=== PATIENT | female | born 1945 | race Caucasian/White ===

== ENCOUNTER → 2019-09-13 12:26 | Outpatient (BNVA) | payer MEDICARE, MEDICAID, SELFPAY | PROVIDERS: Family Provider Nurse Practitioner; PCP Nurse Practitioner; Referring Provider Nurse Practitioner; Visit Provider Anesthesiology Pain Medicine | DX: M54.9 Dorsalgia, unspecified (principal); M51.9 Unspecified thoracic, thoracolumbar and lumbosacral intervertebral disc disorder; F17.210 Nicotine dependence, cigarettes, uncomplicated; Z79.891 Long term (current) use of opiate analgesic | CPT/HCPCS: 99214 ==

== ENCOUNTER → 2020-01-24 08:58 | Outpatient (BNVA) | payer MEDICARE, MEDICAID, SELFPAY | PROVIDERS: Family Provider Nurse Practitioner; PCP Nurse Practitioner; Visit Provider Anesthesiology | DX: M51.9 Unspecified thoracic, thoracolumbar and lumbosacral intervertebral disc disorder (principal); M54.9 Dorsalgia, unspecified; F17.210 Nicotine dependence, cigarettes, uncomplicated; Z71.6 Tobacco abuse counseling; Z79.891 Long term (current) use of opiate analgesic | CPT/HCPCS: 99214 ==

== ENCOUNTER → 2020-07-23 13:39 | Outpatient (BNVA) | payer MEDICARE, MEDICAID, SELFPAY | PROVIDERS: Family Provider Nurse Practitioner; PCP Nurse Practitioner; Referring Provider Nurse Practitioner; Visit Provider Anesthesiology Pain Medicine | DX: M47.814 Spondylosis without myelopathy or radiculopathy, thoracic region (principal); M51.36 Other intervertebral disc degeneration, lumbar region; M47.816 Spondylosis without myelopathy or radiculopathy, lumbar region; M47.819 Spondylosis without myelopathy or radiculopathy, site unspecified; M54.9 Dorsalgia, unspecified; F17.210 Nicotine dependence, cigarettes, uncomplicated; M85.88 Other specified disorders of bone density and structure, other site; S32.010A Wedge compression fracture of first lumbar vertebra, initial encounter for closed fracture; S32.020A Wedge compression fracture of second lumbar vertebra, initial encounter for closed fracture; S32.030A Wedge compression fracture of third lumbar vertebra, initial encounter for closed fracture; X58.XXXA Exposure to other specified factors, initial encounter; I70.0 Atherosclerosis of aorta | CPT/HCPCS: 72072; 72114; 99214 ==

== ENCOUNTER 2020-07-23 15:40 | Outpatient (CLI) | payer MEDICARE, MEDICAID, SELFPAY ==
--- NOTE | 2020-07-23 15:47 | XR_ITS ---
WS: [id number] LUMBAR SPINE: 5 VIEWS TECHNIQUE: AP, obliques, lateral and L5-S1 spot. HISTORY: M47.816 - Spondylosis without myelopathy or radiculopathy, lumbar region COMPARISON: None available. Straightening of the normal lumbar lordosis. Diffuse osteopenia. 20% compression fractures at L1 and L3. 10% at L2. No retropulsion. Disc spaces are narrowed. Endplate osteophytes at all levels. At least mild to moderate bilateral for aminal narrowing. Most significant foraminal narrowing at L4-5 and L5-S1. SI joints are symmetric bilaterally. No soft tissue abnormalities. Moderate atherosclerosis aorta. Prior LEFT hip arthroplasty. XR/XR lumbar spine min 4V [id number] IMPRESSION: 1. Diffuse osteopenia. 2. Mild compression fractures at L1, L2 and L3. 3. Moderate atherosclerosis aorta.
--- NOTE | 2020-07-23 15:47 | XR_ITS ---
WS: [id number] THORACIC SPINE TECHNIQUE: AP and lateral views are performed. HISTORY: M47.819 - Spondylosis without myelopathy or radiculopathy, site unspecified COMPARISON: None available. Diffuse osteopenia. Mild straightening of the normal thoracic vertebrae. Mild S-shaped scoliosis of t he thoracic vertebrae. Pedicles are all identified. No fractures. XR/XR thoracic spine 3V* [id number] IMPRESSION: Osteopenia and mild S-shaped scoliosis thoracic spine. No fracture.
== END 2020-07-23 15:41 | disposition home or self-care (01) ==
PROVIDERS: PCP Nurse Practitioner; Visit Provider Anesthesiology Pain Medicine
DX: M47.816 Spondylosis without myelopathy or radiculopathy, lumbar region (principal); M47.814 Spondylosis without myelopathy or radiculopathy, thoracic region; M85.88 Other specified disorders of bone density and structure, other site; S32.010A Wedge compression fracture of first lumbar vertebra, initial encounter for closed fracture; S32.020A Wedge compression fracture of second lumbar vertebra, initial encounter for closed fracture; S32.030A Wedge compression fracture of third lumbar vertebra, initial encounter for closed fracture; X58.XXXA Exposure to other specified factors, initial encounter; I70.0 Atherosclerosis of aorta
CPT/HCPCS: 72072; 72114

== ENCOUNTER → 2020-08-06 09:09 | Outpatient (BNVA) | payer MEDICARE, MEDICAID, SELFPAY | PROVIDERS: PCP Nurse Practitioner; Visit Provider Anesthesiology Pain Medicine | DX: M79.18 Myalgia, other site (principal); M51.36 Other intervertebral disc degeneration, lumbar region; M47.814 Spondylosis without myelopathy or radiculopathy, thoracic region; M47.816 Spondylosis without myelopathy or radiculopathy, lumbar region; M54.9 Dorsalgia, unspecified; F17.210 Nicotine dependence, cigarettes, uncomplicated | CPT/HCPCS: 20553; 99215; J1030; J3490 ==

== ENCOUNTER → 2020-08-13 13:47 | Outpatient (BNVA) | payer MEDICARE, MEDICAID, SELFPAY | PROVIDERS: PCP Nurse Practitioner; Visit Provider Anesthesiology Pain Medicine | DX: M47.816 Spondylosis without myelopathy or radiculopathy, lumbar region (principal); M54.9 Dorsalgia, unspecified; F17.210 Nicotine dependence, cigarettes, uncomplicated | CPT/HCPCS: 64493; 64494; 64495; J1040; J3490 ==

== ENCOUNTER → 2020-09-03 12:27 | Outpatient (BNVA) | payer MEDICARE, MEDICAID, SELFPAY | PROVIDERS: PCP Nurse Practitioner; Visit Provider Anesthesiology Pain Medicine | DX: G89.29 Other chronic pain (principal); M47.814 Spondylosis without myelopathy or radiculopathy, thoracic region; M51.36 Other intervertebral disc degeneration, lumbar region; M47.816 Spondylosis without myelopathy or radiculopathy, lumbar region; M54.9 Dorsalgia, unspecified; M62.830 Muscle spasm of back; F17.210 Nicotine dependence, cigarettes, uncomplicated | CPT/HCPCS: 99214 ==

== ENCOUNTER → 2020-10-31 12:28 | Outpatient (BNVA) | payer MEDICARE, MEDICAID, SELFPAY | PROVIDERS: PCP Nurse Practitioner; Visit Provider Anesthesiology Pain Medicine | DX: M79.18 Myalgia, other site (principal); M54.9 Dorsalgia, unspecified; M47.814 Spondylosis without myelopathy or radiculopathy, thoracic region; M51.36 Other intervertebral disc degeneration, lumbar region; M47.816 Spondylosis without myelopathy or radiculopathy, lumbar region; F17.210 Nicotine dependence, cigarettes, uncomplicated | CPT/HCPCS: 20553; 99213; J1030; J3490 ==

== ENCOUNTER 2020-11-20 13:56 | Emergency (ER) | payer MEDICARE, MEDICAID, SELFPAY ==
[2020-11-20 14:00] VITALS: BP 132/58; PULSE 88; RESP 18; O2SAT 79; BMI 16.2
[2020-11-20 14:15] VITALS: BP 135/62; PULSE 82; RESP 18; O2SAT 100
--- NOTE | 2020-11-20 14:15 | XR_ITS ---
WS: [id number] Portable AP upright chest, 11/20/2020 Clinical Data: sob Comparison: Portable chest, 06/18/2019. Findings: There is a minimal patchy opacity in the right lower lobe with a small right effusion. The diaphragms are flattened. No nodules, masses or effusions are seen. The heart is normal. The pulmonar y vascularity is not increased. No pneumothorax is seen. The aortic arch and descending aorta show c alcification and tortuosity. XR/XR chest 1V portable [id number] Impression: 1. Minimal patchy right lower lobe opacity with small right effusion which coul d represent acute pneumonia. 2. Recommend repeat x-ray in one to 2 days. 3. Hyperinflation. 4. Atherosclerosis.
--- NOTE | 2020-11-20 14:17 | W.ED.SOB ---
HPI - SOB/Dyspnea General: Chief Complaint: Shortness of Breath/Dyspnea Stated Complaint: DIFF BREATHING Time Seen by Provider: 11/20/20 14:09 History of Present Illness: HPI Narrative: 75-year-old female comes in short of breath. This is going on for about 3 days. EMS states that her O2 sat was 83% on room air. She was put on 4 L which improved her O2 sat to 93%. She denies any fever or chills. No nausea or vomiting. No ear pain, runny nose or sore throat. No chest pain. She has had a white/clear productive cough. No pain or burning with urination. No diarrhea or constipation. No abdominal or flank pain. She did use an albuterol inhaler though she does not have a spacer. She used it approximately 2 hours ago. She did feel it helped somewhat. She does wear O2 per nasal cannula at nighttime on a as needed basis. She states she does have a history of COPD. She denies any previous DE or CVA. She denies any leg swelling. MD elicited complaint: shortness of breath and cough Pertinent past history: COPD Onset (ago): day(s) (x 3 days) Context: allergen exposure (She states her daughter put something in the washer or dryer that made her worse.) Timing: constant and progressively worsening Severity: moderate Exacerbating factors: exertion and coughing Relieving factors: nothing Known history of: COPD Associated symptoms: Reports cough; Deny abdominal pain, chest congestion, chest pain, diaphoresis, dizziness, extremity pain, fever(s), hemoptysis, lightheadedness, nausea, palpitations or vomiting Treatment prior to arrival: oxygen Review of Systems General: Reports: 10 or more systems reviewed and unremarkable except in HPI and below Const: Denies: fever(s), chills, body aches, fatigue, malaise or diaphoresis ENMT: Denies: throat pain, odynophagia, ear or mastoid pain, nasal discharge or nasal congestion Card: Reports: dyspnea on exertion; Denies: chest pain, palpitations, irregular heart rhythm, edema, lightheadedness or leg pain with exertion Resp: Reports: dyspnea and productive cough; Denies: wheezing, stridor, pain on inspiration, hemoptysis or chest congestion GI: Denies: abdominal pain, nausea, vomiting, hematemesis, dysphagia or diarrhea : Denies: flank pain, difficulty voiding or dysuria Musc: Denies: neck pain, back pain, extremity pain or extremity swelling Neuro: Denies: headache(s), numbness in extremities, weakness in extremities, difficulty walking, frequent falls, dizziness, vertigo, confusion or Slurred speech present Psych: Denies: anxiety or depression PFSH ED PFSH: Medical History Dorsalgia Long-term current use of opiate analgesic Lumbar disc disease Opioid contract exists Smoker Surgical History S/P appendectomy 1960 Status post hip hemiarthroplasty LEFT HIP - 05/12/19 Family History Mother Cancer Father Heart disease Brother Heart disease Social History Smoking and tobacco status: current every day smoker cigarettes Packs smoked per day: 0.5 Years cigarettes smoked: 20 Second hand smoke exposure: No Alcohol intake: never Caregiver/support person: Yes (LIVES WITH DAUGHTER) Lives independently: Yes 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 She appears to be in no acute distress at this time. She is wearing O2 per nasal cannula. Const: COMMON NORMALS: no acute distress, average body habitus, patient oriented x3, no limitations and alert GENERAL APPEARANCE: cooperative, comfortable, well kempt, well developed and frail appearing; not in distress, not lethargic and not ill appearing NUTRITIONAL APPEARANCE: thin ORIENTATION/CONSCIOUSNESS: Yes awake, Yes oriented to person, Yes oriented to place and Yes oriented to time; not lethargic HENMT: COMMON NORMALS: normocephalic and atraumatic; oral mucous membranes not moist (Dry oral mucosa) HEAD & SCALP: normal to inspection, normocephalic and atraumatic Eye: COMMON NORMALS: Equal, round and reactive pupils present, EOMs intact bilaterally, conjunctivae normal and no scleral icterus GENERAL EYE: appearance normal, both eyes and all related structures CONJUNCTIVA: Yes conjunctivae normal PUPIL: Yes Equal, round and reactive pupils present Neck/C-Spine: COMMON NORMALS: full ROM, no lymphadenopathy, supple, no meningeal signs, no JVD, Thyroid normal and No carotid bruits THYROID: Thyroid normal Chest: COMMONS NORMALS: normal inspection of the chest and normal palpation of entire chest wall Resp: COMMON NORMALS: normal respiratory effort, No retractions and No use of accessory muscles EFFORT & INSPECTION: Yes able to speak in complete sentences, Yes symmetric chest movement, No respiratory distress, No decreased respiratory effort, No labored, No grunting, No stridor, No Actively coughing, No retractions and No uses accessory muscles AUSCULTATION: no crackles, no rales, no rhonchi and no wheezes PERCUSSION: other (Moderately decreased breath sounds at the bases bilaterally) Cardio: COMMON NORMALS: no JVD, regular rate, regular rhythm, No gallops present (Cardio), No clicks present (Cardio), No murmurs present (Cardio), No rub (Cardio) and Peripheral pulses 2+ throughout RATE: regular rate RHYTHM: regular rhythm HEART SOUNDS: Murmur heart sound present PERIPHERAL PULSES: Peripheral pulses 2+ throughout GI: COMMON NORMALS: Normal to inspection, nondistended, normoactive bowel sounds present, Soft to palpation, non-tender, No hepatosplenomegaly present and no masses PALPATION: Yes Soft to palpation and Yes No hepatosplenomegaly present : COMMON NORMALS: Yes no CVA tenderness BLADDER/KIDNEY EXAM: Yes no CVA tenderness Back/Pelvis: COMMON NORMALS: no CVA tenderness Extremity: COMMON NORMALS: normal to inspection, full ROM, capillary refill normal, no joint enlargement and no calf tenderness GENERAL: Yes normal exam except as noted and Yes other findings (Mild bilateral pedal edema noted.) Neuro: COMMON NORMALS: patient oriented x3, CN's II-XII intact bilaterally, moves all extremities, no focal motor deficits and gait normal SENSORIUM/ORIENTATION: Yes alert, Yes oriented to person, Yes oriented to place, Yes oriented to time, Yes Orientation impaired, No lethargic, No somnolent, No obtunded and No stuporous MENINGEAL SIGNS: Yes no meningeal signs Psych: COMMON NORMALS: mental status grossly normal, Normal thought process present, cooperative, normal affect, speech normal and activity/motor behavior normal APPEARANCE: Yes grossly normal and Yes well kempt SPEECH: Yes normal speech THOUGHT PROCESS: Normal thought process present Course Reevaluation(s): Reevaluation #1: After breathing treatment patient was able to be on just 2 L per nasal cannula with an O2 saturation greater than 90%. Patient also felt she was breathing somewhat better. Vital Signs: Vital signs: Vital Signs Pulse Rate 88 11/20/20 18:21 Respiratory Rate 16 11/20/20 18:10 Blood Pressure 135/62 11/20/20 14:15 Pulse Oximetry 94 11/20/20 18:10 MDM - SOB/Dyspnea Lab Data: Labs: Lab Results 11/20/20 11/20/20 11/20/20 Range/Units 14:55 14:55 14:55 WBC Cancelled Corrected WBC Cancelled RBC Cancelled Hgb Cancelled Hct Cancelled MCV Cancelled MCH Cancelled MCHC Cancelled RDW Cancelled Plt Count Cancelled MPV Cancelled Gran % Cancelled Neut % (Auto) Cancelled Lymph % (Auto) Cancelled Ripley % (Auto) Cancelled Eos % (Auto) Cancelled Baso % (Auto) Cancelled Neut # (Auto) Cancelled Lymph # (Auto) Cancelled R[place]y # (Auto) Cancelled Eos # (Auto) Cancelled Baso # (Auto) Cancelled Absolute Gran (aut o) Cancelled Nucleated RBC % (a uto) Cancelled Nucleated RBCs # Cancelled Sodium 138 (136-145) mmol/L Potassium 3.3 L (3.5-5.1) mmol/L Chloride 94 L (98-107) mmol/L Carbon Dioxide 30 H (22-29) mmol/L Anion Gap 17.3 (5-19) BUN 17 (8-23) mg/dL Creatinine 0.6 (0.5-0.9) mg/dL GFR Calculation Not Reportable Glucose 116 H (65-115) mg/dL Calculated Osmolal ity 289 (285-295) mOsm/k g Lactate 1.0 (0.5-2.2) mmol/L Calcium 9.2 (8.5-10.5) mg/dL Magnesium 2.2 (1.7-2.3) mg/dL Total Bilirubin 0.5 (0.15-1.2) mg/dL AST 15 (0-32) U/L ALT 12 (0-33) U/L Alkaline Phosphata se 99 (35-105) IU/L NT-Pro-B Natriuret Pep 440 (0-450) pg/mL Total Protein 7.5 (6.6-8.7) g/dL Albumin 3.8 (3.5-5.2) g/dL Globulin 3.7 (1.3-4.6) g/dL Influenza Type A A g (Negative) Influenza Type B A g (Negative) SARS-CoV-2 Ag (Rap id) (Negative) 11/20/20 11/20/20 11/20/20 Range/Units 15:42 16:45 16:45 WBC 17.2 H Corrected WBC RBC 4.08 L Hgb 12.3 Hct 37.7 MCV 92.4 MCH 30.1 MCHC 32.6 RDW 13.4 Plt Count 351 MPV 9.8 Gran % Neut % (Auto) 84.0 Lymph % (Auto) 6.5 R[place]y % (Auto) 8.4 Eos % (Auto) 0.1 Baso % (Auto) 0.5 Neut # (Auto) 14.42 H Lymph # (Auto) 1.1 [place] # (Auto) 1.5 H Eos # (Auto) 0.0 Baso # (Auto) 0.1 Absolute Gran (aut o) Nucleated RBC % (a uto) 0 Nucleated RBCs # 0.0 Sodium (136-145) mmol/L Potassium (3.5-5.1) mmol/L Chloride (98-107) mmol/L Carbon Dioxide (22-29) mmol/L Anion Gap (5-19) BUN (8-23) mg/dL Creatinine (0.5-0.9) mg/dL GFR Calculation Glucose (65-115) mg/dL Calculated Osmolal ity (285-295) mOsm/k g Lactate (0.5-2.2) mmol/L Calcium (8.5-10.5) mg/dL Magnesium (1.7-2.3) mg/dL Total Bilirubin (0.15-1.2) mg/dL AST (0-32) U/L ALT (0-33) U/L Alkaline Phosphata se (35-105) IU/L NT-Pro-B Natriuret Pep (0-450) pg/mL Total Protein (6.6-8.7) g/dL Albumin (3.5-5.2) g/dL Globulin (1.3-4.6) g/dL Influenza Type A A g Negative (Negative) Influenza Type B A g Negative (Negative) SARS-CoV-2 Ag (Rap id) Negative (Negative) Discharge Plan Discharge Patient Disposition: Home Clinical Impression: Acute hypokalemia Community acquired pneumonia Qualifiers: Laterality: right Lung location: lower lobe of lung Qualified Code(s): J18.9 - Pneumonia, unspecified organism Condition: Stable Prescriptions: New levofloxacin 500 mg tablet 500 mg PO DAILY 6 Days Qty: 6 RF: 0 No Action naproxen 500 mg tablet 500 mg PO BID PRN (Reason: Pain) RF: 0 triamterene-hydrochlorothiazid 37.5-25 mg tablet 1 tab PO DAILY@15 RF: 0 cyclobenzaprine 5 mg tablet 5 mg PO TID PRN (Reason: muscle spasm) Qty: 90 RF: 1 amlodipine 10 mg tablet 10 mg PO DAILY@15 RF: 0 gabapentin 300 mg capsule 300 mg PO DAILY@15 RF: 0 pantoprazole 40 mg tablet,delayed release (DR/EC) 40 mg PO DAILY@15 RF: 0 acetaminophen [Tylenol Extra Strength] 500 mg tablet 1,500 mg PO PRN RF: 0 meclizine 12.5 mg Tablet 12.5 mg PO PRN RF: 0 ProAir HFA 90 mcg/actuation HFA aerosol inhaler 2 puff INHALATION Q4H PRN (Reason: Wheezing) RF: 0 Myrbetriq 25 mg tablet extended release 24 hr 25 mg PO DAILY@15 RF: 0 Discharge Orders: Discharge ED (Routine); Ordered 11/20/20 Ordered By: Akash Estrada Referrals: Mary Johnson NP [Primary Care Provider] - Discharge Diet: Advance as tolerated Discharge Activity: Increase activity as tolerated Patient Instructions: Opioid Safety Activity Restrictions/Additional Instructions: Please use your albuterol, 2 puffs every 4 hours. Please use [id number] Mucinex on a daily basis. Follow-up with your primary care provider. Please wear your O2 cannula at 2 L per nasal. 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
[2020-11-20 15:31] LABS: Alanine Aminotransferase 12 U/L (0-33); Albumin Level 3.8 g/dL (3.5-5.2); Alkaline Phosphatase 99 IU/L (35-105); Anion Gap 17.3 (5-19); Aspartate Amino Transferase 15 U/L (0-32); Blood Urea Nitrogen 17 mg/dL (8-23); Calcium 9.2 mg/dL (8.5-10.5); Carbon Dioxide 30 mmol/L (22-29); Chloride 94 mmol/L (98-107); Creatinine Clr Calc Pharmacy 43.9439; Globulin 3.7 g/dL (1.3-4.6); Glucose 116 mg/dL (65-115); Magnesium 2.2 mg/dL (1.7-2.3); NT Pro B Type Natriuretic Pept 440 pg/mL (0-450); Osmolality Calculated 289 mOsm/kg (285-295); Potassium 3.3 mmol/L (3.5-5.1); Sodium 138 mmol/L (136-145); Total Bilirubin 0.5 mg/dL (0.15-1.2); Total Protein 7.5 g/dL (6.6-8.7)
[2020-11-20 15:50] LABS: Basophils # 0.1 10^3/uL (0.0-0.1); Basophils % 0.5 %; Eosinophils % 0.1 %; Hematocrit 37.7 % (37.0-47.0); Hemoglobin 12.3 g/dL (11.5-15.3); Lymphocytes # 1.1 10^3/uL (0.8-4.8); Lymphocytes % 6.5 %; Mean Corpuscular HGB Conc 32.6 g/dL (30.0-36.0); Mean Corpuscular Hemoglobin 30.1 pg (28.0-34.0); Mean Corpuscular Volume 92.4 fL (81-99); Mean Platelet Volume 9.8 fL (7.4-10.4); Monocytes # 1.5 10^3/uL (0.2-0.9); Monocytes % 8.4 %; Neutrophils # 14.42 10^3/uL (1.8-7.7); Nucleated Red Blood Cells % 0 %; Platelet Count 351 10^3/cmm (130-400); Red Blood Count 4.08 10^6/uL (4.1-5.3); Red Cell Distribution Width 13.4 % (12.1-15.1); White Blood Count 17.2 10^3/uL (4.0-10.0)
[2020-11-20 17:32] LABS: Influenza A by IFA Negative (Negative); Influenza B by IFA Negative (Negative); SARS Covid-2 Antigen Negative (Negative)
[2020-11-20] MEDS: levofloxacin-dextrose 5 % 500 MG/100 ML PREMIX 100 MG IV (17:59)
[2020-11-20 18:10] VITALS: PULSE 88; RESP 16; O2SAT 94
[2020-11-20] MEDS: ipratropium-albuterol 3 mL Neb INHALATION (18:10)
[2020-11-20 18:21] VITALS: PULSE 88
[2020-11-20] MEDS: potassium chloride ER 20 mEq Tablet 40 MEQ PO (18:54)
[2020-11-20 19:36] VITALS: BP 117/50; PULSE 85; O2SAT 93
== END 2020-11-20 21:20 | disposition home or self-care (01) ==
PROVIDERS: Emergency Provider Emergency Medicine; PCP Nurse Practitioner
DX: J18.9 Pneumonia, unspecified organism (principal); E87.6 Hypokalemia; F17.210 Nicotine dependence, cigarettes, uncomplicated; I70.0 Atherosclerosis of aorta
CPT/HCPCS: 36415; 71045; 80053; 83605; 83735; 83880; 85025; 87426; 87804; 94640; 96365; 99284; J1956

== ENCOUNTER 2020-11-25 06:00 | Outpatient (RCR) | payer MEDICARE, MEDICAID, SELFPAY | END 2020-12-09 23:59 | disposition home or self-care (01) | LOC: MPT 06:00 | PROVIDERS: PCP Nurse Practitioner; Referring Provider Anesthesiology Pain Medicine; Visit Provider Anesthesiology Pain Medicine | DX: M54.5 Low back pain (principal); G89.29 Other chronic pain | CPT/HCPCS: 97110; 97140; 97162; G0283 ==

== ENCOUNTER 2020-12-10 06:00 | Outpatient (RCR) | payer MEDICARE, MEDICAID, SELFPAY | END 2021-01-08 23:59 | disposition home or self-care (01) | LOC: MPT 06:00 | PROVIDERS: PCP Nurse Practitioner; Referring Provider Anesthesiology Pain Medicine; Visit Provider Anesthesiology Pain Medicine | DX: M54.5 Low back pain (principal); G89.29 Other chronic pain | CPT/HCPCS: 97110; 97140; G0283 ==

== ENCOUNTER → 2020-12-18 09:45 | Outpatient (BNVA) | payer MEDICARE, MEDICAID, SELFPAY | PROVIDERS: PCP Nurse Practitioner; Visit Provider Anesthesiology Pain Medicine | DX: M79.18 Myalgia, other site (principal); M54.9 Dorsalgia, unspecified; M47.814 Spondylosis without myelopathy or radiculopathy, thoracic region; M51.36 Other intervertebral disc degeneration, lumbar region; M47.816 Spondylosis without myelopathy or radiculopathy, lumbar region; F17.210 Nicotine dependence, cigarettes, uncomplicated | CPT/HCPCS: 20553; 99213; J1030; J3490 ==

== ENCOUNTER → 2021-02-05 09:55 | Outpatient (BNVA) | payer MEDICARE, MEDICAID, SELFPAY | PROVIDERS: PCP Nurse Practitioner; Visit Provider Anesthesiology Pain Medicine | DX: M47.814 Spondylosis without myelopathy or radiculopathy, thoracic region (principal); M51.36 Other intervertebral disc degeneration, lumbar region; M47.816 Spondylosis without myelopathy or radiculopathy, lumbar region; M62.830 Muscle spasm of back; F17.210 Nicotine dependence, cigarettes, uncomplicated | CPT/HCPCS: 99213 ==

== ENCOUNTER → 2021-03-06 10:51 | Outpatient (BNVA) | payer MEDICARE, MEDICAID, SELFPAY | PROVIDERS: PCP Nurse Practitioner; Visit Provider Anesthesiology Pain Medicine | DX: M79.18 Myalgia, other site (principal); M47.814 Spondylosis without myelopathy or radiculopathy, thoracic region; M51.36 Other intervertebral disc degeneration, lumbar region; M47.816 Spondylosis without myelopathy or radiculopathy, lumbar region | CPT/HCPCS: 20553; 99213; 99214; J1030; J3490 ==

== ENCOUNTER → 2021-05-01 13:02 | Outpatient (BNVA) | payer MEDICARE, MEDICAID, SELFPAY | PROVIDERS: PCP Nurse Practitioner; Visit Provider Anesthesiology Pain Medicine | DX: G89.29 Other chronic pain (principal); M79.18 Myalgia, other site; M47.814 Spondylosis without myelopathy or radiculopathy, thoracic region; M51.36 Other intervertebral disc degeneration, lumbar region; M47.816 Spondylosis without myelopathy or radiculopathy, lumbar region; F17.200 Nicotine dependence, unspecified, uncomplicated | CPT/HCPCS: 20553; 99213; J1040; J3490 ==

== ENCOUNTER 2021-06-09 14:13 | Inpatient (IN) | payer MEDICARE, MEDICAID, SELFPAY ==
[2021-06-09 14:40] VITALS: BP 132/52; PULSE 82; RESP 18; TEMP 36.8; O2SAT 93; BMI 16.9
--- NOTE | 2021-06-09 14:59 | XRR_ITS ---
PROCEDURE INFORMATION: Exam: XR Chest Exam date and time: 06/09/2021 2:59 PM Age: 76 years old Clinical indication: Cough and dyspnea. TECHNIQUE: Imaging protocol: XR of the chest. Views: 1 view. COMPARISON: CR XR chest 1V portable [id number] 11/20/2020 2:25 PM FINDINGS: Lungs: There is smooth bulging of the right hilum that could reflect an ascending thoracic aortic aneurysm. A small nodule in the left upper lobe is similar to prior measuring 2.6 cm. A small nodule in the left lower lobe is unchanged measuring 2.9 mm. There is patchy opacity at the right base suspicious for developing infiltrate. Pleural spaces: No pleural effusion.. No pneumothorax. Heart/Mediastinum: Cardiac silhouette is approximately unchanged. No gross evidence of pneumomediastinum. Bones/joints: No gross fracture. XR/XR chest 1V portable [id number] IMPRESSION: 1. Patchy opacity at the right base suspicious for developing infiltrate. 2. Smooth bulging of the right hilum that could reflect an ascending thoracic aortic aneurysm. 3. Small nodules in the left appears similar to prior. 4. Consider CTA chest to further assess. Radiation Dose CTDIVOL = (mGy): DLP = (mGy-cm)
--- NOTE | 2021-06-09 15:01 | W.ED.GENADLT ---
HPI - General Adult General: Chief complaint: General Medical Stated complaint: SOB, BACK PAIN, 65% O2 Time Seen by Provider: 06/09/21 14:44 History of Present Illness: HPI narrative: 76-year-old female history of end-stage COPD she usually uses 2 L by nasal cannula however she takes off frequently to smoke. She is complaining of increasing shortness of breath arrival here is 94 L by nasal cannula maintaining a sat in the mid 90s. She has increasing swelling in her feet which she states is normal for her. She has chronic back pain which is unchanged she sees pain clinic for that. She denies any chest pain or fever sputum production is at her baseline. Onset (ago): minute(s) Relieving factors: rest and other (Oxygen) Exacerbating factors: movement and other (Exertion) Associated symptoms: Reports short of breath; Deny chest pain, confusion, cough, diaphoresis, decreased appetite, dyspnea, fevers/chills, headache(s), malaise, nausea, rash, palpitations, seizures, syncope, vomiting or weakness Treatments prior to arrival: none Review of Systems Const: Denies: malaise or diaphoresis ENMT: Denies: throat pain, ear or mastoid pain, nasal discharge or nasal congestion Card: Denies: chest pain, palpitations or syncope Resp: Denies: dyspnea GI: Denies: nausea or vomiting : Denies: flank pain, difficulty voiding, dysuria, urinary frequency or urinary urgency Skin/Breast: Denies: rash Neuro: Denies: headache(s) or confusion PFS ED PFSH: Medical History (Updated 06/16/21 @ 09:50 by Manjinder Reyes DO) Acute pulmonary embolism At low risk for fall Carotid arterial disease Dorsalgia Facet arthropathy, lumbar Hepatic lesion Hypertension Left foot drop Leg swelling Long-term current use of opiate analgesic Lumbar disc disease Lymphadenopathy Myalgia, other site Opioid contract exists Other bursitis of hip, left hip Pancreatic lesion PVD (peripheral vascular disease) Smoker Spasm of back muscles Unstable left ankle Surgical History S/P appendectomy 1960 Status post hip hemiarthroplasty LEFT HIP - 05/12/19 Family History Mother Cancer Father Heart disease Brother Heart disease Social History Second hand smoke exposure: No Alcohol intake: never Caregiver/support person: Yes (LIVES WITH DAUGHTER) Lives independently: Yes 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 History of recent travel: No Physical Exam Const: COMMON NORMALS: no acute distress GENERAL APPEARANCE: cooperative and comfortable ORIENTATION/CONSCIOUSNESS: Yes awake, Yes oriented to person, Yes oriented to place and Yes oriented to time HENMT: COMMON NORMALS: normocephalic, atraumatic and hearing grossly normal bilaterally HEAD & SCALP: normocephalic and atraumatic Neck/C-Spine: COMMON NORMALS: no JVD Resp: COMMON NORMALS: No use of accessory muscles AUSCULTATION: rhonchi and wheezes Cardio: COMMON NORMALS: no JVD, regular rate, regular rhythm and No murmurs present (Cardio) RATE: regular rate RHYTHM: regular rhythm GI: COMMON NORMALS: Soft to palpation and No hepatosplenomegaly present AUSCULTATION: Yes normoactive bowel sounds PALPATION: Yes Soft to palpation, No Tenderness to palpation present (GI), No Guarding due to palpation present (GI) and Yes No hepatosplenomegaly present Extremity: COMMON NORMALS: normal to inspection, capillary refill normal, no clubbing, cyanosis or edema, no calf tenderness and no pedal edema Neuro: SENSORIUM/ORIENTATION: Yes oriented to person, Yes oriented to place and Yes oriented to time Skin: COMMON NORMALS: no rashes or lesions noted GENERAL SKIN EXAM: no rashes or lesions noted Course Vital Signs: Vital signs: Vital Signs Temperature 97.7 F 06/12/21 11:17 Pulse Rate 95 06/12/21 16:12 Respiratory Rate 17 06/12/21 15:18 Blood Pressure 102/55 06/12/21 11:17 Pulse Oximetry 93 06/12/21 15:18 MDM - General Adult MDM Narrative: Medical decision making narrative: Labs imaging and EKG reviewed with the patient. Patient has pulmonary embolism pneumonia with masses in the liver and pancreas as well as lung nodules. She is cachectic. Significant risk for lung cancer. Discussed with hospitalist will admit anticoagulate will need further evaluation also need antibiotic coverage for pneumonia. Lab Data: Labs: Lab Results 06/09/21 06/09/2121 13:15 13:15 13:18 WBC 17.2 10^3/uL H 10 ^3/uL (4.0-10.0) RBC 4.31 10^6/uL 10^6 /uL (4.1-5.3) Hgb 12.7 g/dL g/dL (11.5-15.3) Hct 39.5 % % (37.0-47.0) MCV 91.6 fl fl (81-99) MCH 29.5 pg pg (28.0-34.0) MCHC 32.2 g/dL g/dL (30.0-36.0) RDW 14.0 % % (12.1-15.1) Plt Count 406 10^3/cmm H 10 ^3/cmm (130-400) MPV 10.5 fL H fL (7.4-10.4) Neut % (Auto) 86.4 % % Lymph % (Auto) 6.8 % % Brooks % (Auto) 6.0 % % Eos % (Auto) 0.1 % % Baso % (Auto) 0.4 % % Neut # (Auto) 14.89 10^3/uL H 1 0^3/uL (1.8-7.7) Lymph # (Auto) 1.2 10^3/uL 10^3/ uL (0.8-4.8) Brooks # (Auto) 1.0 10^3/uL H 10^ 3/uL (0.2-0.9) Eos # (Auto) 0.0 10^3/uL 10^3/ uL (0.0-0.8) Baso # (Auto) 0.1 10^3/uL 10^3/ uL (0.0-0.1) Nucleated RBC % (a uto) 0 % % Nucleated RBCs # 0.0 /100WBC /100W BC Specimen Type Sample Site ABG pH ABG pCO2 ABG pO2 ABG HCO3 ABG O2 Saturation ABG Base Excess Wily Test A-a O2 Gradient Hematocrit Hgb O2 Saturation Carboxyhemoglobin Methemoglobin Total Hemoglobin Ionized Calcium O2 Delivery Device O2 Liters/Min FiO2 Operations Forester ID Sodium 132 mmol/L L mmol /L (136-145) Potassium 3.6 mmol/L mmol/L (3.5-5.1) Chloride 94 mmol/L L mmol/ L (98-107) Carbon Dioxide 22 mmol/L mmol/L (22-29) Anion Gap 19.6 H (5-19) BUN 12 mg/dL mg/dL (8-23) Creatinine 0.5 mg/dL mg/dL (0.5-0.9) GFR Calculation Not Reportable Glucose 102 mg/dL mg/dL (65-115) Calculated Osmolal ity 274 mOsm/kg L mOs m/kg (285-295) Calcium 9.1 mg/dL mg/dL (8.5-10.5) Total Bilirubin 0.3 mg/dL mg/dL (0.15-1.2) AST 20 U/L U/L (0-32) ALT 10 U/L U/L (0-33) Alkaline Phosphata se 82 IU/L IU/L (35-105) Total Protein 7.0 g/dL g/dL (6.6-8.7) Albumin 4.1 g/dL g/dL (3.5-5.2) Globulin 2.9 g/dL g/dL (1.3-4.6) Procalcitonin 0.07 ng/mL ng/mL (0-0.5) Nasal/Oral COVID-1 9 PCR SARS-CoV-2 Ag (Rap id) 06/09/21 06/09/21 06/09/21 14:59 16:14 16:14 WBC RBC Hgb Hct MCV MCH MCHC RDW Plt Count MPV Neut % (Auto) Lymph % (Auto) Brooks % (Auto) Eos % (Auto) Baso % (Auto) Neut # (Auto) Lymph # (Auto) Brooks # (Auto) Eos # (Auto) Baso # (Auto) Nucleated RBC % (a uto) Nucleated RBCs # Specimen Type Arterial Sample Site Brachial, left ABG pH 7.42 (7.35-7.45) ABG pCO2 43.5 mmHg mmHg (35-45) ABG pO2 68.2 mmHg L mmHg (80.0-100.0) ABG HCO3 28.0 mmol/L H mmo l/L (22-26) ABG O2 Saturation 94.4 ABG Base Excess 3.0 mmol/L H mmol /L (-2.0-2.0) Wily Test Pos A-a O2 Gradient 17.5 mmHg H mmHg (5-10) Hematocrit 38.9 % % (37-47) Hgb O2 Saturation 90.4 % L % (95-100) Carboxyhemoglobin 3.4 %THgb %THgb (0.4-20.1) Methemoglobin 0.8 % % (0.4-1.5) Total Hemoglobin 12.7 g/dL g/dL (12-16) Ionized Calcium 1.2 mmol/L mmol/L (1.1-1.4) O2 Delivery Device Nc O2 Liters/Min 4.0 % % FiO2 36.0 % % Operations Forester ID [place] Sodium 135.0 mmol/L mmol /L (131-143) Potassium 3.3 mmol/L L mmol /L (3.5-5.0) Chloride Carbon Dioxide Anion Gap BUN Creatinine GFR Calculation Glucose 108.0 mg/dL mg/dL (70-115) Calculated Osmolal ity Calcium Total Bilirubin AST ALT Alkaline Phosphata se Total Protein Albumin Globulin Procalcitonin Nasal/Oral COVID-1 9 PCR Not detected SARS-CoV-2 Ag (Rap id) Negative (Negative) Discharge Plan Discharge Patient Disposition: Admitted As Inpatient Admit Provider: Erica Ahumada Clinical Impression: Pulmonary embolism, Pneumonia, Mass of pancreas, Liver mass, Lung nodule, Adult failure to thrive Condition: Stable Discharge Diet: Cardiac Discharge Activity: Increase activity as tolerated Coding Level of Care Code ED Electrician Assistant for Chg Fwd Exam Comprehensive
[2021-06-09 15:27] LABS: Basophils # 0.1 10^3/uL (0.0-0.1); Basophils % 0.4 %; Eosinophils % 0.1 %; Hematocrit 39.5 % (37.0-47.0); Hemoglobin 12.7 g/dL (11.5-15.3); Lymphocytes # 1.2 10^3/uL (0.8-4.8); Lymphocytes % 6.8 %; Mean Corpuscular HGB Conc 32.2 g/dL (30.0-36.0); Mean Corpuscular Hemoglobin 29.5 pg (28.0-34.0); Mean Corpuscular Volume 91.6 fl (81-99); Mean Platelet Volume 10.5 fL (7.4-10.4); Neutrophils # 14.89 10^3/uL (1.8-7.7); Neutrophils % 86.4 %; Nucleated Red Blood Cells % 0 %; Platelet Count 406 10^3/cmm (130-400); Red Blood Count 4.31 10^6/uL (4.1-5.3); White Blood Count 17.2 10^3/uL (4.0-10.0)
[2021-06-09 15:28] LABS: Alanine Aminotransferase 10 U/L (0-33); Albumin Level 4.1 g/dL (3.5-5.2); Alkaline Phosphatase 82 IU/L (35-105); Anion Gap 19.6 (5-19); Aspartate Amino Transferase 20 U/L (0-32); Blood Urea Nitrogen 12 mg/dL (8-23); Calcium 9.1 mg/dL (8.5-10.5); Carbon Dioxide 22 mmol/L (22-29); Chloride 94 mmol/L (98-107); Creatinine Clr Calc Pharmacy 44.9811; Globulin 2.9 g/dL (1.3-4.6); Glucose 102 mg/dL (65-115); Osmolality Calculated 274 mOsm/kg (285-295); Potassium 3.6 mmol/L (3.5-5.1); Sodium 132 mmol/L (136-145); Total Bilirubin 0.3 mg/dL (0.15-1.2)
[2021-06-09 15:36] LABS: ABG PCO2 43.5 mmHg (35-45); ABG PH Result 7.42 (7.35-7.45); Alveolar-Arterial Oxygen Gradi 17.5 mmHg (5-10); Arterial Blood Gas Hematocrit 38.9 % (37-47); Blood Gas Allen Test Pos; Blood Gas Operator Identificat MONRO; Blood Gas Sample Site Brachial, left; Blood Gas Sample Type Arterial; Carboxyhemoglobin 3.4 %THgb (0.4-20.1); HGB O2 Sat 90.4 % (95-100); Ionized Calcium Level - ABG 1.2 mmol/L (1.1-1.4); Methemoglobin 0.8 % (0.4-1.5); Oxygen Device NC; Oxygen Saturation ABG 94.4; PO2 ABG 68.2 mmHg (80.0-100.0); Potassium Level - ABG 3.3 mmol/L (3.5-5.0); Total Hemoglobin 12.7 g/dL (12-16)
--- NOTE | 2021-06-09 15:48 | CTR_ITS ---
PROCEDURE INFORMATION: Exam: CTA Chest With Contrast Exam date and time: 06/09/2021 3:48 PM Age: 76 years old Clinical indication: Shortness of breath. Chronic back pain with spasms. TECHNIQUE: Imaging protocol: Computed tomographic angiography of the chest with contrast. 3D rendering (Not supervised by radiologist): MIP and/or 3D reconstructed images were created by the technologist. Radiation optimization: All CT scans at this facility use at least one of these dose optimization techniques: automated exposure control; mA and/or kV adjustment per patient size (includes targeted exams where dose is matched to clinical indication); or iterative reconstruction. Contrast material: OMNI 350; Contrast volume: 75 ml; Contrast route: INTRAVENOUS (IV); COMPARISON: CR XR chest 1V portable [id number] 06/09/2021 3:06 PM RADIATION DOSE METRICS: Total DLP (mGy-cm): 728.19 FINDINGS: Pulmonary arteries: There is a segmental pulmonary embolus in the right lower lobe (series 5, images 76 to 80). Aorta: No thoracic aortic aneurysm. No thoracic aortic dissection is seen. Great vessels off aortic arch: There is calcified atheromatous plaque involving the proximal right subclavian artery with probable moderate to severe underlying stenosis. This is partially obscured by streak artifact. This would predispose to subclavian steal syndrome. There are coarse calcifications at the origin of the left common carotid artery with probable mild narrowing. This is suboptimally assessed. Other arteries: There are coarse calcifications at the origin of the celiac artery with probable underlying stenosis. This is suboptimally assessed. Lungs: Patchy ground-glass and airspace opacity at the right base suspicious for pneumonia (possibly aspiration pneumonia). There is debris in the right lower lobe bronchial tree. There is mild peribronchial wall thickening. There is scarring in the right middle lobe. There is advanced centrilobular emphysema. No pulmonary mass. There are scattered granulomata bilaterally. Pleural spaces: No pleural effusion.. No pneumothorax. Heart: No pericardial effusion. Heart RV/LV ratio: The RV to LV ratio is 1. Lymph nodes: A precarinal lymph node measures 1.2 x 1.3 cm. A right hilar lymph node measures 1.1 x 1.4 cm. Diaphragm: Small hiatal hernia. Liver: There are numerous enhancing lesions in the liver measuring up to 1.4 cm. There is extrahepatic biliary ductal dilatation. Mild left hydronephrosis. A subcentimeter right renal hypodensity is too small to accurately characterize and requires no follow-up. A hypodense lesion in the pancreatic tail measures 3 mm. Indeterminate left adrenal nodule measuring 1.3 cm. Bones/joints: No acute fracture is identified. CT/CT angio chest [id number] IMPRESSION: 1. Segmental pulmonary embolus in the right lower lobe. There is no evidence of right heart strain. 2. Patchy ground-glass and airspace opacity at the right base suspicious for pneumonia (possibly aspiration pneumonia). There is debris in the right lower lobe bronchial tree. 3. There is mild peribronchial wall thickening; query viral infection/bronchitis, chronic bronchitis and/or asthma. 4. No thoracic aortic aneurysm. No thoracic aortic dissection. 5. There is calcified atheromatous plaque involving the proximal right subclavian artery with probable moderate to severe underlying stenosis. This is partially obscured by streak artifact. This would predispose to subclavian steal syndrome. 6. There are coarse calcifications at the origin of the left common carotid artery with probable mild narrowing. This is suboptimally assessed. 7. There are coarse calcifications at the origin of the celiac artery with probable underlying stenosis. This is suboptimally assessed. 8. Mediastinal and right hilar lymphadenopathy. 9. Advanced centrilobular emphysema. 10. Numerous enhancing lesions in the liver. Small hypodense lesion in the pancreatic tail. Indeterminate left adrenal nodule. Recommend nonemergent MR abdomen hepatic protocol with and without contrast to better characterize. 11. There is extrahepatic biliary ductal dilatation. Consider ultrasound to further assess. 12. Mild left hydronephrosis. Radiation Dose CTDIVOL = (mGy): DLP = 728.19 (mGy-cm)
[2021-06-09] MEDS: iohexol 350 mg/mL 100 mL Btl IV (15:58)
[2021-06-09] MEDS: levofloxacin-dextrose 5 % 750 MG/150 ML PREMIX 100 MG IV (16:34)
[2021-06-09 16:40] VITALS: BP 150/59; PULSE 91; RESP 22; O2SAT 94
[2021-06-09 17:12] LABS: SARS Covid-2 Antigen Negative (Negative)
[2021-06-09] MEDS: enoxaparin 60 mg/0.6 mL Syringe 50 MG SUBCUT (17:34)
[2021-06-09 18:34] VITALS: BP 129/52; PULSE 74; RESP 20; O2SAT 93
--- NOTE | 2021-06-09 20:18 | P.HP_ITS ---
Providers/Chief Complaint Primary Care Provider: Mary Johnson NP Chief Complaint: SOB, BACK PAIN, 65% O2 History of Present Illness Deepali Farah is a 76 year old female presented to the hospital for worsening shortness of breath. Patient stating that her symptoms of shortness of breath started about 3 to 4 months ago, symptoms gradually worsened, she did not notice any fever or productive cough, she has been noticing weight loss, loss of appetite lack of energy. Denying night sweats and fever. She has been smoking 4 to 5 cigarettes a day for last 30 years. No previous history of cancer. Lives with her daughter who is 60 years old. Today she presented to the hospital for worsening of her symptoms. She is denying nausea, vomiting, diarrhea or chest pain. She gets easily short of breath after walking a few steps, she also endorsing orthopnea, PND and dyspnea on exertion. No her shortness of breath has gotten worse to the point she is noticing conversational dyspnea. Diagnosis in the ER revealed pulmonary embolism, she was requiring 5 L of oxygen, at baseline she uses 2 L of oxygen at night, she was diagnosed with pulmonary embolism on CTA, MPRESSION: 1. Segmental pulmonary embolus in the right lower lobe. There is no evidence of right heart strain. 2. Patchy ground-glass and airspace opacity at the right base suspicious for pneumonia (possibly aspiration pneumonia). There is debris in the right lower lobe bronchial tree. 3. There is mild peribronchial wall thickening; query viral infection/bronchitis, chronic bronchitis and/or asthma. 4. No thoracic aortic aneurysm. No thoracic aortic dissection. 5. There is calcified atheromatous plaque involving the proximal right subclavian artery with probable moderate to severe underlying stenosis. This is partially obscured by streak artifact. This would predispose to subclavian steal syndrome. 6. There are coarse calcifications at the origin of the left common carotid artery with probable mild narrowing. This is suboptimally assessed. 7. There are coarse calcifications at the origin of the celiac artery with probable underlying stenosis. This is suboptimally assessed. 8. Mediastinal and right hilar lymphadenopathy. 9. Advanced centrilobular emphysema. 10. Numerous enhancing lesions in the liver. Small hypodense lesion in the pancreatic tail. Indeterminate left adrenal nodule. Recommend nonemergent MR abdomen hepatic protocol with and without contrast to better characterize. 11. There is extrahepatic biliary ductal dilatation. Consider ultrasound to further assess. 12. Mild left hydronephrosis. Findings were discussed with the patient and her daughter after her permission, A precarinal lymph node measures 1.2 x 1.3 cm. A right hilar lymph node measures 1.1 x 1.4 cm. Patient is not sure whether she would opt for histopathological diagnosis, chemoradiotherapy, considering multiple organ involvement, her age and muscle mass loss, she would like to think about it overnight and update us in the morning She is vaccinated for COVID-19, Pfizer both doses administered Review of Systems Const: Reports: chills, body aches, change in appetite, change in weight, fatigue and malaise; Denies: fever(s) or night sweats Eyes: Denies: change in vision ENMT: Denies: throat pain Card: Reports: edema, swelling of feet/ankles, dyspnea on exertion and orthopnea; Denies: chest pain Resp: Reports: dyspnea and non-productive cough GI: Denies: abdominal pain : Denies: flank pain Musc: Denies: neck pain Skin/Breast: Denies: rash Neuro: Denies: weakness in extremities or lack of coordination Psych: Denies: anxiety Endo: Denies: polyuria Baldemar/Lymph: Denies: easy bruising All/Imm: Denies: urticaria Medications/Allergies Home Medications Medication Instructions Recorded Confirmed Last Taken Type acetaminophen 500 mg tablet 1,500 mg PO Q4H PRN tab 07/06/19 06/09/21 06/09/21 08:00 History amlodipine 10 mg tablet 10 mg PO DAILY@07/06/19 06/09/21 06/08/21 History gabapentin 300 mg capsule 300 mg PO DAILY@07/06/19 06/09/21 06/08/21 History pantoprazole 40 mg tablet,delayed 40 mg PO DAILY@07/06/19 06/09/21 06/08/21 History release naproxen 500 mg tablet 500 mg PO BID PRN 01/24/20 06/09/21 Unknown History triamterene 37.5 1 tab PO DAILY@01/24/20 06/09/21 06/08/21 History mg-hydrochlorothiazide 25 mg tablet albuterol sulfate [ProAir HFA] 2 puff INHALATION Q4H PRN 11/20/20 06/09/21 Unknown History meclizine 12.5 mg PO PRN 11/20/20 06/09/21 Unknown History mirabegron [Myrbetriq] 25 mg PO DAILY@15 11/20/20 06/09/21 06/08/21 History tizanidine 4 mg tablet 4 mg PO BID PRN #60 tab 04/11/21 06/09/21 Unknown Rx methocarbamol 750 mg tablet 750 mg PO BID #60 tab 05/05/21 06/09/21 Unknown Rx Allergies Allergy/AdvReac Type Severity Reaction Status Date / Time No Known Allergies Allergy Verified 06/09/21 16:20 PFSH Acute PFSH: Medical History (Updated 06/09/21 @ 21:03 by Alexandre Orantes MD) At low risk for fall Dorsalgia Hypertension Left foot drop Long-term current use of opiate analgesic Lumbar disc disease Myalgia, other site Opioid contract exists Other bursitis of hip, left hip PVD (peripheral vascular disease) Smoker Unstable left ankle Surgical History S/P appendectomy 1960 Status post hip hemiarthroplasty LEFT HIP - 05/12/19 Family History Mother Cancer Father Heart disease Brother Heart disease Social History Second hand smoke exposure: No Alcohol intake: never Caregiver/support person: Yes (LIVES WITH DAUGHTER) Lives independently: Yes 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 History of recent travel: No Vitals/I&O/Wt Last Vital Signs Temp 98.3 F 06/09/21 14:40 Pulse 74 06/09/21 18:34 Resp 20 H 06/09/21 18:34 BP 129/52 06/09/21 18:34 Pulse Ox 93 06/09/21 18:34 Weight last 48 hrs Weight 47.627 kg Physical Exam Narrative: EXAM NARRATIVE: elderly female Appears more than stated age Dehydrated Malnourished Emaciated EOMI, PERRLA Awake alert oriented x3 GCS 15 Bilateral breath sounds with mild rhonchi otherwise no active wheezing Mild conversational dyspnea Currently doing well on 4 L nasal cannula No supraclavicular lymphadenopathy Bilateral lower extremity edema with pedal edema Abdomen soft Middleton sign negative Lethargic and fatigued Data : 06/09/21 13:15 06/09/21 13:15 A&P Assessment and plan (1) Acute pulmonary embolism: Status: Acute (2) Leg swelling: Status: Acute (3) Hepatic lesion: Status: Acute (4) Lymphadenopathy: Status: Acute (5) Pancreatic lesion: Status: Acute (6) Carotid arterial disease: Status: Acute (7) Dilation of biliary tract: Status: Acute (8) Spasm of back muscles: Status: Acute (9) Dorsalgia: Status: Chronic (10) Smoker: Status: Chronic (11) Emaciated: Status: Acute Additional A&P Information Acute on chronic hypoxic respiratory failure Precarinal lymphadenopathy with hypodense lesion in liver and pancreatic tail Currently requiring 4 L, at baseline she is 2 L at home Concern for metastatic cancer Patient is not sure whether she will opt for histopathological diagnosis or chemoradiotherapy She has been smoking 4 to 5 cigarettes for last 30 years Emaciated, muscle mass loss Poor functional status Will request echo in the morning, Start her on Zosyn for possible necrotizing pneumonia, add steroids, DuoNeb regimen Start her on Lovenox therapeutic regimen for acute pulmonary embolism Requested lower extremity venous Doppler Start low-dose Lasix She has mild left hydronephrosis however making urine creatinine is normal indeterminate left adrenal nodule 1.3 cm Poor prognosis Regular diet Therapeutic Lovenox Daughter updated Full code Attestations Medical Necessity Statement*: More than 2 midnights anticipated Time Spent in Patient Care: Greater than 35 minutes Coding Level of Care Code Acute Failure Analysis Technician for [facility] Fwd Diagnoses Acute pulmonary embolism I26.99 Leg swelling M79.89 Hepatic lesion K76.9 Lymphadenopathy R59.1 Pancreatic lesion K86.9 Carotid arterial disease I77.9 Dilation of biliary tract K83.8 Spasm of back muscles M62.830 Dorsalgia M54.9 Smoker F17.200 Emaciated R64
--- NOTE | 2021-06-09 20:25 | CTR_ITS ---
PROCEDURE INFORMATION: Exam: CT Abdomen And Pelvis Without Contrast Exam date and time: 06/09/2021 8:25 PM Age: 76 years old Clinical indication: Other: Back pain; Prior surgery; Surgery type: Left hip; Additional info: New cancerous lesions TECHNIQUE: Imaging protocol: Computed tomography of the abdomen and pelvis without contrast. Radiation optimization: All CT scans at this facility use at least one of these dose optimization techniques: automated exposure control; mA and/or kV adjustment per patient size (includes targeted exams where dose is matched to clinical indication); or iterative reconstruction. COMPARISON: CR Hip 2-3v LEFT wwo Pelv* [id number] 05/12/2019 4:52 PM RADIATION DOSE METRICS: Total DLP (mGy-cm): 720.17 FINDINGS: Lungs: Patchy ground-glass changes inferior right lower lobe. Emphysematous lung changes. Liver: Normal. No mass. Gallbladder and bile ducts: Normal. No calcified stones. No ductal dilation. Pancreas: Normal. No ductal dilation. Spleen: Calcified granulomas within the spleen. Negative for splenomegaly or focal splenic mass. Adrenal glands: Normal. No mass. Kidneys and ureters: Normal. No hydronephrosis. Stomach and bowel: Unremarkable. No obstruction. No mucosal thickening. Appendix: No evidence of appendicitis. Intraperitoneal space: Unremarkable. No free air. No significant fluid collection. Vasculature: Diffuse large volume atherosclerosis. Negative for abdominal aortic aneurysm. Lymph nodes: Unremarkable. No enlarged lymph nodes. Urinary bladder: Unremarkable as visualized. Reproductive: Unremarkable as visualized. Bones/joints: Unremarkable alignment of left hip arthroplasty. Negative for periprosthetic fracture. No focal suspicious bone lesions. Unremarkable lumbar spine alignment. Mild superior endplate concavity of L3 without acute fracture lucency identified. Soft tissues: Unremarkable. CT/CT abdomen pelvis wo con [id number] IMPRESSION: 1. Negative for acute abnormality in the abdomen or pelvis. 2. Negative for abdominopelvic malignant findings. Radiation Dose CTDIVOL = (mGy): DLP = 720.17 (mGy-cm)
[2021-06-09 21:30] VITALS: BP 143/59; PULSE 91; RESP 25; O2SAT 93
[2021-06-09 21:43] LABS: Procalcitonin 0.07 ng/mL (0-0.5)
[2021-06-09 22:43] VITALS: BP 126/56; O2SAT 97
[2021-06-10] VITALS (13 sets, daily range): BP systolic 109–153; BP diastolic 56–77; PULSE 73–95; RESP 16–24; TEMP 36.6–37.4; O2SAT 90–98; BMI 16.9
--- NOTE | 2021-06-10 01:24 | USCV_ITS ---
Deepali Farah Age: 76 Gender: F : 1945 Exam Date: 06/10/2021 14:02 Ordering Phys: Alexandre Orantes MD Technologist: JW [place] [facility] [place] PE, COVID BP: 120 / 74 HR: 75 Rhythm: Sinus Technical Quality: Adequate MEASUREMENTS (Male / Female) Normal Values 2D ECHO LV Diastolic Diameter PLAX 4.3 cm 4.2 - 5.9 / 3.9 - 5.3 cm LV Systolic Diameter PLAX 2.9 cm IVS Diastolic Thickness 1.4 cm 0.6 - 1.0 / 0.6 - 0.9 cm IVS Systolic Thickness 2.0 cm LVPW Diastolic Thickness 1.2 cm 0.6 - 1.0 / 0.6 - 0.9 cm LVPW Systolic Thickness 1.3 cm LVOT Diameter 2.0 cm LV Ejection Fraction 2D Teich 61.5 % LV Ejection Fraction MOD 2C 81.8 % LV Ejection Fraction 2C AL 83.5 % LA Diameter 2.5 cm LA Width 3.4 cm LA Height 3.0 cm RA Width 2.5 cm RA Height 3.1 cm Aorta at Sinotubular Diameter 1.9 cm M-MODE Aortic Annulus Diameter 2.4 cm LA Ao Ratio MM 1.0 MV E Point Septal Separation 0.3 cm DOPPLER AV Peak Velocity 144.0 cm/s LVOT Peak Velocity 90.0 cm/s AV Area Cont Eq vti 2.4 cm squared AV Area Cont Eq pk 2.0 cm squared MV Peak Velocity 115.0 cm/s MV Area PHT 3.0 cm squared Mitral E to A Ratio 0.7 MV E' Velocity 65.0 cm/s TR Peak Velocity 292.2 cm/s TR Peak Gradient 34.2 mmHg TR Mean Velocity 256.5 cm/s TR Mean Gradient 28.0 mmHg TR Velocity Time Integral 105.8 cm TV Peak E Velocity 42.0 cm/s Right Atrial Pressure 3.0 mmHg Pulmonary Artery Systolic Pressu 37.2 mmHg PV Peak Velocity 119.0 cm/s RV Acceleration Time 0.1 s RV Ejection Time 0.3 s RV AcT/ET 0.2 FINDINGS Left Ventricle Normal left ventricular size and systolic function, EF 81 %. No regional wall motion abnormalities. Mild left ventricular hypertrophy. Grade I/IV diastolic dysfunction (abnormal relaxation filling pattern), normal to mildly elevated filling pressures. Right Ventricle The right ventricle is normal in size and function. Right Atrium The right atrium is normal in size. Left Atrium The left atrium is normal in size. Mitral Valve Mild mitral annular calcification. Thickened mitral valve. Mild mitral valve regurgitation. Aortic Valve No gross abnormalities noted Tricuspid Valve Mild tricuspid valve regurgitation. Pulmonic Valve No gross abnormalities noted Pericardium Echo-free space posteriorly, suggesting pleural effusion.trivial pericardial effusion. Aorta Normal ascending aorta dimension. CONCLUSIONS Normal left ventricular size and systolic function, EF 81 %. No regional wall motion abnormalities. Mild left ventricular hypertrophy. Grade I/IV diastolic dysfunction (abnormal relaxation filling pattern), normal to mildly elevated filling pressures. Mild mitral annular calcification. Thickened mitral valve. Mild mitral valve regurgitation. Mild tricuspid valve regurgitation. Estimated pulmonary artery peak systolic pressure 37 mmHg Possible moderate left-sided pleural effusion Trivial pericardial effusion No previous study is available for comparison. Dr Kelsea Guevara MD [facility] (Electronically Signed) Final Date: 11 June 2021 17:03 S
[2021-06-10] MEDS: dexamethasone 10 mg/mL INJ 6 MG IVP (02:24)
[2021-06-10] MEDS: piperacillin-tazobactam 3.375 GM in sodium chloride 0.9% (plus) 50 ML IV ×2 (02:26→08:39)
[2021-06-10] MEDS: dexamethasone 4 mg Tablet PO (02:26)
[2021-06-10] MEDS: FUROsemide 20 mg Tablet PO (02:26)
[2021-06-10] MEDS: enoxaparin 60 mg/0.6 mL Syringe 50 MG SUBCUT ×2 (06:36→18:16)
[2021-06-10 06:54] LABS: Basophils # 0.1 10^3/uL (0.0-0.1); Basophils % 0.3 %; Hematocrit 41.4 % (37.0-47.0); Hemoglobin 13.4 g/dL (11.5-15.3); Lymphocytes # 0.4 10^3/uL (0.8-4.8); Lymphocytes % 1.7 %; Mean Corpuscular HGB Conc 32.4 g/dL (30.0-36.0); Mean Corpuscular Hemoglobin 29.5 pg (28.0-34.0); Mean Corpuscular Volume 91.2 fl (81-99); Monocytes # 0.2 10^3/uL (0.2-0.9); Monocytes % 0.7 %; Neutrophils # 22.18 10^3/uL (1.8-7.7); Neutrophils % 96.8 %; Nucleated Red Blood Cells % 0 %; Platelet Count 402 10^3/cmm (130-400); Red Blood Count 4.54 10^6/uL (4.1-5.3); Red Cell Distribution Width 13.9 % (12.1-15.1); White Blood Count 22.9 10^3/uL (4.0-10.0)
[2021-06-10 07:21] LABS: Alanine Aminotransferase 12 U/L (0-33); Albumin Level 4.1 g/dL (3.5-5.2); Alkaline Phosphatase 96 IU/L (35-105); Anion Gap 22.3 (5-19); Aspartate Amino Transferase 23 U/L (0-32); Blood Urea Nitrogen 7 mg/dL (8-23); C Reactive Protein 131.9 mg/L (0.0-4.9); Calcium 8.8 mg/dL (8.5-10.5); Carbon Dioxide 23 mmol/L (22-29); Chloride 95 mmol/L (98-107); Creatinine Clr Calc Pharmacy 44.9811; Globulin 2.5 g/dL (1.3-4.6); Glucose 90 mg/dL (65-115); Magnesium 1.8 mg/dL (1.7-2.3); Osmolality Calculated 282 mOsm/kg (285-295); Potassium 3.3 mmol/L (3.5-5.1); Sodium 137 mmol/L (136-145); Total Bilirubin 0.5 mg/dL (0.15-1.2); Total Protein 6.6 g/dL (6.6-8.7)
[2021-06-10] MEDS: ipratropium-albuterol 3 mL Neb INHALATION (07:45)
[2021-06-10] MEDS: lisinopril 10 mg Tablet 5 MG PO (08:38)
[2021-06-10] MEDS: methocarbamol 750 mg Tablet PO ×2 (08:39→18:16)
[2021-06-10] MEDS: sennosides-docusate Tablet 1 TAB PO (08:39)
[2021-06-10] MEDS: HYDROmorphone 1 mg/mL INJ 1 mL 0.4 MG IVP (10:39)
--- NOTE | 2021-06-10 12:16 | CT_ITS ---
WS: [id number] CT ABDOMEN PELVIS TECHNIQUE: Contrast-enhanced CT of the abdomen and pelvis with coronal and sagittal reformatted image s. Delayed images through the liver obtained. CLINICAL INFORMATION: w contrast study needed COMPARISON: Recent CT studies June 09, 2021 DLP: 816.[address] scans at [facility] use at least one of these dose optimization techniques: automated e xposure control; mA and/or kV adjustment per patient size (includes targeted exams where dose is matc hed to clinical indication); or iterative reconstruction. FINDINGS: Previously described lesions in the liver on the recent CTA are not seen today. This was likely due t o the early arterial phase imaging with patchy heterogeneous enhancement. Diffuse fatty infiltration of the liver seen today with mild intrahepatic biliary ductal dilatation. No suspicious hepatic lesio ns. Normal portal vein and splenic vein. Dilatation of the common bile duct measuring 9 mm the pancre atic head. No pancreatic ductal dilatation. No visualized mass in the pancreas. Patchy infiltrates in the right middle lobe and right lower lobe unchanged. Pleural fluid has improve d with only trace right pleural fluid. Adrenal glands are normal. Normal renal parenchymal enhancemen t. No hydronephrosis. Splenic granulomas. Normal GE junction. Fluid distended gallbladder. No gallbla dder wall thickening. Left GREG degrades images in the pelvis which limits evaluation. Rectosigmoid constipation with mild r ectal distention. No evidence of high-grade small or large bowel obstruction. A few air-fluid levels in normal caliber small bowel. Mild chronic compression superior endplate L1 and L3. CT/CT abdomen pelvis w con* [id number] IMPRESSION: 1. Previously described hepatic lesions not seen today likely due to early art erial phase on the prior CTA. No suspicious hepatic lesions. 2. Mild diffuse fatty infiltration of the liver with mild intrahepatic biliary ductal dilatation slightly more prominent in the left hepatic lobe. Common monica e duct measures 9 mm at the head of the pancreas. No visualized obstructing brian culi. 3. Fluid distended gallbladder without gallbladder wall thickening or perichol ecystic fluid. No visualized cholelithiasis. This can be followed up with ultra sound. 4. Improved infiltrates in the lung bases. 5. Left GREG degrades images in the pelvis. 6. Rectosigmoid constipation. 7. No other acute findings.
[2021-06-10] MEDS: iohexol 300 mg/mL 100 mL Btl IV (13:24)
[2021-06-10 14:26] LABS: Coronavirus Test Green County Not Detected
--- NOTE | 2021-06-10 15:08 | P.PN_ITS ---
Subjective Subjective: Interval history: Patient is complaining of back spasm, requiring 1.5 L at baseline Did discuss findings with Dr. Marin and Dr. Arnold, Dr. Arnold recommended repeating CT abdomen pelvis with contrast for liver lesions, repeat imaging did not show scattered lesions which were seen on previous CT scan, Dr. Baez recommended outpatient follow-up for possible bronchoscopy and histopathological diagnosis, Patient is agreeable for histopathological diagnosis and decide further after the results Afebrile, cultures negative, Vitals/I&O/Wt Last Vital Signs Temp 98.3 F 06/10/21 12:29 Pulse 73 06/10/21 12:29 Resp 18 06/10/21 12:29 BP 113/56 06/10/21 12:29 Pulse Ox 90 06/10/21 12:29 06/10/21 06/10/21 06/10/21 06:59 14:59 22:59 Intake Total 200 / 200 50 / 50 Output Total 700 / 700 350 / 350 Balance -500 / -500 -300 / -300 Weight last 48 hrs Weight 47.627 kg Weight 47.627 kg Physical Exam Narrative: EXAM NARRATIVE: Patient sitting comfortably saturating well 1.5 L Did try to complain of back spasm during my interview EOMI, PERRLA Hemosiderin malnourished dehydrated S1, S2 Abdomen soft Nicotine stained nails noted Thin extremities Pedal edema positive Data : 06/10/21 05:59 06/10/21 05:59 Micro: Microbiology 06/09/21 21:23 MRSA Culture - Final Nose 06/10/21 03:34 Gram Stain - Final Sputum - Expectorated Sputum A&P Assessment and plan (1) Emaciated: Status: Acute (2) Dilation of biliary tract: Status: Acute (3) Carotid arterial disease: Status: Acute (4) Pancreatic lesion: Status: Acute (5) Lymphadenopathy: Status: Acute (6) Hepatic lesion: Status: Acute (7) Leg swelling: Status: Acute (8) Acute pulmonary embolism: Status: Acute (9) Spasm of back muscles: Status: Acute Additional A&P Information Acute hypoxic respiratory failure Concern for pneumonia, precarinal lymphadenopathy, extensive smoking history Currently doing well on 1.5 L nasal cannula Acute pulmonary embolism De-escalate antibiotics to Levaquin Continue steroids Outpatient histopathological work-up, did speak with business project manager Dr. Marin who recommended outpatient monitoring and evaluation Did speak with radiologist regarding CT abdomen pelvis findings, he recommended contrast study, repeat study did not show same hepatic lesion that were evident on previous imaging which was done without contrast, CBD dilation however her liver enzymes are normal she is afebrile she is not icteric, Diet Full code Covid PCR result is pending Attestations Medical Necessity Statement*: Plan to discharge her tomorrow after Covid results Time Spent in Patient Care: 16 - 35 minutes Coding Level of Care Code Acute Fire Management Specialist for [facility] Fwd Diagnoses Emaciated R64 Dilation of biliary tract K83.8 Carotid arterial disease I77.9 Pancreatic lesion K86.9 Lymphadenopathy R59.1 Hepatic lesion K76.9 Leg swelling M79.89 Acute pulmonary embolism I26.99 Spasm of back muscles M62.830
[2021-06-10] MEDS: amlodipine 10 mg Tablet PO (15:10)
[2021-06-10] MEDS: gabapentin 300 mg Capsule PO (15:10)
[2021-06-10] MEDS: pantoprazole DR 40 mg Tablet PO (15:10)
[2021-06-11] VITALS (14 sets, daily range): BP systolic 99–128; BP diastolic 55–76; PULSE 61–95; RESP 14–18; TEMP 36.4–37.1; O2SAT 92–98
[2021-06-11] MEDS: HYDROmorphone 1 mg/mL INJ 1 mL 0.4 MG IVP ×4 (01:03→18:40)
[2021-06-11] MEDS: enoxaparin 60 mg/0.6 mL Syringe 50 MG SUBCUT ×2 (05:42→17:59)
[2021-06-11] MEDS: levoFLOXacin 750 mg Tablet PO (05:42)
[2021-06-11 06:33] LABS: Basophils % 0.1 %; Hemoglobin 12.7 g/dL (11.5-15.3); Lymphocytes # 0.6 10^3/uL (0.8-4.8); Lymphocytes % 4.1 %; Mean Corpuscular HGB Conc 33.4 g/dL (30.0-36.0); Mean Corpuscular Volume 89.6 fl (81-99); Mean Platelet Volume 10.4 fL (7.4-10.4); Monocytes # 0.4 10^3/uL (0.2-0.9); Monocytes % 2.9 %; Neutrophils # 13.42 10^3/uL (1.8-7.7); Neutrophils % 92.4 %; Nucleated Red Blood Cells % 0 %; Platelet Count 381 10^3/cmm (130-400); Red Blood Count 4.24 10^6/uL (4.1-5.3); Red Cell Distribution Width 13.8 % (12.1-15.1); White Blood Count 14.5 10^3/uL (4.0-10.0)
[2021-06-11 07:06] LABS: Blood Urea Nitrogen 18 mg/dL (8-23); Calcium 8.9 mg/dL (8.5-10.5); Carbon Dioxide 29 mmol/L (22-29); Chloride 97 mmol/L (98-107); Creatinine Clr Calc Pharmacy 44.9811; Glucose 143 mg/dL (65-115); Osmolality Calculated 288 mOsm/kg (285-295); Sodium 137 mmol/L (136-145)
[2021-06-11] MEDS: methocarbamol 750 mg Tablet PO ×2 (08:49→17:57)
[2021-06-11] MEDS: lisinopril 10 mg Tablet 5 MG PO (08:49)
--- NOTE | 2021-06-11 10:06 | PC.CHAP ---
Pastoral Care Encounter/Spiritual Assessment Type of Contact [] Declined dock builder visit [] Patient/Family/Request visit [] Outpatient visit [] Follow-up visit [] Physician referral [] Code/Alert [x] Routine visit [] Staff referral [] Actively dying [] Patient sleeping [] Family support [] [] Out of room [] Palliative care [] [x Receiving care in room [] Pre-surgical visit [] Trauma [] Long length of stay [] ICU visit [] Other: Relational/Emotional Strength [] Patient feels connected with others/family/visitors/staff [] Distress [] Loneliness/isolation [] Abandonment Spirituality of Patient [] Person of Evelyn [] Attends Orthodoxy of their Evelyn [] Believes in Prayer [] Reads Bible or Synagogue materials [] There are Spiritual issues to be addressed Cctv Technician Interventions [] Prayer [] Active listening [] Non-anxious presence [] Spiritual/emotional support [] Crisis/trauma care [] Spiritual counseling [] Bereavement support [] Provided bereavement packet [] Provided Bible/devotional materials [] Provided toy/stuffed animal, coloring book to patient or family member [] Provided Communion [] Anointing/Story [] Salvation [] Completed spiritual assessment [] Other: Impact on Illness or Injury [] Angry [] Fearful [] Anxious [] Often cries [] Exhaustion [] Unable to work [] Unable to attend shinto [] Unable to walk/stand [] Unable to read [] Unable to drive [] Unable to eat/drink [] Unable to sleep [] Unable to be with family [] Patient intubated [] Other: Summary Time spent with patient
[2021-06-11] MEDS: ipratropium-albuterol 3 mL Neb INHALATION (12:02)
--- NOTE | 2021-06-11 13:54 | CT_ITS ---
WS: [id number] CT LUMBAR SPINE TECHNIQUE: Noncontrast CT of the lumbar spine with coronal and sagittal reformatted images. CLINICAL INFORMATION: back pain, mus spasms COMPARISON: None. DLP: 775.[address] scans at [facility] use at least one of these dose optimization techniques: automated e xposure control; mA and/or kV adjustment per patient size (includes targeted exams where dose is matc hed to clinical indication); or iterative reconstruction. FINDINGS: Right lower lobe atelectasis partially visualized. Mild lumbar curve. No acute compression. No high-g rade central canal stenosis. L1-L2: Mild annular bulging. Moderate facet arthropathy. Spinal canal and foramen are patent. L2-L3: Minimal annular bulging. Moderate facet arthropathy. Spinal canal and foramen are patent. L3-L4: Mild annular bulging with slight effacement of ventral thecal sac. Impingement on the right ruff barticular recess and traversing L4 nerve root. Mild central canal stenosis. Foramen are patent. Mild facet arthropathy. L4-L5: Annular bulging with slight effacement of ventral thecal sac. Mild central canal stenosis. Sli ght impingement traversing L5 nerve roots bilaterally. Moderate facet arthropathy with ligamentum fla vum hypertrophy. Mild right foraminal narrowing. L5-S1: Mild annular bulging with a shallow right pericentral protrusion. Slight contact of the right S1 nerve root. Foramen are patent. Moderate facet arthropathy. Visualized pelvic bony structures: Normal. Paravertebral soft tissues: Normal. CT/CT lumbar spine wo con* [id number] IMPRESSION: 1. Mild lumbar curve. No acute compression. Slight anterolisthesis L4 on L5. 2. Mild central canal stenosis L2-3, L3-L4 and L4-L5 due to mild disc bulging with facet arthropathy and ligamentum flavum hypertrophy. 3. Shallow right pericentral protrusion L3-4 impinges the right subarticular r ecess and traversing right L4 nerve root 4. Mild impingement traversing L5 nerve roots bilaterally at L4-5. 5. Disc bulge L5-S1 slightly contacts the right S1 nerve root. 6. Moderate facet arthropathy L4-5.
--- NOTE | 2021-06-11 14:58 | PM.PN ---
Subjective Subjective: Interval history: Patient was seen and examined this morning she is complaining of paraspinal muscle spasm and discomfort, she states she is not ready to go home, she did not want to go to any fpc, her gait was unsteady when she worked with physical therapist Vitals/I&O/Wt Last Vital Signs Temp 98.7 F 06/11/21 11:57 Pulse 84 06/11/21 12:14 Resp 16 06/11/21 12:14 BP 128/55 06/11/21 11:57 Pulse Ox 92 06/11/21 12:14 06/10/21 06/11/21 06/11/21 22:59 06:59 14:59 Intake Total 360 / 410 180 / 590 120 / 120 Output Total 100 / 450 150 / 600 Balance 260 / -40 30 / -10 120 / 120 Weight last 48 hrs Weight 47.627 kg Physical Exam Narrative: EXAM NARRATIVE: Patient was not in distress because of paraspinal muscle spasm No active strokelike symptoms Emaciated Muscle mass loss Dehydrated S1, S2 Saturating well on oxygen mask 1.5 L Abdomen soft no signs of peritonitis Lower extremity no signs of swelling In distress Nonfocal neuro exam EOMI: PERRLA Data : 06/11/21 05:40 06/11/21 05:40 Micro: Microbiology 06/10/21 03:34 Gram Stain - Final Sputum - Expectorated Sputum Sputum Culture - Preliminary 06/09/21 21:23 MRSA Culture - Final Nose A&P Assessment and plan (1) Emaciated: Status: Acute (2) Dilation of biliary tract: Status: Acute (3) Carotid arterial disease: Status: Acute (4) Pancreatic lesion: Status: Acute (5) Lymphadenopathy: Status: Acute (6) Hepatic lesion: Status: Acute (7) Leg swelling: Status: Acute (8) Acute pulmonary embolism: Status: Acute (9) Spasm of back muscles: Status: Acute (10) Facet arthropathy, lumbar: Status: Acute Additional A&P Information Acute hypoxia Acute pulmonary embolism Currently requiring 1 L oxygen mask Plan to discharge her on Eliquis Repeat CT abdomen pelvis did not show significant hepatic lesions, earlier hepatic lesions were less reliable because of lack of contrast in the imaging, I have spoken with supervisor conditioning yard who is planning for outpatient evaluation of the patient to see if she would benefit from a biopsy Today she is experiencing lumbar paraspinal muscle spasm she does have lumbar degenerative changes Her gait was unsteady as well, check B12 lumbar CT scan Continue regular diet Continue therapeutic anticoagulating agent Plan to discharge her tomorrow home with home health services Covid PCR is negative For community-acquired pneumonia currently on Levaquin Attestations Medical Necessity Statement*: Discharge tomorrow Time Spent in Patient Care: less than 15 minutes Coding Level of Care Code Acute Supervisor [employer] for g Fwd Diagnoses Emaciated R64 Dilation of biliary tract K83.8 Carotid arterial disease I77.9 Pancreatic lesion K86.9 Lymphadenopathy R59.1 Hepatic lesion K76.9 Leg swelling M79.89 Acute pulmonary embolism I26.99 Spasm of back muscles M62.830 Facet arthropathy, lumbar M47.816
--- NOTE | 2021-06-11 15:01 | USCV_ITS ---
Deepali Farah Age: 76 Gender: F : 1945 Exam Date: 06/11/2021 15:43 Ordering Phys: Alexandre Orantes MD Technologist: KIMBERLI [place] [facility] [place]: ACUTE PULMONARY EMBOLUS. BILATERAL FEET EDEMA. NO HX DVT. HISTORY: ACUTE PULMONARY EMBOLUS. BILATERAL FEET EDEMA. NO HX DVT. CONCLUSIONS No evidence of right lower extremity DVT. No evidence of left lower extremity DVT. Donn Arnold MD (Electronically Signed) Final Date: 12 June 2021 12:10 S
[2021-06-11] MEDS: pantoprazole DR 40 mg Tablet PO (15:13)
[2021-06-11] MEDS: amlodipine 10 mg Tablet PO (15:13)
[2021-06-11 15:49] LABS: Vitamin B12 306 pg/mL (232-1245)
[2021-06-11] MEDS: cyclobenzaprine 10 mg Tablet PO (16:53)
[2021-06-11] MEDS: gabapentin 300 mg Capsule PO (16:53)
[2021-06-12] VITALS (12 sets, daily range): BP systolic 97–103; BP diastolic 48–68; PULSE 69–115; RESP 16–22; TEMP 36.5–36.7; O2SAT 85–95
[2021-06-12] MEDS: HYDROmorphone 1 mg/mL INJ 1 mL 0.4 MG IVP ×3 (01:38→11:00)
[2021-06-12] MEDS: enoxaparin 60 mg/0.6 mL Syringe 50 MG SUBCUT (06:05)
[2021-06-12] MEDS: levoFLOXacin 750 mg Tablet PO (06:05)
[2021-06-12 06:21] LABS: Basophils % 0.1 %; Hematocrit 41.5 % (37.0-47.0); Hemoglobin 13.1 g/dL (11.5-15.3); Lymphocytes # 0.6 10^3/uL (0.8-4.8); Lymphocytes % 4.3 %; Mean Corpuscular HGB Conc 31.6 g/dL (30.0-36.0); Mean Corpuscular Hemoglobin 29.4 pg (28.0-34.0); Mean Corpuscular Volume 93.3 fl (81-99); Mean Platelet Volume 10.1 fL (7.4-10.4); Monocytes # 0.4 10^3/uL (0.2-0.9); Monocytes % 3.1 %; Neutrophils % 91.9 %; Nucleated Red Blood Cells % 0 %; Platelet Count 336 10^3/cmm (130-400); Red Blood Count 4.45 10^6/uL (4.1-5.3); Red Cell Distribution Width 14.1 % (12.1-15.1); White Blood Count 13.7 10^3/uL (4.0-10.0)
[2021-06-12 06:50] LABS: Procalcitonin 0.34 ng/mL (0-0.5)
[2021-06-12] MEDS: sennosides-docusate Tablet 1 TAB PO (07:54)
[2021-06-12] MEDS: methocarbamol 750 mg Tablet PO (07:55)
[2021-06-12] MEDS: lidocaine 5% Patch 1 PATCH TOPICAL (07:55)
[2021-06-12] MEDS: lisinopril 10 mg Tablet 5 MG PO (07:55)
[2021-06-12] MEDS: gabapentin 300 mg Capsule PO (07:55)
--- NOTE | 2021-06-12 08:45 | MR_ITS ---
WS: [id number] MRI LUMBAR SPINE NONCONTRAST TECHNIQUE: Sagittal T1, T2 and STIR imaging. Axial T1 and T2 imaging. CLINICAL INFORMATION: Nerve impingement l4 COMPARISON: CT June 11, 2021 FINDINGS: Mild lumbar curve. No acute compression. No high-grade central canal stenosis. L1-L2: Mild annular bulging. Spinal canal and foramen are patent. L2-L3: Mild disc bulging with slight impingement on the subarticular recess bilaterally. Impingement on the traversing bilateral L3 nerve roots. Foramen are patent. Mild facet arthropathy. L3-L4: Mild central canal stenosis. Mild annular bulging and osteophytic ridging. Mild central canal stenosis. Impingement traversing right L4 nerve root in the subarticular recess. L4-L5: Mild annular bulging with mild central canal stenosis. Impingement traversing L5 nerve roots b ilaterally in the subarticular recess. Mild to moderate right foraminal narrowing. Slight contact of the far exiting right L4 nerve root. Left foramen is patent. Moderate facet arthropathy. L5-S1: Mild annular bulging with slight contact of the traversing S1 nerve roots bilaterally. Spinal canal is patent. Mild to moderate facet arthropathy. Foramen are patent. Visualized pelvic bony structures: Normal. Paravertebral soft tissues: Normal. MR/MR lumbar spine wo con* [id number] IMPRESSION: 1. Mild lumbar curve. No acute compression. No high-grade central canal stenos is. 2. Mild central canal stenosis L2-L3 L3-L4 and L4-L5. 3. Disc bulging L2-3 with impingement on the subarticular recess and traversin g L3 nerve roots bilaterally. 4. Disc bulging L3-4 with impingement traversing right L4 nerve root in the ruff barticular recess. 5. Mild annular bulging L4-5 slightly impinges traversing L5 nerve roots bilat erally. 6. Mild to moderate right L4-5 foraminal narrowing with slight contact of the exiting right L4 nerve root laterally. 7. Mild to moderate facet arthropathy L3-L4 and L4-L5.
[2021-06-12] MEDS: ipratropium-albuterol 3 mL Neb INHALATION ×2 (10:28→15:18)
--- NOTE | 2021-06-12 13:41 | P.DS_ITS ---
Discharge Providers Date of Admission: 06/10/21 00:50 Date of Discharge: June 12, 2021 Attending Provider at Admission: Erica Ahumada MD Attending Provider at Discharge: Alexandre Orantes MD Primary Care Provider: Mary Johnson NP Diagnoses at Discharge Discharge Diagnosis (1) Emaciated: Status: Acute (2) Dilation of biliary tract: Status: Acute (3) Carotid arterial disease: Status: Acute (4) Pancreatic lesion: Status: Acute (5) Lymphadenopathy: Status: Acute (6) Hepatic lesion: Status: Acute (7) Leg swelling: Status: Acute (8) Acute pulmonary embolism: Status: Acute (9) Spasm of back muscles: Status: Acute (10) Facet arthropathy, lumbar: Status: Acute Reason for Visit Reason for Visit: SOB, BACK PAIN, 65% O2 Hospital Course Hospital Course History of Present Illness Deepali Farah is a 76 year old female presented to the hospital for worsening shortness of breath. Patient stating that her symptoms of shortness of breath started about 3 to 4 months ago, symptoms gradually worsened, she did not notice any fever or productive cough, she has been noticing weight loss, loss of appetite lack of energy. Denying night sweats and fever. She has been smoking 4 to 5 cigarettes a day for last 30 years. No previous history of cancer. Lives with her daughter who is 60 years old. Today she presented to the hospital for worsening of her symptoms. She is denying nausea, vomiting, diarrhea or chest pain. She gets easily short of breath after walking a few steps, she also endorsing orthopnea, PND and dyspnea on exertion. No her shortness of breath has gotten worse to the point she is noticing conversational dyspnea. Diagnosis in the ER revealed pulmonary embolism, she was requiring 5 L of oxygen, at baseline she uses 2 L of oxygen at night, she was diagnosed with pulmonary embolism on CTA, MPRESSION: 1. Segmental pulmonary embolus in the right lower lobe. There is no evidence of right heart strain. 2. Patchy ground-glass and airspace opacity at the right base suspicious for pneumonia (possibly aspiration pneumonia). There is debris in the right lower lobe bronchial tree. 3. There is mild peribronchial wall thickening; query viral infection/bronchitis, chronic bronchitis and/or asthma. 4. No thoracic aortic aneurysm. No thoracic aortic dissection. 5. There is calcified atheromatous plaque involving the proximal right subclavian artery with probable moderate to severe underlying stenosis. This is partially obscured by streak artifact. This would predispose to subclavian steal syndrome. 6. There are coarse calcifications at the origin of the left common carotid artery with probable mild narrowing. This is suboptimally assessed. 7. There are coarse calcifications at the origin of the celiac artery with probable underlying stenosis. This is suboptimally assessed. 8. Mediastinal and right hilar lymphadenopathy. 9. Advanced centrilobular emphysema. 10. Numerous enhancing lesions in the liver. Small hypodense lesion in the pancreatic tail. Indeterminate left adrenal nodule. Recommend nonemergent MR abdomen hepatic protocol with and without contrast to better characterize. 11. There is extrahepatic biliary ductal dilatation. Consider ultrasound to further assess. 12. Mild left hydronephrosis. Findings were discussed with the patient and her daughter after her permission, A precarinal lymph node measures 1.2 x 1.3 cm. A right hilar lymph node measures 1.1 x 1.4 cm. Patient is not sure whether she would opt for histopathological diagnosis, chemoradiotherapy, considering multiple organ involvement, her age and muscle mass loss, she would like to think about it overnight and update us in the morning Hospital course Patient was admitted for evaluation of hypoxic respiratory failure, she was diagnosed with acute pulmonary embolism, precarinal lymphadenopathy, CT abdomen pelvis did show hypodense lesion on the day of admission, this imaging was done without contrast however after discussing my concerns and findings with the radiologist he recommended repeating imaging with contrast, no such hepatic lesions were identified on repeat imaging, I also discussed this case with tassel snipper Dr. Marin who recommended outpatient evaluation for possible biopsy. Patient was complaining of paraspinal muscle spasm and back pain for which lumbar spine and MRI was requested which did not show spinal cord compression however does show significant disc bulging and radiculopathy. I discussed these findings with Dr. oClon who recommended analgesics, opioids and outpatient evaluation. Patient did work with physical therapist, her activities were limited secondary to back pain however she does not want to go to nursing h ome, she will be discharged home with home health services with follow-up appointments with Dr. Colon and Dr. Marin. At this point we are not sure whether lymphadenopathy is related to underlying malignancy or infectious process. Physical Exam Narrative: EXAM NARRATIVE: Patient was not in distress because of paraspinal muscle spasm today No active strokelike symptoms Emaciated Muscle mass loss Dehydrated S1, S2 Saturating well on oxygen mask 1.5 L Abdomen soft no signs of peritonitis Lower extremity no signs of swelling In distress Nonfocal neuro Does not have typical cauda equina syndrome Discharge Data Data Completed and Pending: Completed Studies During Hospitalization Category Date Time Status CT abdomen pelvis w con* [id number] Stat Cat Scan 06/10/21 12:[address] abdomen pelvis wo con [id number] Rout ine Cat Scan 06/09/21 20:[address] angio chest [id number] Stat Cat Scan 06/09/21 15:[address] lumbar spine w o con* [id number] Stat Cat Scan 06/11/21 13:54 Completed XR chest 1V kevin ble [id number] Stat Exams 06/09/21 14:59 Completed MR lumbar spine w o con* [id number] Stat MRI 06/12/21 08:45 [place] [id number] Routin e Ultrasound 06/11/21 15:01 Completed CV. echo complete * [id number] Routine Ultrasound 06/10/21 01:24 Completed Labs from last 24 hours 06/12/21 06/12/21 06/11/21 05:41 05:41 05:40 WBC 13.7 H RBC 4.45 Hgb 13.1 Hct 41.5 MCV 93.3 MCH 29.4 MCHC 31.6 D RDW 14.1 Plt Count 336 MPV 10.1 Neut % (Auto) 91.9 Lymph % (Auto) 4.3 Spencer % (Auto) 3.1 Eos % (Auto) 0.0 Baso % (Auto) 0.1 Neut # (Auto) 12.60 H Lymph # (Auto) 0.6 L Spencer # (Auto) 0.4 Eos # (Auto) 0.0 Baso # (Auto) 0.0 Nucleated RBC % (a uto) 0 Nucleated RBCs # 0.0 Vitamin B12 306 Procalcitonin 0.34 Vitals: Last Vital Signs Temp 97.7 F 06/12/21 11:17 Pulse 69 06/12/21 11:17 Resp 17 06/12/21 11:17 BP 102/55 06/12/21 11:17 Pulse Ox 93 06/12/21 11:17 Discharge Plan Discharge Patient Disposition: Home Condition: Stable Prescriptions: New cyclobenzaprine 10 mg Tablet 10 mg PO TID PRN (Reason: Muscle Spasms) Qty: 90 RF: 1 Stool Softener-Laxative 8.6-50 mg Tablet 1 tab PO DAILY Qty: 60 RF: 1 amlodipine 10 mg Tablet 10 mg PO DAILY@15 Qty: 30 RF: 3 lisinopril 10 mg Tablet 5 mg PO DAILY Qty: 30 RF: 3 levofloxacin 750 mg Tablet 750 mg PO DAILY@0600 Qty: 10 RF: 0 oxycodone 5 mg capsule 5 mg PO DAILY PRN (Reason: pain) Qty: 20 RF: 0 Eliquis 5 mg tablet 5 mg PO BID Qty: 90 RF: 3 Continued amlodipine 10 mg tablet 10 mg PO DAILY@15 RF: 0 gabapentin 300 mg capsule 300 mg PO DAILY@15 RF: 0 pantoprazole 40 mg tablet,delayed release (DR/EC) 40 mg PO DAILY@15 RF: 0 tizanidine 4 mg tablet 4 mg PO BID PRN (Reason: muscle spasticity) Qty: 60 RF: 0 methocarbamol 750 mg tablet 750 mg PO BID Qty: 60 RF: 2 albuterol sulfate [ProAir HFA] 90 mcg/actuation HFA aerosol inhaler 2 puff INHALATION Q4H PRN (Reason: Wheezing) RF: 0 Myrbetriq 25 mg tablet extended release 24 hr 25 mg PO DAILY@15 RF: 0 Discontinued naproxen 500 mg tablet 500 mg PO BID PRN (Reason: Pain) RF: 0 triamterene-hydrochlorothiazid 37.5-25 mg tablet 1 tab PO DAILY@15 RF: 0 acetaminophen [Tylenol Extra Strength] 500 mg tablet 1,500 mg PO Q4H PRN (Reason: Pain) RF: 0 meclizine 12.5 mg Tablet 12.5 mg PO PRN RF: 0 Discharge Orders: Discharge Order (Routine); Ordered 06/12/21 Ordered By: Alexandre Orantes Referrals: [facility] [place] [facility] ([facility]) [Outside] (You have been accepted with [facility], they will be contacting you about a time to admit you to their services. If you have any questions or concerns please call them at [phone].) Joe Colon DO [Physician] - 06/24/21 2:15 pm DatarSammy MD [Physician] - 06/26/21 1:15 pm (Precarinal Lymphadenopathy) Discharge Diet: Cardiac Discharge Activity: Increase activity as tolerated Patient Instructions: Lisinopril (By mouth), Oxycodone/Acetaminophen (By mouth), Cyclobenzaprine (By mouth), Amlodipine (By mouth), Levofloxacin (By mouth), Apixaban (By mouth), Pulmonary Embolism (DC), Lymphadenopathy (GEN), Opioid Safety Discharge Attestations Time Spent in Discharge Care*: less than 30 min Quality Metrics Clinical Quality Measures During this hospital stay, did patient experience: None Coding Level of Care Code Acute Chg FW DC note Diagnoses Emaciated R64 Dilation of biliary tract K83.8 Carotid arterial disease I77.9 Pancreatic lesion K86.9 Lymphadenopathy R59.1 Hepatic lesion K76.9 Leg swelling M79.89 Acute pulmonary embolism I26.99 Spasm of back muscles M62.830 Facet arthropathy, lumbar M47.816
== END 2021-06-12 16:13 | disposition home health service (06) | DRG 175 ==
LOC: ER 14:44 → MEDSURG 06-10 00:50
PROVIDERS: Admitting Provider Student in an Organized Health Care Education/Training Program; Emergency Provider Family Medicine; PCP Nurse Practitioner; Visit Provider Internal Medicine
DX: I26.93 Single subsegmental thrombotic pulmonary embolism without acute cor pulmonale (principal); J18.9 Pneumonia, unspecified organism; J96.21 Acute and chronic respiratory failure with hypoxia; Z68.1 Body mass index [BMI] 19.9 or less, adult; Z99.81 Dependence on supplemental oxygen; F17.210 Nicotine dependence, cigarettes, uncomplicated; G89.29 Other chronic pain; Z86.711 Personal history of pulmonary embolism; I10 Essential (primary) hypertension; Z96.642 Presence of left artificial hip joint; K86.9 Disease of pancreas, unspecified; R91.8 Other nonspecific abnormal finding of lung field; R62.7 Adult failure to thrive; J43.2 Centrilobular emphysema; R59.0 Localized enlarged lymph nodes; M62.830 Muscle spasm of back; Z79.51 Long term (current) use of inhaled steroids; M12.88 Other specific arthropathies, not elsewhere classified, other specified site
CPT/HCPCS: 36415; 36600; 71045; 71275; 72131; 72148; 74176; 74177; 80048; 80051; 80053; 82330; 82607; 82805; 83735; 84145; 85025; 86140; 87070; 87205; 87426; 87635; 87641; 93306; 93970; 94640; 94664; 96365; 96372; 97161; 97530; 99285; J1100; J1170; J1650; J1956; J2543; J2920; J8540; Q9967

== ENCOUNTER → 2021-06-24 14:24 | Outpatient (BNVA) | payer MEDICARE, MEDICAID, SELFPAY | PROVIDERS: PCP Nurse Practitioner; Visit Provider Orthopaedic Surgery | DX: M54.9 Dorsalgia, unspecified (principal) | CPT/HCPCS: 72110 ==

== ENCOUNTER 2021-06-27 05:41 | Observation (INO) | payer MEDICARE, MEDICAID, SELFPAY ==
[2021-06-27] VITALS (18 sets, daily range): BP systolic 66–134; BP diastolic 38–57; PULSE 78–96; RESP 15–23; TEMP 36.6; O2SAT 9–100; BMI 16.9; BMI 17.6
[2021-06-27 05:46] LABS: Glucose Point of Care 232 mg/dL (70-110)
--- NOTE | 2021-06-27 05:48 | XRR_ITS ---
PROCEDURE INFORMATION: Exam: XR Chest Exam date and time: 06/27/2021 5:48 AM Age: 76 years old Clinical indication: Shortness of breath; Patient HX: SOB for years, HX of copd; Additional info: Abd pain TECHNIQUE: Imaging protocol: XR of the chest. Views: 1 view. COMPARISON: CR XR chest 1V portable [id number] 06/09/2021 3:06 PM FINDINGS: Lungs: Bilateral emphysema. Prior pulmonary granulomatous disease. Minimal bibasilar airspace disease for which atelectasis is favored. Pleural spaces: No pleural effusion or pneumothorax. Heart/Mediastinum: The cardiac silhouette is not enlarged. The mediastinal contours are normal. Vasculature: The aorta is atherosclerotic. Bones/joints: No acute osseous abnormality. XR/XR chest 1V portable [id number] IMPRESSION: 1. Emphysema. 2. Favor bibasilar atelectasis.
--- NOTE | 2021-06-27 05:49 | ECG_ITS ---
[facility] Test Date: 2021-06-27 Pat Name: Deepali Farah Department: Room: Gender: Female Night Monitor: : 1945 Requested By: Oscar Donahue Order Number: [id number] Isadora MD: Ele Castro M.D. Measurements Intervals [place] Rate: 90 P: 83 [place]: 138 QRS: 73 QRSD: 90 T: 89 QT: 360 QTc: 441 Interpretive Statements SINUS RHYTHM POSSIBLE LEFT ATRIAL ENLARGEMENT [-0.1mV P-WAVE IN V1/V2] LOW QRS VOLTAGE IN EXTREMITY LEADS [QRS DEFLECTION < 0.5 mV IN LIMB LEADS] MODERATE ST DEPRESSION [0.05+ mV ST DEPRESSION] Compared to ECG 06/18/2019 19:20:25 Low QRS voltage now present ST (T wave) deviation still present Electronically Signed On 06-28-2021 7:36:11 SMOKE JUMPER SUPERVISOR by Ele Castro M.D. [id number]
[2021-06-27] MEDS: sodium chloride 0.9% 1,000 ML 999 ML IV ×3 (06:00→07:31)
[2021-06-27 06:04] LABS: Basophils % 0.5 %; Eosinophils # 0.1 10^3/uL (0.0-0.8); Eosinophils % 2.4 %; Hematocrit 42.3 % (37.0-47.0); Hemoglobin 13.2 g/dL (11.5-15.3); Lymphocytes # 1.8 10^3/uL (0.8-4.8); Lymphocytes % 30.6 %; Mean Corpuscular HGB Conc 31.2 g/dL (30.0-36.0); Mean Corpuscular Hemoglobin 28.9 pg (28.0-34.0); Mean Corpuscular Volume 92.8 fl (81-99); Mean Platelet Volume 10.9 fL (7.4-10.4); Monocytes # 0.4 10^3/uL (0.2-0.9); Monocytes % 6.8 %; Neutrophils # 3.45 10^3/uL (1.8-7.7); Nucleated Red Blood Cells % 0 %; Platelet Count 361 10^3/cmm (130-400); Red Blood Count 4.56 10^6/uL (4.1-5.3); Red Cell Distribution Width 14.4 % (12.1-15.1); White Blood Count 5.9 10^3/uL (4.0-10.0)
[2021-06-27 06:23] LABS: INR 1.05 (0.8-1.2)
[2021-06-27 06:30] LABS: Add Urine Microscopic? NO; Charge for UA Resulting for Rev
[2021-06-27 06:33] LABS: Alanine Aminotransferase 15 U/L (0-33); Albumin Level 3.7 g/dL (3.5-5.2); Aspartate Amino Transferase 20 U/L (0-32); Chloride 99 mmol/L (98-107); Globulin 2.6 g/dL (1.3-4.6)
[2021-06-27 06:37] LABS: Lactic Sepsis W/Reflex 1.7 mmol/L (0.5-2.2)
--- NOTE | 2021-06-27 06:43 | W.ED.ABDPA2 ---
HPI - Abdominal Pain General: Chief Complaint: Abdominal Pain Stated Complaint: dizzy ab pain Time Seen by Provider: 06/27/21 05:48 History of Present Illness: HPI narrative: 76-year-old female presents to the emergency room with complaint of abdominal discomfort.patient was found on the floor next to her bedside commode by the daughter this morning and was hypotensive. She is having abdominal pain and could not get herself up and EMS was called. Patient was hospitalized earlier this month and was found to have pulmonary emboli there is a questions of hepatic lesions but on repeat scan there was none. She was found to be cachectic had dilation of her biliary tract and had been losing weight. She comes in today really with continuing similar problems most which is abdominal pain. She has been nauseous not had any vomiting or diarrhea no hematochezia or melena denies any dysuria urgency or frequency. Patient was given push dose epi x 3 by EMS in route. MD elicited complaint: abdominal pain Onset (ago): hour(s) Pain Consistency: constant Location: Epigastric and LUQ Severity: mild Quality: cramping Radiation: none Migration to: no migration Exacerbating factors: nothing Relieving factors: nothing Associated Symptoms: Reports anorexia, bloating, GI cramping and nausea; Denies belching, change in bowel habits, change in stool character, chills, coffee ground emesis, constipation, diarrhea, dyspepsia, dysuria, excessive flatus, fever(s), heartburn, hematochezia, hematuria, hematemesis, fecal incontinence, loose stools, melena, poor appetite and syncope Review of Systems Const: Denies: fever(s) or chills ENMT: Denies: throat pain, ear or mastoid pain, nasal discharge or nasal congestion Card: Denies: syncope Resp: Denies: dyspnea, productive cough or non-productive cough GI: Reports: nausea, bloating and GI cramping; Denies: hematemesis, coffee ground emesis, heartburn, diarrhea, constipation, belching, excessive flatus, fecal incontinence, change in bowel habits, change in stool character, hematochezia or melena : Denies: dysuria or hematuria Skin/Breast: Denies: rash or pruritus PFSH ED PFSH: Medical History (Updated 06/30/21 @ 16:53 by Manjinder L Horstman, DO) Acute pulmonary embolism At low risk for fall Carotid arterial disease Dorsalgia Facet arthropathy, lumbar Hepatic lesion Hypertension Left foot drop Leg swelling Long-term current use of opiate analgesic Lumbar disc disease Lymphadenopathy Myalgia, other site Opioid contract exists Other bursitis of hip, left hip Pancreatic lesion PVD (peripheral vascular disease) Smoker Spasm of back muscles Unstable left ankle Surgical History S/P appendectomy 1960 Status post hip hemiarthroplasty LEFT HIP - 05/12/19 Family History Mother Cancer Father Heart disease Brother Heart disease Social History Second hand smoke exposure: No Alcohol intake: never Caregiver/support person: Yes (LIVES WITH DAUGHTER) Lives independently: Yes 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 History of recent travel: No Physical Exam Const: COMMON NORMALS: no acute distress GENERAL APPEARANCE: cooperative and comfortable ORIENTATION/CONSCIOUSNESS: Yes awake, Yes oriented to person, Yes oriented to place and Yes oriented to time HENMT: COMMON NORMALS: normocephalic, atraumatic and hearing grossly normal bilaterally HEAD & SCALP: normocephalic and atraumatic Neck/C-Spine: COMMON NORMALS: no JVD Resp: COMMON NORMALS: normal respiratory effort, No retractions, No use of accessory muscles and clear to auscultation bilaterally AUSCULTATION: clear to auscultation bilaterally Cardio: COMMON NORMALS: no JVD, regular rate, regular rhythm and No murmurs present (Cardio) RATE: regular rate RHYTHM: regular rhythm GI: COMMON NORMALS: Soft to palpation and No hepatosplenomegaly present AUSCULTATION: Yes normoactive bowel sounds PALPATION: Yes Soft to palpation, No Tenderness to palpation present (GI), No Guarding due to palpation present (GI) and Yes No hepatosplenomegaly present Extremity: COMMON NORMALS: normal to inspection, capillary refill normal, no clubbing, cyanosis or edema, no calf tenderness and no pedal edema Neuro: SENSORIUM/ORIENTATION: Yes oriented to person, Yes oriented to place and Yes oriented to time Skin: COMMON NORMALS: no rashes or lesions noted GENERAL SKIN EXAM: no rashes or lesions noted Course Vital Signs: Vital signs: Vital Signs Temperature 97.4 F L 07/01/21 03:27 Pulse Rate 86 07/01/21 03:27 Respiratory Rate 17 07/01/21 03:51 Blood Pressure 153/76 07/01/21 03:27 Pulse Oximetry 93 07/01/21 03:27 MDM - Abdominal Pain MDM Narrative: Medical decision making narrative: Colitis with hypercapnia and. Patient is poorly responsive. She is not able to manage her own ADLs at this point she is also significantly hypertensive on arrival. Discussed with Dr. Bird will admit orders written Lab Data: Labs: Lab Results 06/27/21 06/27/21 06/27/21 04:45 04:45 04:45 WBC 5.9 10^3/uL 10^3/ uL (4.0-10.0) RBC 4.56 10^6/uL 10^6 /uL (4.1-5.3) Hgb 13.2 g/dL g/dL (11.5-15.3) Hct 42.3 % % (37.0-47.0) MCV 92.8 fl fl (81-99) MCH 28.9 pg pg (28.0-34.0) MCHC 31.2 g/dL g/dL (30.0-36.0) RDW 14.4 % % (12.1-15.1) Plt Count 361 10^3/cmm 10^3 /cmm (130-400) MPV 10.9 fL H fL (7.4-10.4) Neut % (Auto) 59.0 % % Lymph % (Auto) 30.6 % % [place] % (Auto) 6.8 % % Eos % (Auto) 2.4 % % Baso % (Auto) 0.5 % % Neut # (Auto) 3.45 10^3/uL 10^3 /uL (1.8-7.7) Lymph # (Auto) 1.8 10^3/uL 10^3/ uL (0.8-4.8) [place] # (Auto) 0.4 10^3/uL 10^3/ uL (0.2-0.9) Eos # (Auto) 0.1 10^3/uL 10^3/ uL (0.0-0.8) Baso # (Auto) 0.0 10^3/uL 10^3/ uL (0.0-0.1) Nucleated RBC % (a uto) 0 % % Nucleated RBCs # 0.0 /100WBC /100W BC PT 14.00 SECONDS SEC ONDS (12.1-14.9) INR 1.05 (0.8-1.2) Specimen Type Sample Site ABG pH ABG pCO2 ABG pO2 ABG HCO3 ABG O2 Saturation ABG Base Excess Wily Test A-a O2 Gradient Hematocrit Hgb O2 Saturation Carboxyhemoglobin Methemoglobin Total Hemoglobin Ionized Calcium O2 Delivery Device O2 Liters/Min FiO2 Business Technology Architect ID Sodium 136 mmol/L mmol/L (136-145) Potassium 4.3 mmol/L mmol/L (3.5-5.1) Chloride 99 mmol/L mmol/L (98-107) Carbon Dioxide 20 mmol/L L mmol/ L (22-29) Anion Gap 21.3 H (5-19) BUN 9 mg/dL mg/dL (8-23) Creatinine 0.7 mg/dL mg/dL (0.5-0.9) GFR Calculation Not Reportable Glucose 126 mg/dL H mg/dL (65-115) POC Glucose Calculated Osmolal ity 282 mOsm/kg L mOs m/kg (285-295) Lactic Acid Calcium 9.1 mg/dL mg/dL (8.5-10.5) Total Bilirubin 0.2 mg/dL mg/dL (0.15-1.2) AST 20 U/L U/L (0-32) ALT 15 U/L U/L (0-33) Alkaline Phosphata se 128 IU/L H IU/L (35-105) Creatine Kinase Total Protein 6.2 g/dL L g/dL (6.6-8.7) Albumin 3.7 g/dL g/dL (3.5-5.2) Globulin 2.6 g/dL g/dL (1.3-4.6) Lipase 40 U/L U/L (13-60) Urine Color Urine Appearance Urine pH Ur Specific Gravit y Urine Protein Urine Glucose (UA) Urine Ketones Urine Blood Urine Nitrate Urine Bilirubin Urine Urobilinogen Ur Leukocyte Ivana ase 06/27/21 06/27/21 06/27/21 04:45 05:44 06:13 WBC RBC Hgb Hct MCV MCH MCHC RDW Plt Count MPV Neut % (Auto) Lymph % (Auto) [place] % (Auto) Eos % (Auto) Baso % (Auto) Neut # (Auto) Lymph # (Auto) [place] # (Auto) Eos # (Auto) Baso # (Auto) Nucleated RBC % (a uto) Nucleated RBCs # PT INR Specimen Type Sample Site ABG pH ABG pCO2 ABG pO2 ABG HCO3 ABG O2 Saturation ABG Base Excess Wily Test A-a O2 Gradient Hematocrit Hgb O2 Saturation Carboxyhemoglobin Methemoglobin Total Hemoglobin Ionized Calcium O2 Delivery Device O2 Liters/Min FiO2 Business Technology Architect ID Sodium Potassium Chloride Carbon Dioxide Anion Gap BUN Creatinine GFR Calculation Glucose POC Glucose 232 mg/dL H mg/dL (70-110) Calculated Osmolal ity Lactic Acid 1.7 mmol/L mmol/L (0.5-2.2) Calcium Total Bilirubin AST ALT Alkaline Phosphata se Creatine Kinase 96 U/L U/L (26-192) Total Protein Albumin Globulin Lipase Urine Color Urine Appearance Urine pH Ur Specific Gravit y Urine Protein Urine Glucose (UA) Urine Ketones Urine Blood Urine Nitrate Urine Bilirubin Urine Urobilinogen Ur Leukocyte Ivana ase 06/27/21 06/27/21 06:13 08:31 WBC RBC Hgb Hct MCV MCH MCHC RDW Plt Count MPV Neut % (Auto) Lymph % (Auto) [place] % (Auto) Eos % (Auto) Baso % (Auto) Neut # (Auto) Lymph # (Auto) [place] # (Auto) Eos # (Auto) Baso # (Auto) Nucleated RBC % (a uto) Nucleated RBCs # PT INR Specimen Type Arterial Sample Site Brachial, left ABG pH 7.29 L (7.35-7.45) ABG pCO2 46.3 mmHg H mmHg (35-45) ABG pO2 77.0 mmHg L mmHg (80.0-100.0) ABG HCO3 22.1 mmol/L mmol/ L (22-26) ABG O2 Saturation 94.2 ABG Base Excess -4.5 mmol/L L mmo l/L (-2.0-2.0) Wily Test Pos A-a O2 Gradient 8.6 mmHg mmHg (5-10) Hematocrit 34.5 % L % (37-47) Hgb O2 Saturation 92.6 % L % (95-100) Carboxyhemoglobin 0.7 %THgb %THgb (0.4-20.1) Methemoglobin 1.0 % % (0.4-1.5) Total Hemoglobin 11.3 g/dL L g/dL (12-16) Ionized Calcium 1.1 mmol/L mmol/L (1.1-1.4) O2 Delivery Device Nc O2 Liters/Min 2.0 % % FiO2 28.0 % % Business Technology Architect ID Cak Sodium 138.0 mmol/L mmol /L (131-143) Potassium 3.5 mmol/L mmol/L (3.5-5.0) Chloride Carbon Dioxide Anion Gap BUN Creatinine GFR Calculation Glucose 124.0 mg/dL H mg/ dL (70-115) POC Glucose Calculated Osmolal ity Lactic Acid Calcium Total Bilirubin AST ALT Alkaline Phosphata se Creatine Kinase Total Protein Albumin Globulin Lipase Urine Color Straw (Yellow) Urine Appearance Clear (CLEAR) Urine pH 7 (5-7) Ur Specific Gravit y 1.005 (1.005-1.030) Urine Protein Neg (Negative) Urine Glucose (UA) Norm (Normal) Urine Ketones Negative (Negative) Urine Blood Neg (Negative) Urine Nitrate Negative (Negative) Urine Bilirubin Neg (Negative) Urine Urobilinogen Norm mg/dL mg/dL (Negative) Ur Leukocyte Ivana ase Negative (Negative) Discharge Plan Discharge Patient Disposition: Admitted As Inpatient Admit Provider: Abdiel Olivo Clinical Impression: Colitis, Acute and chronic respiratory failure with hypercapnia, Pulmonary embolism, COPD (chronic obstructive pulmonary disease), Adult failure to thrive Condition: Stable Coding Level of Care Code ED Inspector Optical Instrument for Chg Fwd Exam Comprehensive
[2021-06-27 06:48] LABS: Bilirubin Urine Neg (Negative); Blood Urine Neg (Negative); Glucose Urine UA Norm (Normal); Ketones Urine Negative (Negative); Leukocyte Esterase Urine Negative (Negative); Nitrate Urine Negative (Negative); Protein Urine Neg (Negative); Specific Gravity, Urine 1.005 (1.005-1.030); Urine Appearance Clear (CLEAR); Urine Color Straw (Yellow); Urobilinogen Urine Norm (Negative); pH Urine 7 (5-7)
[2021-06-27 07:02] LABS: Alkaline Phosphatase 128 IU/L (35-105); Anion Gap 21.3 (5-19); Blood Urea Nitrogen 9 mg/dL (8-23); Calcium 9.1 mg/dL (8.5-10.5); Carbon Dioxide 20 mmol/L (22-29); Creatinine Clr Calc Pharmacy 44.9811; Glucose 126 mg/dL (65-115); Lipase 40 U/L (13-60); Osmolality Calculated 282 mOsm/kg (285-295); Potassium 4.3 mmol/L (3.5-5.1); Sodium 136 mmol/L (136-145); Total Bilirubin 0.2 mg/dL (0.15-1.2); Total Protein 6.2 g/dL (6.6-8.7)
--- NOTE | 2021-06-27 07:17 | PC.NURSE ---
Received report assumed care. No changes noted from report. Pt cleaned from large BM. Informed Dr Reyes of low BP and Map of 56
[2021-06-27 07:47] LABS: Creatine Phosphokinase 96 U/L (26-192)
--- NOTE | 2021-06-27 08:11 | PC.NURSE ---
Blood pressure improved with Fluids
[2021-06-27 08:42] LABS: ABG PCO2 46.3 mmHg (35-45); ABG PH Result 7.29 (7.35-7.45); Alveolar-Arterial Oxygen Gradi 8.6 mmHg (5-10); Arterial Blood Gas Hematocrit 34.5 % (37-47); Base Excess ABG -4.5 mmol/L (-2.0-2.0); Blood Gas Allen Test Pos; Blood Gas Operator Identificat CAK; Blood Gas Sample Site Brachial, left; Blood Gas Sample Type Arterial; Carboxyhemoglobin 0.7 %THgb (0.4-20.1); HCO3 ABG 22.1 mmol/L (22-26); HGB O2 Sat 92.6 % (95-100); Ionized Calcium Level - ABG 1.1 mmol/L (1.1-1.4); Oxygen Device NC; Oxygen Saturation ABG 94.2; Potassium Level - ABG 3.5 mmol/L (3.5-5.0); Total Hemoglobin 11.3 g/dL (12-16)
--- NOTE | 2021-06-27 08:52 | CT_ITS ---
WS: [id number] CT ABDOMEN AND PELVIS WITH CONTRAST HISTORY: abd pain, diarrhea. TECHNIQUE: Imaging performed of the abdomen and pelvis with IV contrast. Single phase imaging of the abdomen. Coronal and sagittal reformats are submitted. All CT scans at [facility] use at [address] one of these dose optimization techniques: automated exposure control; mA and/or kV adjustment per patient size (includes targeted exams where dose is matched to clinical indication); or iterative re construction. IV CONTRAST: Omnipaque 300; 75 mL IV. Oral contrast: No DLP: 770.55 mGy.cm COMPARISON: 06/10/2021 Lower thorax: Very small LEFT pleural effusion and dependent changes at the LEFT base from atelectasi s. Heart is normal size with a small pericardial effusion. This effusion has increased since the prio r examination. Small hiatal hernia. Liver/biliary system: Liver is normal size. Periportal edema. There is edema and decreased attenuatio n surrounding the portal vein throughout the liver. More typical pattern for edema and not bile duct dilatation. Bile duct measures 5 mm at the pancreatic head. Gallbladder: Normal. No gallstones or wall thickening. No pericholecystic fluid. Pancreas: Normal size pancreas. There is a single calcification of the pancreatic head. No duct dilat ation. Spleen: Normal size with granulomata. Adrenal glands: LEFT adrenal gland is mildly hyperplastic. No mass within either adrenal gland. Right kidney: Normal size RIGHT kidney. There is an extrarenal pelvis. No hydronephrosis. Nonobstruct ing calcification in the mid kidney. Left kidney: Normal size kidney. Small extrarenal pelvis with no hydronephrosis. Nonobstructing calci fication in the upper kidney. Aorta: Extensive calcification within the aorta. Calcifications continue into the celiac axis and the SMA. Suspect high-grade stenosis at the celiac axis and component of stenosis also at the SMA. Lymphadenopathy: None. Free fluid: Small amount of free fluid. No free air is identified. GI tract: There is been a significant change in appearance of the GI tract since the prior study. Mod erate distention of the stomach with fluid. Small bowel loops are mildly distended with wall thickeni ng throughout. There is fluid distention and dilatation of the RIGHT colon. Mucosal thickening involv ing the distal colon. There is marked wall thickening of the distal colon for small amount of adjacen t free fluid. There is significant edema and stranding around the descending and sigmoid colon. Abdominal wall: Mild diffuse soft tissue anasarca. Pelvis: Small bowel and colon loops with in the pelvis are normal. Fluid distention and wall thickeni ng. Bones: Prior LEFT hip arthroplasty. CT/CT abdomen pelvis w con* [id number] IMPRESSION: 1. Since the prior examination there has been a significant change in appearan ce of the GI tract. There is now fluid distention involving a large portion of the GI tract from the stomach to the rectum. There is significant circumferenti al wall thickening with adjacent free fluid involving the descending colon. No free air is identified. Findings are highly suspicious for infectious etiology. Patient also has significant atherosclerosis within the SMA and celiac axis. I schemic disease should also be considered. 2. Diffuse soft tissue anasarca. 3. New small pericardial effusion. 4. Progression of the periportal edema.
[2021-06-27] MEDS: iohexol 300 mg/mL 100 mL Btl IV (09:20)
--- NOTE | 2021-06-27 10:29 | P.HP_ITS ---
Providers/Chief Complaint Primary Care Provider: Mary Johnson NP Chief Complaint: dizzy ab pain History of Present Illness Deepali Farah is a 76 year old female who presents to the emergency department with history of fall. Apparently early this morning upon going to the bathroom she was having belly pain, her daughter had helped her get to the toilet and then heard her mother call for help. She was found on her knees by the toilet and they had trouble getting her up. Mother was dizzy, and very tired. They called an ambulance, and she was transported to the hospital. She had a recent hospital stay June 09 through June 12 with acute pulmonary embolism. At that time she was found to be deconditioned, and there was consideration for nursing facility placement but patient ended up requesting to go home. Home health was started at this time. Currently in the emergency department she reports she has some abdominal discomfort. She denies any nausea. Daughter reports she is not seeing any blood in her stool. She has had back pain for quite some time, which continues. No recent fever. She denies being any more short of breath than at baseline. She typically uses 2 L of oxygen. She has not had any chest discomfort or fever. Daughter, and patient both relate that she may have some type of malignancy secondary to enlarged lymph nodes found on CT of chest. Review of Systems General: Reports: 10 or more systems reviewed and unremarkable except in HPI and below Eyes: Denies: change in vision ENMT: Denies: throat pain Card: Denies: chest pain Resp: Reports: dyspnea GI: Reports: abdominal pain; Denies: hematochezia : Denies: flank pain Musc: Denies: neck pain Skin/Breast: Denies: rash Neuro: Denies: headache(s) Psych: Denies: anxiety Endo: Denies: polyuria [place]/Lymph: Denies: easy bruising All/Imm: Denies: urticaria Medications/Allergies Home Medications Medication Instructions Recorded Confirmed Last Taken Type amlodipine 10 mg tablet 10 mg PO DAILY@07/06/19 06/26/21 06/08/21 History gabapentin 300 mg capsule 300 mg PO DAILY@07/06/19 06/26/21 06/08/21 History pantoprazole 40 mg tablet,delayed 40 mg PO DAILY@07/06/19 06/26/21 06/08/21 History release albuterol sulfate [ProAir HFA] 2 puff INHALATION Q4H PRN 11/20/20 06/26/21 Unknown History amlodipine 10 mg PO DAILY@15 #30 tab 06/12/21 06/26/21 Unknown Rx apixaban [Eliquis] 5 mg PO BID #90 tab 06/12/21 06/26/21 Unknown Rx cyclobenzaprine 10 mg PO TID PRN #90 tab 06/12/21 06/26/21 Unknown Rx dexamethasone [Decadron] 2 mg PO DAILY #4 tab 06/12/21 Unknown Rx hydrocodone-acetaminophen 1 tab PO Q8H PRN #30 tab 06/12/21 06/26/21 Unknown Rx levofloxacin 750 mg PO DAILY@0600 #10 tab 06/12/21 Unknown Rx lisinopril 5 mg PO DAILY #30 tab 06/12/21 Unknown Rx methocarbamol 750 mg PO BID #60 tab 06/12/21 06/09/21 Unknown Rx oxycodone 5 mg PO DAILY PRN #20 cap 06/12/21 Unknown Rx sennosides-docusate sodium [Stool 1 tab PO DAILY #60 tab 06/12/21 06/26/21 Unknown Rx Softener-Laxative] fluticasone fur. 100 mcg-umeclid 1 inh INHALATION DAILY #60 ea 06/26/21 06/26/21 Unknown Rx 62.5 mcg-vilant 25 mcg inhalat.powder mirabegron 25 mg tablet,extended 25 mg PO DAILY 06/26/21 06/26/21 Unknown History release 24 hr triamterene 37.5 1 cap PO DAILY 06/26/21 06/26/21 Unknown History mg-hydrochlorothiazide 25 mg capsule Allergies Allergy/AdvReac Type Severity Reaction Status Date / Time No Known Allergies Allergy Verified 06/26/21 13:12 PFSH Acute PFSH: Medical History Acute pulmonary embolism At low risk for fall Carotid arterial disease Dorsalgia Facet arthropathy, lumbar Hepatic lesion Hypertension Left foot drop Leg swelling Long-term current use of opiate analgesic Lumbar disc disease Lymphadenopathy Myalgia, other site Opioid contract exists Other bursitis of hip, left hip Pancreatic lesion PVD (peripheral vascular disease) Smoker Spasm of back muscles Unstable left ankle Surgical History S/P appendectomy 1960 Status post hip hemiarthroplasty LEFT HIP - 05/12/19 Family History Mother Cancer Father Heart disease Brother Heart disease Social History Second hand smoke exposure: No Alcohol intake: never Caregiver/support person: Yes (LIVES WITH DAUGHTER) Lives independently: Yes Current occupational status: retired 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 She appears significantly weak. HEENT: Pupils equally round. Oropharynx clear. Neck is supple no lymphadenopathy or thyromegaly Cardiovascular borderline tachycardic, regular, no murmur Lungs diminished breath sounds bilaterally but no wheezes or crackles Abdomen is soft. Some slight tenderness is present more in the upper quadrants. No obvious organomegaly exam is deferred Extremities no cyanosis or clubbing. 2+ edema is noted, pitting, bilaterally. Skin no rash Neuro no focal deficits. Data : 06/27/21 04:45 06/27/21 04:45 Micro: Microbiology 06/27/21 06:13 Enteric Pathogens (PCR) - Final Stool - Stool Aspirate C.difficile Toxin B Gene (PCR) - Final Other data: ABG demonstrated pH 7.29, PCO2 46, PO2 of 77. This is on 2 L of oxygen INR is 1.05 Lactic acid 1.7, LFTs normal with exception of alk phos of 128 Albumin 3.7 Urinalysis negative Chest x-ray emphysema Abdomen pelvis CT demonstrates significant fluid distention in the large and small bowel, and some circumferential wall thickening with adjacent free fluid in the descending colon. No free air is noted. EKG sinus rhythm, normal axis, nonspecific ST-T wave changes noted V4 through 6. Left atrial enlargement suspected secondary to biphasic P wave in V1 A&P Assessment and plan (1) Colitis: Patient with area on CT scan, descending colon thought to be infectious in etiology. Most likely etiology is diverticulitis considering C. difficile is negative. Zosyn IV initiated Monitor for bowel movements Clear liquid diet currently Stool culture Status: Acute (2) Acute and chronic respiratory failure with hypercapnia: Pulmonary toilet Inhaled steroid BID Status: Acute (3) Pulmonary embolism: Continue Eliquis Status: Acute (4) Muscular deconditioning: Significantly deconditioned, high risk for repeated falls. Does have some rehabilitation potential. We will have discharge planning see regarding jail facility placement Status: Acute Additional A&P Information Chronic back pain. Pain medication as needed. Neurontin 100 mg 3 times daily Concern for malignancy secondary to mediastinal adenopathy. Has had follow-up with pulmonary x1 Currently full code, although considering allow natural Eliquis will suffice for DVT prophylaxis Attestations Medical Necessity Statement*: Will need greater than 2 midnight stay for tr eatment of colitis. 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
[2021-06-27] MEDS: HYDROcodone-acetaminophen 5-325 mg Tablet 1 TAB PO (10:37)
[2021-06-27] MEDS: sodium chloride 0.9% 1,000 ML 30 ML IV (11:00)
--- NOTE | 2021-06-27 11:30 | PC.PHAR ---
pt unable to verify meds-pts states she has home health-medications entered are on pts home health list from [facility] and what the pharmacy has filled recently-rx written for decadron 2mg daily-[facility] pharmacy filled wrong they filled 4mg daily for 2 d/s on 06/12/21-notes are made in the pharmacy comments
--- NOTE | 2021-06-27 14:22 | PC.NURSE ---
Cleaned after large BM. Clean sheets, gown and diaper. Repositioned for comfort
[2021-06-27] MEDS: ipratropium-albuterol 3 mL Neb INHALATION ×2 (14:35→20:30)
--- NOTE | 2021-06-27 15:42 | PC.NURSE ---
Cleaned pt after soiling the bed, linens. Place clean linens, gown and diaper. Repositioned for comfort. Gave drinks of cold water.
[2021-06-27] MEDS: piperacillin-tazobactam 3.375 GM in sodium chloride 0.9% (plus) 50 ML IV (18:32)
[2021-06-27] MEDS: pantoprazole DR 40 mg Tablet PO (18:33)
[2021-06-27] MEDS: gabapentin 100 mg Capsule PO ×2 (18:34→20:41)
[2021-06-27] MEDS: budesonide 0.5 mg/2 mL Neb INHALATION (20:30)
[2021-06-27] MEDS: predniSONE 20 mg Tablet 40 MG PO (20:41)
[2021-06-28] VITALS (14 sets, daily range): BP systolic 110–126; BP diastolic 50–72; PULSE 74–97; RESP 16–20; TEMP 36.6–37.3; O2SAT 92–96
[2021-06-28] MEDS: piperacillin-tazobactam 3.375 GM in sodium chloride 0.9% (plus) 50 ML IV ×3 (01:19→18:03)
[2021-06-28] MEDS: ipratropium-albuterol 3 mL Neb INHALATION ×5 (03:39→19:40)
[2021-06-28 05:44] LABS: Basophils # 0.1 10^3/uL (0.0-0.1); Basophils % 0.3 %; Hematocrit 30.7 % (37.0-47.0); Hemoglobin 10.1 g/dL (11.5-15.3); Lymphocytes # 0.4 10^3/uL (0.8-4.8); Mean Corpuscular HGB Conc 32.9 g/dL (30.0-36.0); Mean Corpuscular Hemoglobin 29.5 pg (28.0-34.0); Mean Corpuscular Volume 89.8 fl (81-99); Mean Platelet Volume 10.2 fL (7.4-10.4); Monocytes # 0.7 10^3/uL (0.2-0.9); Monocytes % 3.2 %; Neutrophils # 19.21 10^3/uL (1.8-7.7); Neutrophils % 93.8 %; Nucleated Red Blood Cells % 0 %; Platelet Count 263 10^3/cmm (130-400); Red Blood Count 3.42 10^6/uL (4.1-5.3); Red Cell Distribution Width 14.6 % (12.1-15.1); White Blood Count 20.5 10^3/uL (4.0-10.0)
[2021-06-28 05:57] LABS: Alanine Aminotransferase 14 U/L (0-33); Albumin Level 2.8 g/dL (3.5-5.2); Alkaline Phosphatase 76 IU/L (35-105); Anion Gap 16.6 (5-19); Aspartate Amino Transferase 21 U/L (0-32); Blood Urea Nitrogen 9 mg/dL (8-23); Calcium 7.9 mg/dL (8.5-10.5); Carbon Dioxide 19 mmol/L (22-29); Chloride 103 mmol/L (98-107); Globulin 2.2 g/dL (1.3-4.6); Glucose 130 mg/dL (65-115); Osmolality Calculated 280 mOsm/kg (285-295); Potassium 3.6 mmol/L (3.5-5.1); Sodium 135 mmol/L (136-145); Total Bilirubin 0.4 mg/dL (0.15-1.2)
[2021-06-28] MEDS: predniSONE 20 mg Tablet 40 MG PO (07:56)
[2021-06-28] MEDS: pantoprazole DR 40 mg Tablet PO ×2 (07:57→17:57)
[2021-06-28] MEDS: gabapentin 100 mg Capsule PO ×3 (07:57→20:21)
[2021-06-28] MEDS: apixaban 5 mg Tablet PO ×2 (07:57→17:57)
[2021-06-28] MEDS: budesonide 0.5 mg/2 mL Neb INHALATION ×2 (09:05→19:40)
--- NOTE | 2021-06-28 14:36 | P.PN_ITS ---
Subjective Subjective: Interval history: Patient seems very irritable and agitated, did not cooperate very much with the OT and PT. Advance diet to full liquid Requested lactic acid there is jump in her leukocytosis, prednisone were started as well yesterday Vitals/I&O/Wt Last Vital Signs Temp 98.1 F 06/28/21 12:00 Pulse 74 06/28/21 12:00 Resp 16 06/28/21 12:00 BP 115/70 06/28/21 12:00 Pulse Ox 94 06/28/21 12:00 06/27/21 06/28/21 06/28/21 22:59 06:59 14:59 Intake Total 530 / 1530 290 / 1820 770 / 770 Balance 530 / 1530 290 / 1820 770 / 770 Weight last 48 hrs Weight 49.442 kg Weight 47.627 kg Physical Exam Narrative: EXAM NARRATIVE: Malnourished cachectic Muscle mass loss Appears stated age Dehydrated Saturating well on nasal cannula Waxing and waning mentation Irritable mood Nonfocal neuro exam Data : 06/29/21 05:21 06/29/21 05:21 Micro: Microbiology 06/27/21 06:13 Enteric Pathogens (PCR) - Final Stool - Stool Aspirate C.difficile Toxin B Gene (PCR) - Final A&P Assessment and plan (1) COPD (chronic obstructive pulmonary disease): Status: Acute Qualifiers: COPD type: emphysema Emphysema type: centrilobular Qualified Code(s): J43.2 - Centrilobular emphysema (2) Lymphadenopathy: Status: Acute (3) Muscular deconditioning: Status: Acute (4) Acute and chronic respiratory failure with hypercapnia: Status: Acute (5) Colitis: Status: Acute (6) Pulmonary embolism: Status: Acute Qualifiers: Pulmonary embolism type: single subsegmental (without acute cor pulmonale) Qualified Code(s): I26.93 - Single subsegmental pulmonary embolism without acute cor pulmonale Additional A&P Information Colitis: C. difficile negative Severe atherosclerotic disease, concern for ischemic colitis versus infectious Continue Zosyn with IV fluids She was discharged on Eliquis for her pulmonary embolism on recent discharge, Pericardial effusion was present on echo in mild quantity on last admission Blood pressure stable Continue IV hydration check lactic acid On previous admission she had pancreatic mass with hepatic lesions however on repeat CT scan no such findings were noted there is concern for malignancy for which she was referred outpatient/pulmonology follow-up Severe deconditioning with muscle mass loss,, low albumin and BMI Can use albumin if her p.o. intake stays poor COPD exacerbation at the time of admission noted I will continue her inhaled steroids and discontinue systemic steroids there is jump in her leukocytosis we will monitor for now Full code, Once clinically stable will need group home placement DVT prophylaxis covered with Latoya Pérezations Medical Necessity Statement*: Continue medical management Time Spent in Patient Care: 16 - 35 minutes Coding Level of Care Code Acute Information Systems Director for [facility] Fwd Diagnoses COPD (chronic obstructive pulmonary disease) J43.2 COPD type: emphysema Emphysema type: centrilobular Lymphadenopathy R59.1 Muscular deconditioning R29.898 Acute and chronic respiratory failure with hypercapnia J96.22 Colitis K52.9 Pulmonary embolism I26.93 Pulmonary embolism type: single subsegmental (without acute cor pulmonale)
--- NOTE | 2021-06-28 14:46 | USR_ITS ---
PROCEDURE INFORMATION: Exam: US Duplex Scan of Inferior Vena Cava, Iliac Vasculature, or Bypass Grafts, Complete Exam date and time: 06/28/2021 2:46 PM Age: 76 years old Clinical indication: Condition or disease; Other: Pulmonary embolism; Additional info: Color doppler of portal vein to rule out portal vein thrombo TECHNIQUE: Imaging protocol: Real-time duplex ultrasound scan of the Aorta, IVC, iliac vasculature, or bypass grafts in the abdomen with color Doppler flow and spectral waveform analysis with image documentation. Complete exam. COMPARISON: CT angio chest [id number] 06/09/2021 3:59 PM FINDINGS: Hepatic veins: Right hepatic vein, left hepatic vein and main hepatic vein appear patent Inferior vena cava: Inferior vena cava appears patent. Portal venous: Right portal vein, left portal vein and main portal vein appear patent. US/[place] duplex IVC [id number] IMPRESSION: Visualized venous structures appear patent with normal blood flow
[2021-06-28] MEDS: albumin 12.5 GM/250 ML VIAL IV (15:35)
[2021-06-28] MEDS: sodium chloride 0.9% 1,000 ML 30 ML IV (18:25)
[2021-06-29] VITALS (12 sets, daily range): BP systolic 115–156; BP diastolic 61–85; PULSE 62–94; RESP 16–18; TEMP 36.6–37.3; O2SAT 91–98
[2021-06-29] MEDS: piperacillin-tazobactam 3.375 GM in sodium chloride 0.9% (plus) 50 ML IV ×3 (01:11→17:30)
[2021-06-29] MEDS: oxyCODONE 5 mg IR Tab/Cap PO (03:11)
[2021-06-29] MEDS: ipratropium-albuterol 3 mL Neb INHALATION ×3 (03:30→20:11)
[2021-06-29 05:52] LABS: Basophils % 0.3 %; Eosinophils % 0.1 %; Hemoglobin 9.3 g/dL (11.5-15.3); Lymphocytes # 1.3 10^3/uL (0.8-4.8); Lymphocytes % 8.6 %; Mean Corpuscular HGB Conc 33.2 g/dL (30.0-36.0); Mean Corpuscular Volume 90.3 fl (81-99); Mean Platelet Volume 10.2 fL (7.4-10.4); Monocytes # 1.1 10^3/uL (0.2-0.9); Neutrophils # 12.84 10^3/uL (1.8-7.7); Neutrophils % 83.6 %; Nucleated Red Blood Cells % 0 %; Platelet Count 236 10^3/cmm (130-400); Red Cell Distribution Width 14.4 % (12.1-15.1); White Blood Count 15.4 10^3/uL (4.0-10.0)
[2021-06-29 06:22] LABS: Anion Gap 14.4 (5-19); Blood Urea Nitrogen 5 mg/dL (8-23); Calcium 8.1 mg/dL (8.5-10.5); Carbon Dioxide 23 mmol/L (22-29); Chloride 102 mmol/L (98-107); Glucose 88 mg/dL (65-115); Osmolality Calculated 279 mOsm/kg (285-295); Potassium 3.4 mmol/L (3.5-5.1); Sodium 136 mmol/L (136-145)
[2021-06-29 06:26] LABS: Lactate (Lactic Acid level) 0.7 mmol/L (0.5-2.2)
[2021-06-29] MEDS: budesonide 0.5 mg/2 mL Neb INHALATION ×2 (08:39→20:11)
[2021-06-29] MEDS: magnesium hydroxide 30 mL UDC PO (09:04)
[2021-06-29] MEDS: polyethylene glycol 3350 Pkt 17 gm PO (09:04)
[2021-06-29] MEDS: sennosides-docusate Tablet 2 TAB PO ×2 (09:04→17:30)
[2021-06-29] MEDS: gabapentin 100 mg Capsule PO ×3 (09:05→20:32)
[2021-06-29] MEDS: potassium chloride ER 20 mEq Tablet 40 MEQ PO (09:05)
[2021-06-29] MEDS: pantoprazole DR 40 mg Tablet PO ×2 (09:05→17:30)
[2021-06-29] MEDS: apixaban 5 mg Tablet PO ×2 (09:05→17:30)
--- NOTE | 2021-06-29 11:23 | P.PN_ITS ---
Subjective Subjective: Interval history: Patient is stating that she does not want to go to penitentiary and would like to talk with her daughter again, however she is weak and lethargic, did not participate very well with physical therapy yesterday Today she is willing to do so Not complaining active back pain worsening No overnight events She is endorsing constipation, her last bowel movement was 3 days ago Vitals/I&O/Wt Last Vital Signs Temp 98.1 F 06/29/21 08:00 Pulse 91 06/29/21 08:42 Resp 16 06/29/21 08:42 BP 131/85 06/29/21 08:00 Pulse Ox 95 06/29/21 08:42 06/28/21 06/29/21 06/29/21 22:59 06:59 14:59 Intake Total 1742.5 / 2512.5 150 / 2662.5 Output Total 600 / 600 900 / 1500 Balance 1142.5 / 1912.5 -750 / 1162.5 Weight last 48 hrs Weight 49.442 kg Physical Exam Narrative: EXAM NARRATIVE: Patient sitting in her bed comfortably Saturating well on 2 L nasal cannula No acute respiratory distress S1, S2 Cachectic, malnourished, muscle mass loss Awake and alert Nonfocal neuro exam She is not confused at all Charcot foot Data : 06/29/21 05:21 06/29/21 05:21 A&P Assessment and plan (1) COPD (chronic obstructive pulmonary disease): Status: Acute Qualifiers: COPD type: emphysema Emphysema type: centrilobular Qualified Code(s): J43.2 - Centrilobular emphysema (2) Lymphadenopathy: Status: Acute (3) Muscular deconditioning: Status: Acute (4) Acute and chronic respiratory failure with hypercapnia: Status: Acute (5) Colitis: Status: Acute (6) Pulmonary embolism: Status: Acute Qualifiers: Pulmonary embolism type: single subsegmental (without acute cor pulmonale) Qualified Code(s): I26.93 - Single subsegmental pulmonary embolism without acute cor pulmonale (7) Mass of pancreas: Status: Acute (8) Lung nodule: Status: Acute (9) Adult failure to thrive: Status: Acute Additional A&P Information Colitis: Afebrile, White count trending down Continue current antibiotic regimen Tolerating her [place] diet, will advance to regular today C. difficile negative No lactic acidosis No abdominal rigidity on clinical exam Hypokalemia: Repleted Previous history of pulmonary embolism: Continue anticoagulating agent Pulmonary lymphadenopathy, patient was referred to pathology assistant at the time of discharge on previous admission Muscle mass loss, failure to thrive, Awaiting penitentiary placement Today patient is saying that she would like to be discussed with the daughter Advancing diet today Full code DVT prophylaxis Eliquis COPD without exacerbation doing well on 2 L nasal cannula Attestations Medical Necessity Statement*: NeckAnticipating discharge 24 to 36 hours awaiting placement Time Spent in Patient Care: less than 15 minutes Coding Level of Care Code Acute Nitrocellulose Maker for Chg Fwd Diagnoses COPD (chronic obstructive pulmonary disease) J43.2 COPD type: emphysema Emphysema type: centrilobular Lymphadenopathy R59.1 Muscular deconditioning R29.898 Acute and chronic respiratory failure with hypercapnia J96.22 Colitis K52.9 Pulmonary embolism I26.93 Pulmonary embolism type: single subsegmental (without acute cor pulmonale) Mass of pancreas K86.89 Lung nodule R91.1 Adult failure to thrive R62.7
[2021-06-30] VITALS (15 sets, daily range): BP systolic 121–159; BP diastolic 52–77; PULSE 66–95; RESP 16–20; TEMP 36.5–37.1; O2SAT 90–98
[2021-06-30] MEDS: piperacillin-tazobactam 3.375 GM in sodium chloride 0.9% (plus) 50 ML IV ×2 (01:38→08:29)
[2021-06-30] MEDS: ipratropium-albuterol 3 mL Neb INHALATION ×4 (02:32→19:35)
[2021-06-30 05:43] LABS: Basophils # 0.1 10^3/uL (0.0-0.1); Basophils % 0.5 %; Eosinophils # 0.1 10^3/uL (0.0-0.8); Eosinophils % 1.2 %; Hematocrit 32.2 % (37.0-47.0); Hemoglobin 10.6 g/dL (11.5-15.3); Lymphocytes # 0.9 10^3/uL (0.8-4.8); Lymphocytes % 9.8 %; Mean Corpuscular HGB Conc 32.9 g/dL (30.0-36.0); Mean Corpuscular Hemoglobin 29.4 pg (28.0-34.0); Mean Corpuscular Volume 89.4 fl (81-99); Mean Platelet Volume 10.8 fL (7.4-10.4); Monocytes # 0.8 10^3/uL (0.2-0.9); Monocytes % 8.4 %; Neutrophils # 7.67 10^3/uL (1.8-7.7); Neutrophils % 79.8 %; Nucleated Red Blood Cells % 0 %; Platelet Count 258 10^3/cmm (130-400); Red Cell Distribution Width 14.2 % (12.1-15.1); White Blood Count 9.6 10^3/uL (4.0-10.0)
[2021-06-30 06:02] LABS: Blood Urea Nitrogen 7 mg/dL (8-23); Calcium 8.6 mg/dL (8.5-10.5); Carbon Dioxide 24 mmol/L (22-29); Chloride 96 mmol/L (98-107); Glucose 78 mg/dL (65-115); Osmolality Calculated 275 mOsm/kg (285-295); Sodium 134 mmol/L (136-145)
[2021-06-30 06:08] LABS: Magnesium 1.9 mg/dL (1.7-2.3)
[2021-06-30] MEDS: apixaban 5 mg Tablet PO ×2 (08:29→17:13)
[2021-06-30] MEDS: pantoprazole DR 40 mg Tablet PO ×2 (08:29→17:13)
[2021-06-30] MEDS: sennosides-docusate Tablet 2 TAB PO ×2 (08:29→17:13)
[2021-06-30] MEDS: gabapentin 100 mg Capsule PO ×3 (08:29→21:30)
[2021-06-30] MEDS: budesonide 0.5 mg/2 mL Neb INHALATION ×2 (08:48→19:35)
--- NOTE | 2021-06-30 13:41 | P.PN_ITS ---
Subjective Subjective: Interval history: Patient is agreeable to work with physical therapy today, she is waiting to get accepted a couple shelter discharge planners updated Patient endorsing fatigue and lethargy, she had couple of small bowel movements yesterday Vitals/I&O/Wt Last Vital Signs Temp 98.5 F 06/30/21 11:26 Pulse 80 06/30/21 11:26 Resp 16 06/30/21 11:26 BP 132/61 06/30/21 11:26 Pulse Ox 93 06/30/21 11:26 06/29/21 06/30/21 06/30/21 22:59 06:59 14:59 Intake Total 910 / 960 330 / 1290 250 / 250 Output Total 2270 / 2270 360 / 2630 450 / 450 Balance -1360 / -1310 -30 / -1340 -200 / -200 Physical Exam Narrative: EXAM NARRATIVE: Fatigue and lethargic, laying in semi-Escudero position 2 L nasal cannula Cachectic malnourished muscle mass loss No audible stridor or wheezing No active acute respiratory distress No conversational dyspnea Soft abdomen No signs of edema Nonfocal neuro exam Data : 06/30/21 04:58 06/30/21 04:58 A&P Assessment and plan (1) Muscular deconditioning: Status: Acute (2) Colitis: Status: Acute (3) Pulmonary embolism: Status: Acute Qualifiers: Pulmonary embolism type: single subsegmental (without acute cor pulmonale) Qualified Code(s): I26.93 - Single subsegmental pulmonary embolism without acute cor pulmonale (4) COPD (chronic obstructive pulmonary disease): Status: Acute Qualifiers: COPD type: emphysema Emphysema type: centrilobular Qualified Code(s): J43.2 - Centrilobular emphysema (5) Lymphadenopathy: Status: Acute (6) Mass of pancreas: Status: Acute Additional A&P Information Colitis: Resolving Patient was given bowel regimen yesterday, she has had multiple small bowel movements as per the nursing staff De-escalate antibiotics to ciprofloxacin and Flagyl Continue bowel regimen COPD without acute exacerbation currently doing well on 2 L Portal vein is patent, no signs of thrombosis, Start regular diet today Awaiting shelter placement PT evaluation today DVT prophylaxis: on PE Eliquis regimen Attestations Medical Necessity Statement*: Awaiting placement Time Spent in Patient Care: 16 - 35 minutes Coding Level of Care Code Acute Pressure Control Supervisor for [facility] Fwd Diagnoses Muscular deconditioning R29.898 Colitis K52.9 Pulmonary embolism I26.93 Pulmonary embolism type: single subsegmental (without acute cor pulmonale) COPD (chronic obstructive pulmonary disease) J43.2 COPD type: emphysema Emphysema type: centrilobular Lymphadenopathy R59.1 Mass of pancreas K86.89
[2021-06-30] MEDS: metroNIDAZOLE 500 MG Tablet PO ×2 (15:36→21:30)
[2021-06-30] MEDS: ciprofloxacin 500 mg Tablet PO (21:30)
[2021-06-30] MEDS: oxyCODONE 5 mg IR Tab/Cap PO (21:32)
[2021-07-01] VITALS (15 sets, daily range): BP systolic 115–153; BP diastolic 58–76; PULSE 68–90; RESP 14–20; TEMP 36.3–37.3; O2SAT 89–98
[2021-07-01] MEDS: ipratropium-albuterol 3 mL Neb INHALATION ×4 (02:35→20:58)
[2021-07-01] MEDS: oxyCODONE 5 mg IR Tab/Cap PO ×2 (03:51→21:18)
[2021-07-01 06:13] LABS: Basophils % 0.4 %; Eosinophils # 0.1 10^3/uL (0.0-0.8); Eosinophils % 1.7 %; Hematocrit 32.1 % (37.0-47.0); Hemoglobin 10.5 g/dL (11.5-15.3); Lymphocytes # 0.8 10^3/uL (0.8-4.8); Lymphocytes % 9.7 %; Mean Corpuscular HGB Conc 32.7 g/dL (30.0-36.0); Mean Corpuscular Hemoglobin 29.4 pg (28.0-34.0); Mean Corpuscular Volume 89.9 fl (81-99); Mean Platelet Volume 10.1 fL (7.4-10.4); Monocytes # 0.8 10^3/uL (0.2-0.9); Monocytes % 9.8 %; Neutrophils # 6.45 10^3/uL (1.8-7.7); Nucleated Red Blood Cells % 0 %; Platelet Count 290 10^3/cmm (130-400); Red Blood Count 3.57 10^6/uL (4.1-5.3); Red Cell Distribution Width 13.9 % (12.1-15.1); White Blood Count 8.3 10^3/uL (4.0-10.0)
[2021-07-01 06:37] LABS: Blood Urea Nitrogen 11 mg/dL (8-23); Calcium 8.4 mg/dL (8.5-10.5); Carbon Dioxide 24 mmol/L (22-29); Chloride 100 mmol/L (98-107); Glucose 105 mg/dL (65-115); Osmolality Calculated 284 mOsm/kg (285-295); Sodium 137 mmol/L (136-145)
[2021-07-01] MEDS: budesonide 0.5 mg/2 mL Neb INHALATION ×2 (08:35→20:58)
[2021-07-01] MEDS: apixaban 5 mg Tablet PO ×2 (11:44→18:13)
[2021-07-01] MEDS: ciprofloxacin 500 mg Tablet PO ×2 (11:44→21:11)
[2021-07-01] MEDS: gabapentin 100 mg Capsule PO ×3 (11:44→21:11)
[2021-07-01] MEDS: metroNIDAZOLE 500 MG Tablet PO ×3 (11:44→21:11)
[2021-07-01] MEDS: polyethylene glycol 3350 Pkt 17 gm PO (11:44)
[2021-07-01] MEDS: sennosides-docusate Tablet 2 TAB PO ×2 (11:44→18:13)
[2021-07-01] MEDS: pantoprazole DR 40 mg Tablet PO ×2 (11:44→18:13)
--- NOTE | 2021-07-01 14:23 | P.PN_ITS ---
Subjective Subjective: Interval history: Patient was eating breakfast when entered the room, she was on room air, no acute respiratory distress No overnight events, Her last bowel movement was 48 hours ago Vitals/I&O/Wt Last Vital Signs Temp 97.8 F 07/01/21 12:00 Pulse 83 07/01/21 12:00 Resp 16 07/01/21 12:00 BP 147/71 07/01/21 12:00 Pulse Ox 92 07/01/21 12:00 06/30/21 07/01/21 07/01/21 22:59 06:59 14:59 Intake Total 240 / 490 120 / 610 600 / 600 Output Total 350 / 800 Balance 240 / 40 -230 / -190 600 / 600 Physical Exam Narrative: EXAM NARRATIVE: No acute respite distress She was on room air when entered the room, she was eating breakfast Nonfocal neuro exam Dehydrated malnourished, muscle mass loss Awake and alert Nonfocal neuro exam Abdomen soft No audible stridor or wheezing Data : 07/01/21 05:14 07/01/21 05:14 A&P Assessment and plan (1) COPD (chronic obstructive pulmonary disease): Status: Acute (2) Lymphadenopathy: Status: Acute (3) Muscular deconditioning: Status: Acute (4) Colitis: Status: Acute (5) Pulmonary embolism: Status: Acute (6) Degenerative lumbar disc: Status: Acute (7) Adult failure to thrive: Status: Acute Additional A&P Information Today I am not planning to add any medications She has been deescalated to ciprofloxacin and Flagyl for colitis, she is tolerating her diet, last bowel movement was 48 hours ago, she is currently on bowel regimen Can try enema tomorrow if no success At baseline requires 2 L of oxygen, Awaiting placement No signs of portal vein thrombosis Leukocytosis improved, afebrile, cultures negative to date, C. difficile negative Today patient is stating that she does not want any chest compressions or intubation if there is cardiac arrest or respiratory distress, she is awake and alert nonfocal neuro exam, will change her CODE STATUS, she does not want any histopathological diagnosis for her pulmonary lymphadenopathy, she is stating that in case of malignancy she would not opt for chemo radiotherapy Regular diet DNR/DNI Continue Eliquis for previous history of PE Attestations Medical Necessity Statement*: Awaiting placement Time Spent in Patient Care: 16 - 35 minutes Coding Level of Care Code Acute Heavy Mobile Equipment Operator for g Fwd Diagnoses COPD (chronic obstructive pulmonary disease) J44.9 Lymphadenopathy R59.1 Muscular deconditioning R29.898 Colitis K52.9 Pulmonary embolism I26.99 Degenerative lumbar disc M51.36 Adult failure to thrive R62.7
[2021-07-01] MEDS: acetaminophen 325 mg Tablet 650 MG PO ×2 (16:13→22:54)
--- NOTE | 2021-07-01 19:20 | PC.NURSE ---
Shift report received from Mirlande HENDERSON. Patient in bed/awake/ watching TV. O2 2L. IV patent/SL. No needs voiced at this time.
[2021-07-02] VITALS (8 sets, daily range): BP systolic 114–165; BP diastolic 69–75; PULSE 68–94; RESP 16–18; TEMP 36.6–37.2; O2SAT 90–97
[2021-07-02] MEDS: ipratropium-albuterol 3 mL Neb INHALATION (02:48)
[2021-07-02] MEDS: oxyCODONE 5 mg IR Tab/Cap PO (03:02)
[2021-07-02] MEDS: magnesium hydroxide 30 mL UDC PO (06:47)
[2021-07-02] MEDS: sennosides-docusate Tablet 2 TAB PO (09:16)
[2021-07-02] MEDS: metroNIDAZOLE 500 MG Tablet PO (09:16)
[2021-07-02] MEDS: gabapentin 100 mg Capsule PO (09:17)
[2021-07-02] MEDS: pantoprazole DR 40 mg Tablet PO (09:17)
[2021-07-02] MEDS: apixaban 5 mg Tablet PO (09:17)
[2021-07-02] MEDS: polyethylene glycol 3350 Pkt 17 gm PO (09:17)
[2021-07-02] MEDS: ciprofloxacin 500 mg Tablet PO (09:33)
--- NOTE | 2021-07-02 11:48 | P.PN_ITS ---
Subjective Subjective: Interval history: No overnight events, spoke with her daughter as well, both are in agreement to go to a correction this time, I did discuss with them in regards to goals of care and palliative management in case of further decline in her health in future Vitals/I&O/Wt Last Vital Signs Temp 98.9 F 07/02/21 07:31 Pulse 78 07/02/21 09:19 Resp 16 07/02/21 09:19 BP 125/69 07/02/21 07:31 Pulse Ox 94 07/02/21 09:19 07/01/21 07/02/21 07/02/21 22:59 06:59 14:59 Intake Total 600 / 1200 40 / 1240 360 / 360 Output Total 350 / 350 150 / 150 Balance 600 / 1200 -310 / 890 210 / 210 Physical Exam Narrative: EXAM NARRATIVE: Patient was eating breakfast On room air S1, S2 Doing well No acute respiratory distress No conversational dyspnea Seems to be back to baseline EOMI, PERRLA Data : 07/01/21 05:14 07/01/21 05:14 A&P Assessment and plan (1) COPD (chronic obstructive pulmonary disease): Status: Acute (2) Lymphadenopathy: Status: Acute (3) Muscular deconditioning: Status: Acute (4) Pulmonary embolism: Status: Acute (5) Emaciated: Status: Acute Additional A&P Information Colitis: Antibiotic the escalated to p.o. Awaiting placement Tolerating diet Afebrile No COPD exacerbation On anticoagulating agent for PE Spoke with her daughter Attestations Medical Necessity Statement*: Awaiting placement Time Spent in Patient Care: less than 15 minutes Coding Level of Care Code Acute Foreign Exchange Clerk for [facility] Fwd Diagnoses COPD (chronic obstructive pulmonary disease) J44.9 Lymphadenopathy R59.1 Muscular deconditioning R29.898 Pulmonary embolism I26.99 Emaciated R64
--- NOTE | 2021-07-02 14:54 | P.DS_ITS ---
Discharge Providers Date of Admission: 06/27/21 10:03 Date of Discharge: July 02, 2021 Attending Provider at Admission: Abdiel Olivo MD Attending Provider at Discharge: Alexandre Orantes MD Primary Care Provider: Mary Johnson NP Diagnoses at Discharge Discharge Diagnosis (1) COPD (chronic obstructive pulmonary disease): Status: Acute (2) Lymphadenopathy: Status: Acute (3) Muscular deconditioning: Status: Acute (4) Pulmonary embolism: Status: Acute (5) Emaciated: Status: Acute Reason for Visit Reason for Visit: dizzy ab pain Hospital Course Hospital Course History of Present Illness by Dr. Olivo Deepali Farah is a 76 year old female who presents to the emergency department with history of fall. Apparently early this morning upon going to the bathroom she was having belly pain, her daughter had helped her get to the toilet and then heard her mother call for help. She was found on her knees by the toilet and they had trouble getting her up. Mother was dizzy, and very tired. They called an ambulance, and she was transported to the hospital. She had a recent hospital stay June 09 through June 12 with acute pulmonary embolism. At that time she was found to be deconditioned, and there was consideration for nursing facility placement but patient ended up requesting to go home. Home health was started at this time. Currently in the emergency department she reports she has some abdominal discomfort. She denies any nausea. Daughter reports she is not seeing any blood in her stool. She has had back pain for quite some time, which continues. No recent fever. She denies being any more short of breath than at baseline. She typically uses 2 L of oxygen. She has not had any chest discomfort or fever. Daughter, and patient both relate that she may have some type of malignancy secondary to enlarged lymph nodes found on CT of chest. Hospital course Patient was admitted for management of colitis, hypercapnic respiratory failure which improved, she required IV antibiotics which were deescalated to p.o. Augmentin at the time of discharge, she remained afebrile, cultures negative, C. difficile panel negative. She has pulmonary lymphadenopathy, patient is stating that she does not want to undergo any histopathological diagnosis or chemoradiotherapy in case she gets diagnosis of malignancy. During this visit she was not cooperating with the physical therapist initially however she was able to walk 90 feet with assistance. She'll be discharged home with home health services. Her discharge was delayed because initially we were trying to place her into a residential however she was declined. Daughter agreeable for discharge home with home health services. Discharge planners worked diligently. At the time of discharge she was doing well on 2 L of nasal cannula, at home she takes Eliquis for her history of pulmonary embolism. She remained constipated and required bowel regimen during this hospitalization. Patient might think about palliative care in case of further decline in her health Physical Exam Narrative: EXAM NARRATIVE: Frail female Malnourished Muscle mass loss Emaciated Soft abdomen Doing well on 2 L nasal cannula EOMI, PERRLA Nonfocal neuro exam Charcot foot Discharge Data Data Completed and Pending: Completed Studies During Hospitalization Category Date Time Status CT abdomen pelvis w con* [id number] Stat Cat Scan 06/27/21 08:52 Completed XR chest 1V kevin ble [id number] Urgent Exams 06/27/21 05:48 Completed CV duplex IVC [id number] Routine Ultrasound 06/28/21 14:46 Completed Vitals: Last Vital Signs Temp 98.5 F 07/02/21 11:57 Pulse 94 07/02/21 11:57 Resp 16 07/02/21 11:57 BP 165/75 07/02/21 11:57 Pulse Ox 91 07/02/21 11:57 Discharge Plan Discharge Patient Disposition: Home Condition: Stable Prescriptions: New Stool Softener-Laxative 8.6-50 mg Tablet 2 tab PO BID Qty: 20 RF: 0 Augmentin 875-125 mg tablet 1 tab PO BID Qty: 20 RF: 0 Continued gabapentin 300 mg capsule 300 mg PO BID RF: 0 pantoprazole 40 mg tablet,delayed release (DR/EC) 40 mg PO DAILY@15 RF: 0 Myrbetriq 25 mg tablet extended release 24 hr 25 mg PO DAILY RF: 0 Trelegy Ellipta 100-62.5-25 mcg blister with device 1 inh inhalation DAILY Qty: 60 RF: 3 cyclobenzaprine 10 mg Tablet 10 mg PO TID PRN (Reason: Muscle Spasms) Qty: 90 RF: 1 sennosides-docusate sodium [Stool Softener-Laxative] 8.6-50 mg Tablet 1 tab PO DAILY Qty: 60 RF: 1 amlodipine 10 mg Tablet 10 mg PO DAILY@15 Qty: 30 RF: 3 lisinopril 10 mg Tablet 5 mg PO DAILY Qty: 30 RF: 3 oxycodone 5 mg capsule 5 mg PO DAILY PRN (Reason: pain) Qty: 20 RF: 0 methocarbamol 750 mg tablet 750 mg PO BID Qty: 60 RF: 2 Eliquis 5 mg tablet 5 mg PO BID Qty: 90 RF: 3 hydrocodone-acetaminophen 5-325 mg tablet 1 tab PO Q8H PRN (Reason: pain) Qty: 30 RF: 0 albuterol sulfate [ProAir HFA] 90 mcg/actuation HFA aerosol inhaler 2 puff INHALATION Q4H PRN (Reason: Wheezing) RF: 0 tizanidine 4 mg tablet 4 mg PO BID PRN (Reason: Muscle Pain) RF: 0 Discontinued levofloxacin 750 mg Tablet 750 mg PO DAILY@0600 Qty: 10 RF: 0 dexamethasone [Decadron] 4 mg tablet 8 mg PO DAILY RF: 0 Discharge Orders: Discharge Order (Routine); Ordered 07/02/21 Ordered By: Alexandre Orantes Referrals: [facility] ([facility]) [Outside] Mary Johnson NP [Primary Care Provider] - 07/07/21 1:30 pm Patient Instructions: Amoxicillin/Clavulanate Potassium (By mouth), Laxative, Stool Softeners (By mouth), Opioid Safety Discharge Attestations Time Spent in Discharge Care*: less than 30 min Quality Metrics Clinical Quality Measures During this hospital stay, did patient experience: None Coding Level of Care Code Acute Chg FW DC note Diagnoses COPD (chronic obstructive pulmonary disease) J44.9 Lymphadenopathy R59.1 Muscular deconditioning R29.898 Pulmonary embolism I26.99 Emaciated R64
--- NOTE | 2021-07-02 16:51 | PC.NURSE ---
AT APPROX. 1600 PTS DAUGHTER GOT HER UP, SHE STATED MOM SAID, SHE HAD THE BRUISE TO THE L OUTER HIP AREA BECAUSE STAFF HAD ROLLED HER AND IT WAS FROM STAFFS HANDS. THIS BRUISE WAS PRESENT ON ADMISSION, PT WAS ADMITTED DUE TO A FALL FROM THE TOLIET TO THE SPACE BETWEEN THE TOLIET AND SINK. THIS IS WHAT WAS TOLD IN REPORT FROM ER, THIS WAS STATED BY THE PTS DAUGHTER UPON ARRIVAL TO THE ER.
== END 2021-07-02 16:30 | disposition home or self-care (01) ==
LOC: ER 10:36 → ER IP 16:58 → MEDSURG 06-28 03:39 → ER IP 06-28 09:38
PROVIDERS: Emergency Medicine; Admitting Provider Internal Medicine; Emergency Provider Family Medicine; PCP Nurse Practitioner; Visit Provider Internal Medicine
DX: K52.9 Noninfective gastroenteritis and colitis, unspecified (principal); Z91.81 History of falling; R59.1 Generalized enlarged lymph nodes; R29.898 Other symptoms and signs involving the musculoskeletal system; R64 Cachexia; Z86.711 Personal history of pulmonary embolism; Z99.81 Dependence on supplemental oxygen; Z79.01 Long term (current) use of anticoagulants; J96.22 Acute and chronic respiratory failure with hypercapnia; J43.2 Centrilobular emphysema; R62.7 Adult failure to thrive; M51.36 Other intervertebral disc degeneration, lumbar region; Z87.891 Personal history of nicotine dependence; G89.29 Other chronic pain; M54.9 Dorsalgia, unspecified
CPT/HCPCS: 36415; 36416; 36600; 71045; 74177; 80048; 80051; 80053; 81003; 82330; 82550; 82805; 82962; 83605; 83690; 83735; 85025; 85610; 86140; 87493; 87506; 93005; 93978; 94640; 94660; 96365; 96367; 97110; 97116; 97161; 97166; 97530; 97535; 99291; G0378; J2543; J7030; J7512; J7626; P9041; Q9967

== ENCOUNTER → 2021-09-11 09:28 | Outpatient (BNVA) | payer MEDICARE, MEDICAID, SELFPAY | PROVIDERS: PCP Nurse Practitioner; Visit Provider Internal Medicine Pulmonary Disease | DX: Z01.812 Encounter for preprocedural laboratory examination (principal); Z20.822 Contact with and (suspected) exposure to COVID-19 | CPT/HCPCS: 87635 ==

== ENCOUNTER 2021-09-13 13:09 | Emergency (ER) | payer MEDICARE, MEDICAID, SELFPAY ==
[2021-09-13 13:38] VITALS: BP 153/68; PULSE 94; TEMP 36.6; O2SAT 100
[2021-09-13 14:09] VITALS: RESP 18; TEMP 36.6; O2SAT 99; BMI 17.7
--- NOTE | 2021-09-13 14:26 | XRR_ITS ---
PROCEDURE INFORMATION: Exam: XR Chest Exam date and time: 09/13/2021 2:26 PM Age: 76 years old Clinical indication: Cough and dyspnea; Additional info: Dyspnea/cough TECHNIQUE: Imaging protocol: XR of the chest. Views: 1 view. COMPARISON: CR XR chest 1V portable [id number] 06/27/2021 6:19 AM FINDINGS: Lungs: There are pulmonary parenchymal calcifications consistent with remote granulomatous organism exposure. COPD morphology of the chest, unchanged from the prior study. Pleural spaces: Unremarkable. No pleural effusion. No pneumothorax. Heart/Mediastinum: Unremarkable. No cardiomegaly. Diaphragm: Minimal elevation of the left hemidiaphragm, similar to the prior study. Bones/joints: Unremarkable. XR/XR chest 1V portable [id number] IMPRESSION: COPD morphology of the chest, similar to the prior study. No evidence for acute cardiopulmonary disease.
--- NOTE | 2021-09-13 14:46 | ED_ITS ---
HPI - COVID General: Chief Complaint: COVID symptoms Stated Complaint: COVID + Diff breathing Time Seen by Provider: 09/13/21 14:23 Triage information: Has fever, cough or shortness of breath . Exposure to COVID + person last 14 days History of Present Illness: 76-year-old female presents emergency room complaining of shortness of breath for the last 3 days. She has labored breathing but is not requiring any oxygen supplementation. She has had some loose stools.She generally states she has been feeling well. She has a history of COPD she tested positive as an outpatient I was able to get a hold of a family member and verified that her symptoms began 10 to 11 days ago. MD complaint: has COVID symptoms Prior covid testing: yes, results known COVID 19 common symptoms: positive fever(s), chills, cough, non-productive cough, dyspnea and body aches; negative productive cough, fatigue, headache(s), loss of sense of smell and/or taste, throat pain, nasal congestion, nausea, vomiting, diarrhea or chest tightness COVID 19 other sytmptoms: negative chest pain or requiring oxygen Onset (ago): day(s) (04-21) Severity: mild Pertinent comorbid conditions: COPD/respiratory disease Treatment prior to arrival: none COVID Results: SARS-CoV-2 Antigen (Rapid) Negative (Negative) 06/09/21 16:14 06/09/21 SARS-CoV-2 RNA (RT-PCR) Detected (NOT DETECTED) A 09/11/21 09:28 09/11/21 Nasal/Oral Coronavirus 2019 PCR Not detected 06/09/21 16:14 06/09/21 Review of Systems Const: Reports: fever(s), chills and body aches; Denies: fatigue ENMT: Denies: throat pain or nasal congestion Card: Denies: chest pain, edema, dyspnea on exertion or orthopnea Resp: Reports: dyspnea and non-productive cough; Denies: productive cough GI: Denies: nausea, vomiting or diarrhea : Denies: flank pain, difficulty voiding, dysuria, urinary frequency or urinary urgency Skin/Breast: Denies: rash or pruritus Neuro: Denies: headache(s) PFS ED PFSH: Medical History Acute and chronic respiratory failure with hypercapnia Acute pulmonary embolism Adult failure to thrive At low risk for fall Carotid arterial disease Degenerative lumbar disc Dorsalgia Emaciated Facet arthropathy, lumbar Hepatic lesion Hypertension Left foot drop Leg swelling Long-term current use of opiate analgesic Lumbar disc disease Lung nodule Lymphadenopathy Mass of pancreas Muscular deconditioning Myalgia, other site Opioid contract exists Other bursitis of hip, left hip Pancreatic lesion Pulmonary embolism PVD (peripheral vascular disease) Smoker Spasm of back muscles Unstable left ankle Surgical History S/P appendectomy 1960 Status post hip hemiarthroplasty LEFT HIP - 05/12/19 Family History Mother Cancer Father Heart disease Brother Heart disease Social History Second hand smoke exposure: No Alcohol intake: never Caregiver/support person: Yes (LIVES WITH DAUGHTER) Lives independently: Yes Current occupational status: retired Previous occupational history: [employer]ING [employer] History of recent travel: No Physical Exam Const: COMMON NORMALS: no acute distress GENERAL APPEARANCE: cooperative and comfortable ORIENTATION/CONSCIOUSNESS: Yes oriented to person, Yes oriented to place and Yes oriented to time HENMT: COMMON NORMALS: normocephalic, atraumatic and hearing grossly normal bilaterally HEAD & SCALP: normocephalic and atraumatic Neck/C-Spine: COMMON NORMALS: no JVD Resp: COMMON NORMALS: normal respiratory effort, No retractions, No use of accessory muscles and clear to auscultation bilaterally AUSCULTATION: clear to auscultation bilaterally Cardio: COMMON NORMALS: no JVD, regular rate, regular rhythm and No murmurs present (Cardio) RATE: regular rate RHYTHM: regular rhythm GI: COMMON NORMALS: Soft to palpation and No hepatosplenomegaly present AUSCULTATION: Yes normoactive bowel sounds PALPATION: Yes Soft to palpation, No Tenderness to palpation present (GI), No Guarding due to palpation present (GI) and Yes No hepatosplenomegaly present Extremity: COMMON NORMALS: normal to inspection, capillary refill normal, no clubbing, cyanosis or edema, no calf tenderness and no pedal edema Neuro: SENSORIUM/ORIENTATION: Yes oriented to person, Yes oriented to place and Yes oriented to time Skin: COMMON NORMALS: no rashes or lesions noted GENERAL SKIN EXAM: no rashes or lesions noted Course Vital Signs: Vital signs: Vital Signs Temperature 98 F 09/13/21 14:09 Pulse Rate 86 09/13/21 15:32 Respiratory Rate 22 H 09/13/21 15:32 Blood Pressure 156/67 09/13/21 15:32 Pulse Oximetry 98 09/13/21 15:32 MDM - COVID Medical Decision Making Generally patient is feeling well she has no respiratory distress and her oxygen sats are stable. Wearing [place] discharge her home and will think she needs to be hospitalized she is 10 or more days out from onset of symptoms that was confirmed by family member so she not really qualifying for any Medical Records I reviewed the patient's medical records. Lab Data I reviewed the patient's lab results. Radiology Impressions Chest X-Ray 09/13/21 14:26 IMPRESSION: COPD morphology of the chest, similar to the prior study. No evidence for acute cardiopulmonary disease. SARS-CoV-2 Antigen (Rapid) Negative (Negative) 06/09/21 16:14 06/09/21 SARS-CoV-2 RNA (RT-PCR) Detected (NOT DETECTED) A 09/11/21 09:28 09/11/21 Nasal/Oral Coronavirus 2019 PCR Not detected 06/09/21 16:14 06/09/21 Discharge Plan Discharge Patient Disposition: Home Clinical Impression: COVID-19 Condition: Stable Prescriptions: No Action gabapentin 300 mg capsule 300 mg PO BID 0RF Label Comments: pcp rx pantoprazole 40 mg tablet,delayed release (DR/EC) 40 mg PO DAILY@15 0RF Myrbetriq 25 mg tablet extended release 24 hr 25 mg PO DAILY 0RF Trelegy Ellipta 100-62.5-25 mcg blister with device 1 inh inhalation DAILY Qty: 60 3RF cyclobenzaprine 10 mg Tablet 10 mg PO TID PRN (Reason: Muscle Spasms) Qty: 90 1RF sennosides-docusate sodium [Stool Softener-Laxative] 8.6-50 mg Tablet 1 tab PO DAILY Qty: 60 1RF amlodipine 10 mg Tablet 10 mg PO DAILY@15 Qty: 30 3RF lisinopril 10 mg Tablet 5 mg PO DAILY Qty: 30 3RF oxycodone 5 mg capsule 5 mg PO DAILY PRN (Reason: pain) Qty: 20 0RF Rx Instructions: rx written 06/12/21 [facility] 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 w asnt covered by the pts insurance methocarbamol 750 mg tablet 750 mg PO BID Qty: 60 2RF Eliquis 5 mg tablet 5 mg PO BID Qty: 90 3RF Rx Instructions: 10mg bid for 5 days and then 5mg bid onwards (rx filled on 06/12/21 30d/s) hydrocodone-acetaminophen 5-325 mg tablet 1 tab PO Q8H PRN (Reason: pain) Qty: 30 0RF albuterol sulfate [ProAir HFA] 90 mcg/actuation HFA aerosol inhaler 2 puff INHALATION Q4H PRN (Reason: Wheezing) 0RF tizanidine 4 mg tablet 4 mg PO BID PRN (Reason: Muscle Pain) 0RF Stool Softener-Laxative 8.6-50 mg Tablet 2 tab PO BID Qty: 20 0RF Augmentin 875-125 mg tablet 1 tab PO BID Qty: 20 0RF Discharge Orders: Discharge ED (Routine); Ordered 09/13/21 Ordered By: Manjinder Reyes Referrals: Mary Johnson NP [Primary Care Provider] - Discharge Diet: Usual diet Discharge Activity: Increase activity as tolerated Patient Instructions: COVID-19 (Coronavirus Disease 2019) (ED), Opioid Safety Activity Restrictions/Additional Instructions: Use oxygen at 2 L/min continuously at home. Follow-up with your primary care doctor or division order technician within the next week return if you have further problems. Coding Level of Care Code ED Bench Technician for Chg Fwd Exam Comprehensive
[2021-09-13 15:03] VITALS: O2SAT 97
[2021-09-13 15:32] VITALS: BP 156/67; PULSE 86; RESP 22; O2SAT 98
== END 2021-09-13 15:33 | disposition home or self-care (01) ==
PROVIDERS: Emergency Provider Family Medicine; PCP Nurse Practitioner
DX: U07.1 COVID-19 (principal); Z79.01 Long term (current) use of anticoagulants; Z86.711 Personal history of pulmonary embolism; I10 Essential (primary) hypertension
CPT/HCPCS: 71045; 99282

== ENCOUNTER → 2021-10-09 10:28 | Outpatient (BNVA) | payer MEDICARE, MEDICAID, SELFPAY | PROVIDERS: PCP Nurse Practitioner; Visit Provider Internal Medicine Pulmonary Disease | DX: I26.99 Other pulmonary embolism without acute cor pulmonale (principal); J44.9 Chronic obstructive pulmonary disease, unspecified; Z20.822 Contact with and (suspected) exposure to COVID-19 | CPT/HCPCS: 87631; 87635 ==

== ENCOUNTER 2021-11-06 15:27 | Emergency (ER) | payer MEDICARE, MEDICAID, SELFPAY ==
[2021-11-06] VITALS (21 sets, daily range): BP systolic 57–132; BP diastolic 34–61; PULSE 79–96; RESP 13–22; O2SAT 84–99
--- NOTE | 2021-11-06 15:32 | XRR_ITS ---
PROCEDURE INFORMATION: Exam: XR Chest Exam date and time: 11/06/2021 5:08 PM Age: 76 years old Clinical indication: Other: Dyspnea TECHNIQUE: Imaging protocol: XR of the chest. Views: 1 view. COMPARISON: CT angio chest abdomen pelvis 11/06/2021 4:15 PM FINDINGS: Lungs: Hyperinflated, emphysematous changes of the lungs. Atelectasis of the majority of the left lower lobe. Nodular opacities in the right lung corresponding to findings on accompanying CT. Pleural spaces: Small volume left pleural effusion better appreciated on CT. No pneumothorax. Heart/Mediastinum: No cardiomegaly. Bones/joints: Visualized osseous structures are intact. XR/XR chest 1V portable [id number] IMPRESSION: Sequela of COPD with atelectasis of the majority of the left lower lobe and nodular opacities corresponding to lesions seen on accompanying CT.
--- NOTE | 2021-11-06 15:33 | ECG_ITS ---
[facility] Test Date: 2021-11-06 Pat Name: Deepali Farah Department: Room: Gender: Female Home Care Giver: : 1945 Requested By: Jen Brady Order Number: [id number] Isadora MD: Ramy Chavez M.D. Measurements Intervals [place] Rate: 97 P: 89 NV: 144 QRS: 77 QRSD: 86 T: 145 QT: 323 QTc: 411 Interpretive Statements SINUS RHYTHM MODERATE ST DEPRESSION [0.05+ mV ST DEPRESSION] ABNORMAL QRS-T ANGLE [QRS-T AXIS DIFFERENCE > 60] Compared to ECG 06/27/2021 05:51:32 No significant changes Electronically Signed On 11-06-2021 16:49:03 CDT by Ramy Chavez M.D. [email or web address]
[2021-11-06] MEDS: famotidine 20 mg/2 mL INJ IVP (15:45)
--- NOTE | 2021-11-06 15:51 | CTR_ITS ---
PROCEDURE INFORMATION: Exam: CTA Chest With Contrast Exam date and time: 11/06/2021 4:25 PM Age: 76 years old Clinical indication: Right-sided; Abdominal pain; Generalized; Additional info: Severe abd pain TECHNIQUE: Imaging protocol: Computed tomographic angiography of the chest with contrast. 3D rendering (Not supervised by radiologist): MIP and/or 3D reconstructed images were created by the technologist. Radiation optimization: All CT scans at this facility use at least one of these dose optimization techniques: automated exposure control; mA and/or kV adjustment per patient size (includes targeted exams where dose is matched to clinical indication); or iterative reconstruction. Contrast material: OMNIPAQUE 350; Contrast volume: 95 ml; Contrast route: INTRAVENOUS (IV); COMPARISON: 1. CT angio chest [id number] 06/09/2021 3:[address] abdomen pelvis w con* [id number] 06/27/2021 9:17 AM RADIATION DOSE METRICS: Total DLP (mGy-cm): 888.67 FINDINGS: Pulmonary arteries: Normal. No pulmonary emboli. Aorta: Unremarkable. No aortic aneurysm. No aortic dissection. Lungs: There is atelectasis of the majority of the left lower lobe. Multiple new spiculated solid lesions within both lungs. A few examples are given. A spiculated lesion in the posterior left upper lobe measures 1.9 cm in size as seen on series 2, image 151. A lobulated solid lesion in the anterior right upper lobe measures 1.6 cm series 2 image 194. A spiculated right perifissural lesion measuring 7 mm as noted on series 2, image 251. Moderate centrilobular emphysematous changes of the lungs noted. Some debris is noted within the posterior bronchials at the right lung base. Pleural spaces: Small volume left pleural effusion. No pneumothorax. Heart: No cardiomegaly. Trace pericardial fluid. Lymph nodes: Nonspecific mildly enlarged mediastinal lymph nodes. Bones/joints: No acute fracture. No aggressive osseous lesion. Soft tissues: Unremarkable. PROCEDURE INFORMATION: Exam: CTA Abdomen and Pelvis With Contrast Exam date and time: 11/06/2021 4:25 PM Age: 76 years old Clinical indication: Right-sided; Abdominal pain; Generalized; Additional info: Severe abd pain TECHNIQUE: Imaging protocol: Computed tomographic angiography of the abdomen and pelvis with contrast material. 3D rendering (Not supervised by radiologist): MIP and/or 3D reconstructed images were created by the technologist. Radiation optimization: All CT scans at this facility use at least one of these dose optimization techniques: automated exposure control; mA and/or kV adjustment per patient size (includes targeted exams where dose is matched to clinical indication); or iterative reconstruction. Contrast material: OMNIPAQUE 350; Contrast volume: 95 ml; Contrast route: INTRAVENOUS (IV); COMPARISON: 1. CT angio chest [id number] 06/09/2021 3:[address] abdomen pelvis w con* [id number] 06/27/2021 9:17 AM RADIATION DOSE METRICS: Total DLP (mGy-cm): 1103.1 FINDINGS: Aorta: No aortic aneurysm. No aortic dissection. 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 Mild stenosis at the superior mesenteric origin. No occlusion. Renal arteries: No occlusion or significant stenosis. Right iliac arteries: No occlusion or significant stenosis. Left iliac arteries: No occlusion or significant stenosis. Liver: Moderate diffuse intrahepatic biliary dilation is noted. No evident mass. Gallbladder and bile ducts: Edematous wall thickening of the gallbladder is noted. No calcified stones are appreciated. There is dilation of the common bile duct up to 1 cm with abrupt tapering in the distal common bile duct proximal to the ampulla. This is more conspicuous than prior studies measuring up to 7 mm previously. Pancreas: Unremarkable. No mass. No ductal dilation. Spleen: Unremarkable. No splenomegaly. Adrenal glands: Unremarkable. No mass. Kidneys and ureters: Punctate nonobstructing stone left kidney series 3, image 18. No solid mass. No hydronephrosis. Stomach and bowel: The gastric antrum and proximal aspect of the duodenum appears to demonstrate mild edematous wall thickening and mucosal hyperenhancement. Distended fluid-filled stomach proximal to the antrum. There is also diffuse fluid-filled loops of small bowel and colon. No clear transition point to indicate obstruction. Stool noted within the distal colon. Appendix: No evidence of appendicitis. Intraperitoneal space: No free air. No significant fluid collection. Lymph nodes: No enlarged lymph nodes. Urinary bladder: Unremarkable. No mass. Reproductive: Unremarkable as visualized. Bones/joints: No acute fracture. No aggressive osseous lesion. Left total hip arthroplasty noted. Soft tissues: Unremarkable. CT/CT angio chest abdomen pelvis IMPRESSION: 1. Atelectasis of the majority of the left lower lobe. Unclear if this is the result of aspiration given the fluid-filled stomach or mucous plugging, an obstructing bronchial lesion is not excluded. There is heterogeneous appearance of the atelectatic lung, correlate for signs of superimposed infection. 2. Multiple spiculated and solid-appearing lesions within both lungs which are new from prior study and raise concern for potential malignancy. 3. Moderate emphysematous changes of the lungs. Debris is seen in the posterior the bronchials in the left lung base either mucous plugging or sequela of aspiration. 4. Small volume left pleural effusion. IMPRESSION: 1. Edematous wall thickening of the gallbladder with moderate intrahepatic biliary dilation and dilation of the common bile duct. There is abrupt tapering of the distal common bile duct proximal to the ampulla. While the biliary dilation was present to a milder degree previously, it is much more conspicuous on today's study and the gallbladder wall thickening is new. These findings raise concern for biliary obstruction with superimposed cholecystitis. Would recommend pre and postcontrast MRCP for further evaluation. 2. The gastric antrum and proximal portion of the duodenum appears to demonstrate mild edematous wall thickening and mucosal hyperenhancement. Findings could reflect gastritis/duodenitis or be reactive to the above process. 3. Fluid-filled distention of the stomach proximal to the antrum as well as several fluid-filled loops of small bowel and colon. Again these findings are nonspecific possibly secondary to gastroenteritis. 4. Punctate nonobstructing stone in the left kidney.
[2021-11-06 15:52] LABS: Glucose Point of Care 176 mg/dL (70-110)
[2021-11-06] MEDS: sodium chloride 0.9% 1,000 ML 999 ML IV ×2 (15:52→15:53)
[2021-11-06 15:55] LABS: Basophils % 0.2 %; Eosinophils # 0.1 10^3/uL (0.0-0.8); Eosinophils % 0.4 %; Hematocrit 29.6 % (37.0-47.0); Hemoglobin 9.2 g/dL (11.5-15.3); Lymphocytes # 1.7 10^3/uL (0.8-4.8); Lymphocytes % 9.9 %; Mean Corpuscular HGB Conc 31.1 g/dL (30.0-36.0); Mean Corpuscular Hemoglobin 28.6 pg (28.0-34.0); Mean Corpuscular Volume 91.9 fl (81-99); Mean Platelet Volume 8.4 fL (7.4-10.4); Monocytes # 0.3 10^3/uL (0.2-0.9); Monocytes % 1.9 %; Neutrophils # 14.67 10^3/uL (1.8-7.7); Neutrophils % 86.1 %; Nucleated Red Blood Cells % 0 %; Platelet Count 495 10^3/cmm (130-400); Red Blood Count 3.22 10^6/uL (4.1-5.3); Red Cell Distribution Width 15.3 % (12.1-15.1)
--- NOTE | 2021-11-06 16:00 | PC.NURSE ---
PT placed on continuous NIBP, SpO2, CM
--- NOTE | 2021-11-06 16:01 | W.ED.GENADLT ---
HPI - General Adult General: Chief complaint: Abdominal Pain Stated complaint: ABD PAIN, AMS Time Seen by Provider: 11/06/21 15:31 History of Present Illness: Patient is a 76-year-old female with history of hypercapnic respiratory failure, pulmonary embolism on eliquis, HTN and failure to thrive presenting to the emergency room for acute onset of altered mental status and abdominal pain x1 day. Per EMS, patient has had been having constipation for the last 3 days. However today, patient tells her daughter that she is having significant abdominal pain. EMS was called and patient was brought to the emergency room. In route, patient appropriate for 70/40. Arrival, patient is AAO x2, answering all my questions reports that she is having significant abdominal pain since this morning. Patient denies any nausea/vomiting, diarrhea, melena/hematochezia. Patient denies any hematemesis or blood in stool. In addition, patient is currently on 8 L of oxygen. He tells me that she is chronically on oxygen but does not know how much. Onset:1 day Duration:ongoing Location:home Severity:severe Associated symptoms: Reports dyspnea; Deny chest pain, nausea, rash, palpitations or vomiting Review of Systems Const: Denies: fever(s) or chills Eyes: Denies: change in vision ENMT: Denies: mouth pain Card: Denies: chest pain or palpitations Resp: Reports: dyspnea; Denies: non-productive cough GI: Reports: abdominal pain; Denies: nausea, vomiting or diarrhea : Denies: dysuria Musc: Denies: extremity pain Skin/Breast: Denies: rash or new lesions Neuro: Denies: weakness in extremities Psych: Reports: other (Normal mood) [place]/Lymph: Denies: easy bruising PFS ED PFSH: Medical History Acute and chronic respiratory failure with hypercapnia Acute pulmonary embolism Adult failure to thrive At low risk for fall Carotid arterial disease Degenerative lumbar disc Dorsalgia Emaciated Facet arthropathy, lumbar Hepatic lesion Hypertension Left foot drop Leg swelling Long-term current use of opiate analgesic Lumbar disc disease Lung nodule Lymphadenopathy Mass of pancreas Muscular deconditioning Myalgia, other site Opioid contract exists Other bursitis of hip, left hip Pancreatic lesion Pulmonary embolism PVD (peripheral vascular disease) Smoker Spasm of back muscles Unstable left ankle Surgical History S/P appendectomy 1960 Status post hip hemiarthroplasty LEFT HIP - 05/12/19 Family History Mother Cancer Father Heart disease Brother Heart disease Social History Second hand smoke exposure: No Alcohol intake: never Caregiver/support person: Yes (LIVES WITH DAUGHTER) Lives independently: Yes Current occupational status: retired Previous occupational history: [employer] History of recent travel: No Physical Exam HENMT: COMMON NORMALS: atraumatic HEAD & SCALP: atraumatic MOUTH: moist mucous membranes abnormal and other (+mouth open and gaping) Eye: COMMON NORMALS: conjunctivae normal CONJUNCTIVA: Yes conjunctivae normal Neck/C-Spine: OTHER: no obvious deformity Resp: OTHER: + Decreased breath sounds bilaterally, mild increased muscle use Cardio: COMMON NORMALS: regular rate RATE: regular rate GI: COMMON NORMALS: Soft to palpation PALPATION: Yes Soft to palpation OTHER: + Moderate Diffuse tenderness to palpation throughout the abdomen, no guarding no rebound tenderness Extremity: COMMON NORMALS: no calf tenderness Neuro: SENSORIUM/ORIENTATION: Yes Orientation impaired and Yes stuporous OTHER: Patient is unable to follow command, AAOx2, occasionally answering question, moving all extremities Psych: COMMON NORMALS: speech normal SPEECH: Yes normal speech MOOD & AFFECT: Yes euthymic mood Procedures Central Line Placement Left Femoral: Time Out Performed: Yes Patient Placed on Monitor/Pulse Ox: Yes Prep: mask, gown and gloves Central Line Prep: Povidone-Iodine 1% Local Anesthetic: lidocaine 1% Amount of anesthesia used (mL): 5 Ultrasound Used for Placement: Yes Central Line Lumen Inserted: triple Additional Comments: Failed after 2 attempts, then tried R fem Right Femoral: Time Out Performed: Yes Patient Placed on Monitor/Pulse Ox: Yes Prep: mask, gown and gloves Central Line Prep: Povidone-Iodine 1%, Chlorhexidine scrub and sterile drapes applied Local Anesthetic: lidocaine 1% Ultrasound Used for Placement: Yes Central Line Lumen Inserted: triple Post Procedure: sutured in place, good blood return, all ports aspirated, flushed, capped and sterile dressing applied Post Procedure X-Ray: tip of catheter in good position Patient Tolerated Procedure: well and no complications Course Vital Signs: Vital signs: Vital Signs Pulse Rate 81 11/06/21 20:40 Respiratory Rate 16 11/06/21 20:40 Blood Pressure 125/48 11/06/21 20:40 Pulse Oximetry 99 11/06/21 20:40 MDM - General Adult Medical Decision Making 76-year-old female with a history of pulmonary embolism on Eliquis, failure to thrive, acute on chronic Hypercapnic respiratory failure, hypertension presenting to the emergency room with concerns of altered mental status and abdominal pain. Patient is AAO x2 mildly confused but reports she is having significant abdominal pain. Patient has diffuse abdominal tenderness palpation no any guarding or rebound tenderness. Patient appears to be dry on exam. Initial blood pressure of 70/40. Patient was started on norepinephrine peripherally. Central line was placed in the right [place]. Please refer to the procedure note. Patient has a white count 17.0. Hemoglobin 9.2 similar to baseline. CTA chest/abd/pelvis showed acute choelcystitis with CBD dilation. Patient also has duodenitis and gastritis. Patient received vancomycin and cefepime. Lactic acid of 3.1. Blood culture pending. UA pending. X-ray chest showed no acute pathologies. CT head negative for any acute pathologies. Patient continues to protect her airway despite being on a liters of oxygen. COVID swab pending. Case was discussed with Dr. Huitron who agreed with the transfer to [facility] for possible surgical and GI management. Disposition: Transfer to outside hospital Lab Data : 11/06/21 15:45 11/06/21 15:45 Radiology Impressions Chest X-Ray 11/06/21 15:32 IMPRESSION: Sequela of COPD with atelectasis of the majority of the left lower lobe and nodular opacities corresponding to lesions seen on accompanying CT. Chest/Abdomen/Pelvis CTA 11/06/21 15:51 IMPRESSION: 1. Atelectasis of the majority of the left lower lobe. Unclear if this is the result of aspiration given the fluid-filled stomach or mucous plugging, an obstructing bronchial lesion is not excluded. There is heterogeneous appearance of the atelectatic lung, correlate for signs of superimposed infection. 2. Multiple spiculated and solid-appearing lesions within both lungs which are new from prior study and raise concern for potential malignancy. 3. Moderate emphysematous changes of the lungs. Debris is seen in the posterior the bronchials in the left lung base either mucous plugging or sequela of aspiration. 4. Small volume left pleural effusion. IMPRESSION: 1. Edematous wall thickening of the gallbladder with moderate intrahepatic biliary dilation and dilation of the common bile duct. There is abrupt tapering of the distal common bile duct proximal to the ampulla. While the biliary dilation was present to a milder degree previously, it is much more conspicuous on today's study and the gallbladder wall thickening is new. These findings raise concern for biliary obstruction with superimposed cholecystitis. Would recommend pre and postcontrast MRCP for further evaluation. 2. The gastric antrum and proximal portion of the duodenum appears to demonstrate mild edematous wall thickening and mucosal hyperenhancement. Findings could reflect gastritis/duodenitis or be reactive to the above process. 3. Fluid-filled distention of the stomach proximal to the antrum as well as several fluid-filled loops of small bowel and colon. Again these findings are nonspecific possibly secondary to gastroenteritis. 4. Punctate nonobstructing stone in the left kidney. Head CT 11/06/21 16:06 IMPRESSION: 1. No acute intracranial abnormality. 2. Moderate diffuse cerebral atrophy and sequela of chronic small vessel ischemic disease. Chronic appearing lacunar infarcts in the subinsular region on the left. Laboratory Results WBC 17.0 10^3/uL (4.0-10.0) H 11/06/21 15:45 RBC 3.22 10^6/uL (4.1-5.3) L 11/06/21 15:45 Hgb 9.2 g/dL (11.5-15.3) L 11/06/21 15:45 Hct 29.6 % (37.0-47.0) L 11/06/21 15:45 MCV 91.9 fl (81-99) 11/06/21 15:45 MCH 28.6 pg (28.0-34.0) 11/06/21 15:45 MCHC 31.1 g/dL (30.0-36.0) 11/06/21 15:45 RDW 15.3 % (12.1-15.1) H 11/06/21 15:45 Plt Count 495 10^3/cmm (130-400) H 11/06/21 15:45 MPV 8.4 fL (7.4-10.4) 11/06/21 15:45 Neut % (Auto) 86.1 % 11/06/21 15:45 Lymph % (Auto) 9.9 % 11/06/21 15:45 [place] % (Auto) 1.9 % 11/06/21 15:45 Eos % (Auto) 0.4 % 11/06/21 15:45 Baso % (Auto) 0.2 % 11/06/21 15:45 Neut # (Auto) 14.67 10^3/uL (1.8-7.7) H 11/06/21 15:45 Lymph # (Auto) 1.7 10^3/uL (0.8-4.8) 11/06/21 15:45 [place] # (Auto) 0.3 10^3/uL (0.2-0.9) 11/06/21 15:45 Eos # (Auto) 0.1 10^3/uL (0.0-0.8) 11/06/21 15:45 Baso # (Auto) 0.0 10^3/uL (0.0-0.1) 11/06/21 15:45 Nucleated RBC % (auto) 0 % 11/06/21 15:45 Nucleated RBCs # 0.0 /100WBC 11/06/21 15:45 Specimen Type Arterial 11/06/21 15:55 Sample Site Brachial, left 11/06/21 15:55 ABG pH 7.26 (7.35-7.45) L 11/06/21 15:55 ABG pCO2 42.2 mmHg (35-45) 11/06/21 15:55 ABG pO2 140.0 mmHg (80.0-100.0) H 11/06/21 15:55 ABG HCO3 19.1 mmol/L (22-26) L 11/06/21 15:55 ABG O2 Saturation 98.9 11/06/21 15:55 ABG Base Excess -7.5 mmol/L (-2.0-2.0) L 11/06/21 15:55 Wily Test Pos 11/06/21 15:55 A-a O2 Gradient Not Reportable 11/06/21 15:55 Hematocrit 26.7 % (37-47) L 11/06/21 15:55 Hgb O2 Saturation 97.3 % (95-100) 11/06/21 15:55 Carboxyhemoglobin 0.4 %THgb (0.4-20.1) 11/06/21 15:55 Methemoglobin 1.2 % (0.4-1.5) 11/06/21 15:55 Total Hemoglobin 8.7 g/dL (12-16) L 11/06/21 15:55 Sodium 137.0 mmol/L (131-143) 11/06/21 15:55 Potassium 3.2 mmol/L (3.5-5.0) L 11/06/21 15:55 Glucose 164.0 mg/dL (70-115) H 11/06/21 15:55 Ionized Calcium 1.2 mmol/L (1.1-1.4) 11/06/21 15:55 O2 Delivery Device Nrb 11/06/21 15:55 O2 Liters/Min 15.0 % 11/06/21 15:55 Hob Grinder ID Cak 11/06/21 15:55 Sodium 136 mmol/L (136-145) 11/06/21 15:45 Potassium 3.8 mmol/L (3.5-5.1) 11/06/21 15:45 Chloride 103 mmol/L (98-107) 11/06/21 15:45 Carbon Dioxide 19 mmol/L (22-29) L 11/06/21 15:45 Anion Gap 17.8 (5-19) 11/06/21 15:45 BUN 9 mg/dL (8-23) 11/06/21 15:45 Creatinine 0.8 mg/dL (0.5-0.9) 11/06/21 15:45 GFR Calculation Not Reportable 11/06/21 15:45 Glucose 184 mg/dL (65-115) H 11/06/21 15:45 POC Glucose 176 mg/dL (70-110) H 11/06/21 15:49 Calculated Osmolality 285 mOsm/kg (285-295) 11/06/21 15:45 Lactate 3.1 mmol/L (0.5-2.2) H 11/06/21 15:45 Calcium 8.6 mg/dL (8.5-10.5) 11/06/21 15:45 Total Bilirubin 0.2 mg/dL (0.15-1.2) 11/06/21 15:45 AST 30 U/L (0-32) 11/06/21 15:45 ALT 17 U/L (0-33) 11/06/21 15:45 Alkaline Phosphatase 302 IU/L (35-105) H 11/06/21 15:45 Troponin T Baseline 30 ng/L (0-10) H 11/06/21 15:45 Troponin T 120 Minute 30.11 ng/L (0-10) H 11/06/21 17:28 Delta Troponin T 0.11 ABS# (0-10) 11/06/21 17:28 NT-Pro-B Natriuret Pep 258 pg/mL (0-450) 11/06/21 15:45 Total Protein 5.3 g/dL (6.6-8.7) L 11/06/21 15:45 Albumin 2.9 g/dL (3.5-5.2) L 11/06/21 15:45 Globulin 2.4 g/dL (1.3-4.6) 11/06/21 15:45 Lipase 42 U/L (13-60) 11/06/21 15:45 Urine Color Hannah (Yellow) 11/06/21 18:08 Urine Appearance Clear (CLEAR) 11/06/21 18:08 Urine pH 5 (5-7) 11/06/21 18:08 Ur Specific [place] 1.005 (1.005-1.030) 11/06/21 18:08 Urine Protein Trace (Negative) 11/06/21 18:08 Urine Glucose (UA) Norm (Normal) 11/06/21 18:08 Urine Ketones Negative (Negative) 11/06/21 18:08 Urine Blood 2+ (Negative) H 11/06/21 18:08 Urine Nitrate Negative (Negative) 11/06/21 18:08 Urine Bilirubin Neg (Negative) 11/06/21 18:08 Urine Urobilinogen Neg mg/dL (Negative) 11/06/21 18:08 Ur Leukocyte Esterase Negative (Negative) 11/06/21 18:08 Urine RBC 0-4 /hpf (0-2) H 11/06/21 18:08 Urine WBC Rare /hpf (0-5) 11/06/21 18:08 Ur Squamous Epith Cells Rare /hpf (0-5) 11/06/21 18:08 Amorphous Sediment Not Reportable 11/06/21 18:08 Urine Bacteria None /hpf (NONE) 11/06/21 18:08 Coronavirus 229E (PCR) Not detected (NOT DETECT) 11/06/21 17:21 Influenza Type A Ag Negative (Negative) 11/06/21 17:21 Influenza Type B Ag Negative (Negative) 11/06/21 17:21 SARS-CoV-2 (PCR) Not detected (NOT DETECT) 11/06/21 17:21 Imaging Data Other Imaging: Radiologist's impression: [employer] [facility] [address] [address] Scan Report Signed Patient: Deepali Farah Unit #: [id number] : 1945 Age/Sex: 76 / F ADM Date: 11/06/21 Loc: ER Room/Bed: Attending Dr: Ordering Provider/Ordering MD: Jen Brady MD Date of Service: 11/06/21 Procedure(s): CT head wo con* [id number] Accession Number(s): [id number] Report Number: [id number] PROCEDURE INFORMATION: Exam: CT Head Without Contrast Exam date and time: 11/06/2021 4:11 PM Age: 76 years old Clinical indication: Altered mental status/memory loss; Additional info: AMS TECHNIQUE: Imaging protocol: Computed tomography of the head without contrast. Radiation optimization: All CT scans at this facility use at least one of these dose optimization techniques: automated exposure control; mA and/or kV adjustment per patient size (includes targeted exams where dose is matched to clinical indication); or iterative reconstruction. COMPARISON: No relevant prior studies available. RADIATION DOSE METRICS: Total DLP (mGy-cm): 1103.1 FINDINGS: Brain: No hemorrhage. No edema. Moderate diffuse cerebral atrophy and sequela of chronic small vessel ischemic disease. Chronic appearing lacunar infarcts in the subinsular region on the left. No mass effect. Cerebral ventricles: No ventriculomegaly. Normal variant intact cavum septum pellucidum and et vergae. Paranasal sinuses: Visualized sinuses are unremarkable. No fluid levels. Mastoid air cells: Visualized mastoid air cells are well aerated. Bones/joints: Unremarkable. No acute fracture. Soft tissues: Unremarkable. CT/CT head wo con* [id number] IMPRESSION: 1. No acute intracranial abnormality. 2. Moderate diffuse cerebral atrophy and sequela of chronic small vessel ischemic disease. Chronic appearing lacunar infarcts in the subinsular region on the left. ? Dictated By: Ramos De Jesus DO Signed By: Ramos De Jesus DO Signed Date/Time: 11/06/21 1646 DD/ [address] [address] XRay Report Signed Patient: Deepali Farah Unit #: [id number] : 1945 Age/Sex: 76 / F ADM Date: 11/06/21 Loc: ER Room/Bed: Attending Dr: Ordering Provider/Ordering MD: Jen Brady MD Date of Service: 11/06/21 Procedure(s): XR chest 1V portable [id number] Accession Number(s): [id number] Report Number: [id number] PROCEDURE INFORMATION: Exam: XR Chest Exam date and time: 11/06/2021 5:08 PM Age: 76 years old Clinical indication: Other: Dyspnea TECHNIQUE: Imaging protocol: XR of the chest. Views: 1 view. COMPARISON: CT angio chest abdomen pelvis 11/06/2021 4:15 PM FINDINGS: Lungs: Hyperinflated, emphysematous changes of the lungs. Atelectasis of the majority of the left lower lobe. Nodular opacities in the right lung corresponding to findings on accompanying CT. Pleural spaces: Small volume left pleural effusion better appreciated on CT. No pneumothorax. Heart/Mediastinum: No cardiomegaly. Bones/joints: Visualized osseous structures are intact. XR/XR chest 1V portable [id number] IMPRESSION: Sequela of COPD with atelectasis of the majority of the left lower lobe and nodular opacities corresponding to lesions seen on accompanying CT. ? Dictated By: Ramos De Jesus DO Signed By: Ramos De Jesus DO Signed Date/Time: 11/06/21 1727 DD/ 1708 [facility] [address] [place] [address] CT Scan Report Signed Patient: Deepali Farah Unit #: [id number] : 1945 Age/Sex: 76 / F ADM Date: 11/06/21 Loc: ER Room/Bed: Attending Dr: Ordering Provider/Ordering MD: Jen Brady MD Date of Service: 11/06/21 Procedure(s): CT angio chest abdomen pelvis Accession Number(s): [id number] Report Number: [id number] PROCEDURE INFORMATION: Exam: CTA Chest With Contrast Exam date and time: 11/06/2021 4:25 PM Age: 76 years old Clinical indication: Right-sided; Abdominal pain; Generalized; Additional info: Severe abd pain TECHNIQUE: Imaging protocol: Computed tomographic angiography of the chest with contrast. 3D rendering (Not supervised by radiologist): MIP and/or 3D reconstructed images were created by the technologist. Radiation optimization: All CT scans at this facility use at least one of these dose optimization techniques: automated exposure control; mA and/or kV adjustment per patient size (includes targeted exams where dose is matched to clinical indication); or iterative reconstruction. Contrast material: OMNIPAQUE 350; Contrast volume: 95 ml; Contrast route: INTRAVENOUS (IV);? COMPARISON: 1. CT angio chest [id number] 06/09/2021 3:[address] abdomen pelvis w con* [id number] 06/27/2021 9:17 AM RADIATION DOSE METRICS: Total DLP (mGy-cm): 888.67 FINDINGS: Pulmonary arteries: Normal. No pulmonary emboli. Aorta: Unremarkable. No aortic aneurysm. No aortic dissection. Lungs: There is atelectasis of the majority of the left lower lobe. Multiple new spiculated solid lesions within both lungs. A few examples are given. A spiculated lesion in the posterior left upper lobe measures 1.9 cm in size as seen on series 2, image 151. A lobulated solid lesion in the anterior right upper lobe measures 1.6 cm series 2 image 194. A spiculated right perifissural lesion measuring 7 mm as noted on series 2, image 251. Moderate centrilobular emphysematous changes of the lungs noted. Some debris is noted within the posterior bronchials at the right lung base. Pleural spaces: Small volume left pleural effusion. No pneumothorax. Heart: No cardiomegaly. Trace pericardial fluid. Lymph nodes: Nonspecific mildly enlarged mediastinal lymph nodes. Bones/joints: No acute fracture. No aggressive osseous lesion. Soft tissues: Unremarkable. PROCEDURE INFORMATION: Exam: CTA Abdomen and Pelvis With Contrast Exam date and time: 11/06/2021 4:25 PM Age: 76 years old Clinical indication: Right-sided; Abdominal pain; Generalized; Additional info: Severe abd pain TECHNIQUE: Imaging protocol: Computed tomographic angiography of the abdomen and pelvis with contrast material. 3D rendering (Not supervised by radiologist): MIP and/or 3D reconstructed images were created by the technologist. Radiation optimization: All CT scans at this facility use at least one of these dose optimization techniques: automated exposure control; mA and/or kV adjustment per patient size (includes targeted exams where dose is matched to clinical indication); or iterative reconstruction. Contrast material: OMNIPAQUE 350; Contrast volume: 95 ml; Contrast route: INTRAVENOUS (IV);? COMPARISON: 1. CT angio chest [id number] 06/09/2021 3:[address] abdomen pelvis w con* [id number] 06/27/2021 9:17 AM RADIATION DOSE METRICS: Total DLP (mGy-cm): 1103.1 FINDINGS: Aorta: No aortic aneurysm. No aortic dissection. 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 Mild stenosis at the superior mesenteric origin. No occlusion. Renal arteries: No occlusion or significant stenosis. Right iliac arteries: No occlusion or significant stenosis. Left iliac arteries: No occlusion or significant stenosis. Liver: Moderate diffuse intrahepatic biliary dilation is noted. No evident mass. Gallbladder and bile ducts: Edematous wall thickening of the gallbladder is noted. No calcified stones are appreciated. There is dilation of the common bile duct up to 1 cm with abrupt tapering in the distal common bile duct proximal to the ampulla. This is more conspicuous than prior studies measuring up to 7 mm previously. Pancreas: Unremarkable. No mass. No ductal dilation. Spleen: Unremarkable. No splenomegaly. Adrenal glands: Unremarkable. No mass. Kidneys and ureters: Punctate nonobstructing stone left kidney series 3, image 18. No solid mass. No hydronephrosis. Stomach and bowel: The gastric antrum and proximal aspect of the duodenum appears to demonstrate mild edematous wall thickening and mucosal hyperenhancement. Distended fluid-filled stomach proximal to the antrum. There is also diffuse fluid-filled loops of small bowel and colon. No clear transition point to indicate obstruction. Stool noted within the distal colon. Appendix: No evidence of appendicitis. Intraperitoneal space: No free air. No significant fluid collection. Lymph nodes: No enlarged lymph nodes. Urinary bladder: Unremarkable. No mass. Reproductive: Unremarkable as visualized. Bones/joints: No acute fracture. No aggressive osseous lesion. Left total hip arthroplasty noted. Soft tissues: Unremarkable. CT/CT angio chest abdomen pelvis IMPRESSION: 1. Atelectasis of the majority of the left lower lobe. Unclear if this is the result of aspiration given the fluid-filled stomach or mucous plugging, an obstructing bronchial lesion is not excluded. There is heterogeneous appearance of the atelectatic lung, correlate for signs of superimposed infection. 2. Multiple spiculated and solid-appearing lesions within both lungs which are new from prior study and raise concern for potential malignancy. 3. Moderate emphysematous changes of the lungs. Debris is seen in the posterior the bronchials in the left lung base either mucous plugging or sequela of aspiration. 4. Small volume left pleural effusion. ? ? IMPRESSION: 1. Edematous wall thickening of the gallbladder with moderate intrahepatic biliary dilation and dilation of the common bile duct. There is abrupt tapering of the distal common bile duct proximal to the ampulla. While the biliary dilation was present to a milder degree previously, it is much more conspicuous on today's study and the gallbladder wall thickening is new. These findings raise concern for biliary obstruction with superimposed cholecystitis. Would recommend pre and postcontrast MRCP for further evaluation. 2. The gastric antrum and proximal portion of the duodenum appears to demonstrate mild edematous wall thickening and mucosal hyperenhancement. Findings could reflect gastritis/duodenitis or be reactive to the above process. 3. Fluid-filled distention of the stomach proximal to the antrum as well as several fluid-filled loops of small bowel and colon. Again these findings are nonspecific possibly secondary to gastroenteritis. 4. Punctate nonobstructing stone in the left kidney. ? Dictated By: Ramos De Jesus DO Signed By: Ramos De Jesus DO Signed Date/Time: 11/06/21 1723 DD/ 1625 Critical Care Time Critical Care Time: Critical Care Time: Yes Total Critical Care Time: 35 Attestation: The high probability of a clinically significant, sudden or life threatening deterioration of the patient's GI/pulmonary system(s) required my full and direct attention, intervention and personal management. The critical care time is as shown. 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
[2021-11-06 16:06] LABS: ABG PCO2 42.2 mmHg (35-45); ABG PH Result 7.26 (7.35-7.45); Arterial Blood Gas Hematocrit 26.7 % (37-47); Base Excess ABG -7.5 mmol/L (-2.0-2.0); Blood Gas Allen Test Pos; Blood Gas Operator Identificat CAK; Blood Gas Sample Site Brachial, left; Blood Gas Sample Type Arterial; Carboxyhemoglobin 0.4 %THgb (0.4-20.1); HCO3 ABG 19.1 mmol/L (22-26); HGB O2 Sat 97.3 % (95-100); Ionized Calcium Level - ABG 1.2 mmol/L (1.1-1.4); Methemoglobin 1.2 % (0.4-1.5); Oxygen Device NRB; Oxygen Saturation ABG 98.9; Potassium Level - ABG 3.2 mmol/L (3.5-5.0); Total Hemoglobin 8.7 g/dL (12-16)
--- NOTE | 2021-11-06 16:06 | CTR_ITS ---
PROCEDURE INFORMATION: Exam: CT Head Without Contrast Exam date and time: 11/06/2021 4:11 PM Age: 76 years old Clinical indication: Altered mental status/memory loss; Additional info: AMS TECHNIQUE: Imaging protocol: Computed tomography of the head without contrast. Radiation optimization: All CT scans at this facility use at least one of these dose optimization techniques: automated exposure control; mA and/or kV adjustment per patient size (includes targeted exams where dose is matched to clinical indication); or iterative reconstruction. COMPARISON: No relevant prior studies available. RADIATION DOSE METRICS: Total DLP (mGy-cm): 1103.1 FINDINGS: Brain: No hemorrhage. No edema. Moderate diffuse cerebral atrophy and sequela of chronic small vessel ischemic disease. Chronic appearing lacunar infarcts in the subinsular region on the left. No mass effect. Cerebral ventricles: No ventriculomegaly. Normal variant intact cavum septum pellucidum and et vergae. Paranasal sinuses: Visualized sinuses are unremarkable. No fluid levels. Mastoid air cells: Visualized mastoid air cells are well aerated. Bones/joints: Unremarkable. No acute fracture. Soft tissues: Unremarkable. CT/CT head wo con* [id number] IMPRESSION: 1. No acute intracranial abnormality. 2. Moderate diffuse cerebral atrophy and sequela of chronic small vessel ischemic disease. Chronic appearing lacunar infarcts in the subinsular region on the left.
[2021-11-06 16:17] LABS: Troponin(5th) Baseline 30 ng/L (0-10)
[2021-11-06 16:19] LABS: Lactate (Lactic Acid level) 3.1 mmol/L (0.5-2.2)
--- NOTE | 2021-11-06 16:30 | PC.NURSE ---
Physician placed central line in PT left femoral artery. Procedure began at 1430. PT tolerated procedure well.
[2021-11-06] MEDS: morphine 4 mg/mL SDV 1 mL 2 MG IVP (16:33)
[2021-11-06] MEDS: cefepime 1,000 MG in sodium chloride 0.9% (plus) 50 ML 100 MG IV (16:36)
[2021-11-06] MEDS: vancomycin 1,000 MG in sodium chloride 0.9% 250 ML 250 MG IV (17:10)
[2021-11-06 17:14] LABS: Alanine Aminotransferase 17 U/L (0-33); Albumin Level 2.9 g/dL (3.5-5.2); Alkaline Phosphatase 302 IU/L (35-105); Anion Gap 17.8 (5-19); Aspartate Amino Transferase 30 U/L (0-32); Blood Urea Nitrogen 9 mg/dL (8-23); Calcium 8.6 mg/dL (8.5-10.5); Carbon Dioxide 19 mmol/L (22-29); Chloride 103 mmol/L (98-107); Globulin 2.4 g/dL (1.3-4.6); Glucose 184 mg/dL (65-115); Lipase 42 U/L (13-60); NT Pro B Type Natriuretic Pept 258 pg/mL (0-450); Osmolality Calculated 285 mOsm/kg (285-295); Potassium 3.8 mmol/L (3.5-5.1); Sodium 136 mmol/L (136-145); Total Bilirubin 0.2 mg/dL (0.15-1.2); Total Protein 5.3 g/dL (6.6-8.7)
--- NOTE | 2021-11-06 17:25 | PC.PHAR ---
PT UNABLE TO VERIFY - VERIFIED USING EXTERNAL MED LIST AND PHARMACY FILLED AND PICKED UP
--- NOTE | 2021-11-06 17:33 | ECG_ITS ---
[facility] Test Date: 2021-11-06 Pat Name: Deepali Farah Department: Room: Gender: Female Certified Physician'S Assistant: : 1945 Requested By: Jen Brady Order Number: [id number] Muir MD: Ramy Chavez M.D. Measurements Intervals [place] Rate: 86 P: 76 MN: 127 QRS: 66 QRSD: 91 T: 90 QT: 338 QTc: 405 Interpretive Statements SINUS RHYTHM LOW QRS VOLTAGE IN EXTREMITY LEADS [QRS DEFLECTION < 0.5 mV IN LIMB LEADS] Compared to ECG 11/06/2021 16:30:59 Low QRS voltage now present ST (T wave) deviation no longer present Electronically Signed On 11-06-2021 23:51:26 CDT by Ramy Chavez M.D. [id number]
[2021-11-06 17:58] LABS: Influenza A by IFA Negative (Negative); Influenza B by IFA Negative (Negative)
[2021-11-06 18:10] LABS: Troponin 5 2HR 30.11 ng/L (0-10)
[2021-11-06 18:22] LABS: Troponin 5 2HR Delta 0.11 ABS# (0-10)
[2021-11-06 18:38] LABS: Add Urine Culture? No; Add Urine Microscopic? YES; Bilirubin Urine Neg (Negative); Blood Urine 2+ (Negative); Glucose Urine UA Norm (Normal); Ketones Urine Negative (Negative); Leukocyte Esterase Urine Negative (Negative); Nitrate Urine Negative (Negative); Protein Urine Trace (Negative); RBC Urine 0-4 /hpf (0-2); Specific Gravity, Urine 1.005 (1.005-1.030); Squamous Epithelial Cell Urine RARE /hpf (0-5); Urine Appearance Clear (CLEAR); Urine Color Amber (Yellow); Urobilinogen Urine Neg (Negative); WBC Urine RARE /hpf (0-5); pH Urine 5 (5-7)
--- NOTE | 2021-11-06 18:54 | PC.NURSE ---
Family member arrived to ED. Physician spoke with family. Family is aware of possible PT transfer to [facility].
--- NOTE | 2021-11-06 19:15 | PC.NURSE ---
1899 assumed pt care from Kadi HENDERSON
[2021-11-06 19:23] LABS: Adenovirus Not Detected (NOT DETECT); Chlamydia Pneumoniae Not Detected (NOT DETECT); Coronavirus 229E,HKU1,NL63,OC4 Not Detected (NOT DETECT); Human Metapneumovirus Not Detected (NOT DETECT); Human Rhinovirus/Enterovirus Not Detected (NOT DETECT); Influenza A Not Detected (NOT DETECT); Influenza A H1 Not Detected (NOT DETECT); Influenza A H1-2009 Not Detected (NOT DETECT); Influenza A H3 Not Detected (NOT DETECT); Influenza B Not Detected (NOT DETECT); Mycoplasma Pneumoniae Not Detected (NOT DETECT); Parainfluenza Virus Type 1 Not Detected (NOT DETECT); Parainfluenza Virus Type 2 Not Detected (NOT DETECT); Parainfluenza Virus Type 3 Not Detected (NOT DETECT); Parainfluenza Virus Type 4 Not Detected (NOT DETECT); Respiratory Syncytial Virus A Not Detected (NOT DETECT); Respiratory Syncytial Virus B Not Detected (NOT DETECT); SARS-COV-2 Not Detected (NOT DETECT)
[2021-11-06] MEDS: iohexol 350 mg/mL 100 mL Btl IV (19:43)
--- NOTE | 2021-11-06 19:44 | PC.NURSE ---
1914 Pt changed to simple mask 6L from NC 7L. Pt clothing removed and additional sheets removed. Pt placed in gown. New BP cuff placed more appropriate size.
--- NOTE | 2021-11-06 19:48 | PC.NURSE ---
[address] BP [address] Brady aware Norepi decreased to 5 mcg
== END 2021-11-06 20:40 | disposition admitted as inpatient to this hospital (09) ==
PROVIDERS: Emergency Provider Emergency Medicine; PCP Nurse Practitioner
DX: A41.9 Sepsis, unspecified organism (principal); K81.0 Acute cholecystitis; K83.8 Other specified diseases of biliary tract; R41.82 Altered mental status, unspecified; R10.9 Unspecified abdominal pain; J96.21 Acute and chronic respiratory failure with hypoxia; J96.22 Acute and chronic respiratory failure with hypercapnia; K29.80 Duodenitis without bleeding; I10 Essential (primary) hypertension; Z79.01 Long term (current) use of anticoagulants; Z86.711 Personal history of pulmonary embolism
CPT/HCPCS: 36415; 36416; 36556; 36600; 51702; 70450; 71045; 71275; 74174; 80051; 80053; 81001; 82330; 82805; 82962; 83605; 83690; 83880; 84484; 85025; 87040; 87635; 87804; 93005; 96365; 96366; 96367; 96375; 99291; C1751; J0692; J2270; J3370; J3490; J7030; J7050; Q9967